=== PATIENT | female | born 1945 | race Caucasian/White ===

== ENCOUNTER 2018-10-02 10:35 | Inpatient (IN) | payer MEDICARE, OTHER ==
[~2018-10-02] VITALS: Ht 162.6 cm; Wt 65.8 kg
[~2018-10-02 10:35] MED LIST: AMLODIPINE BESYL5 MG PO; ASPIR 8181 MG PO; ATORVASTATIN CA10 MG PO; B12 PO; FENOFIBRATE145 MG PO; LOSARTAN-HCTZ1 EAC1 PO; METOPROLOL SUCC25 MG PO; SYNTHROID50 MCG PO; VITAMIN D1000 UNI1 PO; ZETIA10 MG PO
--- OUTSIDE RECORDS SUMMARY | 2018-10-02 10:38 | XMS REPORT | Summary of Care ---
Author Organization Unknown Address Unknown Phone Unavailable Encounter HQ Encntr_clay(FIN) [id number] Date(s): 08/16/14 - 08/16/14 [facility] Outpatient Imaging - [place] [address] [address] [phone] Discharge Disposition: Home Physician Attending: Leann Finnegan MD Vital Signs No data available for this section Problem List Condition Effective Dates Status Health Status Informant Acid Active reflux(Confirmed) Blood Active clot(Confirmed)1 Fatty Active liver(Confirmed) High Active cholesterol(Confirme d) HTN(Confirmed) Active Hypothyroid(Confirme Active d) Sinusitis(Confirmed) Active 1right Allergies, Adverse Reactions, Alerts Substance Reaction Severity Status NKDA Active Medications No data available for this section Results No data available for this section Immunizations No data available for this section Procedures No data available for this section Social History Social History Type Response Assessment and Plan No data available for this section
--- OUTSIDE RECORDS SUMMARY | 2018-10-02 10:38 | XMS REPORT | CCD ---
Author Author Auto Generated Organization [facility] Address Unknown Phone Unavailable Care Team Providers Care Taxonomist Name Role Phone Valery Nieves RP Allergies, Adverse Reactions, Alerts Substance Reaction Status NKDA Active Problem List Condition Effective Dates Status Acid reflux Active Blood clot1 Active Fatty liver Active High cholesterol Active HTN Active Hypothyroid Active Sinusitis Active 1right Medications Medication Instructions Start Date End Date Status losartan 100 mg oral 100 mg, 1 tab, PO, Daily, 30 tab, 12/28/2012 01/03/2013 Discontinued tablet Substitution Allowed, TAB Levoxyl 50 mcg (0.05 50 microgram, 1 tab, PO, Daily, 30 12/28/2012 Ordered mg) oral tablet tab, Substitution Allowed, TAB FENOFIBRATE 145 MG FENOFIBRATE 145 MG TABLET, 1 01/03/2013 01/04/2013 Discontinued TABLET TABLET, Drug form: MISC, Route: PO, Bedtime, 01/03/13 21:00:00, Duration: 30 day, Stop date: 02/01/13 21:00:00 pantoprazole 40 mg 40 mg, 1 tab, PO, Daily, 30 tab, 12/28/2012 Ordered oral enteric coated Substitution Allowed, ECTAB tablet amLODipine 5 mg, PO, Daily, Substitution 12/28/2012 Ordered Allowed, TAB metoprolol 100 mg 100 mg, 1 tab, PO, Daily, 30 tab, 12/28/2012 Ordered oral tablet, Substitution Allowed extended release Plavix 75 mg oral 75 mg, 1 tab, PO, Daily, 30 tab, 12/28/2012 Ordered tablet Substitution Allowed, TAB plavix 75 mg tablet plavix 75 mg tablet, 1 tablet, Drug 01/04/2013 01/04/2013 Discontinued form: MISC, Route: PO, Daily, 01/04/13 9:00:00, Duration: 30 day, Stop date: 02/02/13 9:00:00 magnesium sulfate 2 2 gm, 50 mL, Route: IVPB, Drug 01/03/2013 01/03/2013 Completed gm in Water 50 ml form: INJ, ONCE, Dosing Weight 69.091, kg, Start date: 01/03/13 15:52:00, Duration: 2 hr, Stop date: 01/03/13 15:52:00 NS 500 mL 500 mL, Rate: 30 ml/hr, Infuse 01/03/2013 01/03/2013 Completed over: 16.7 hr, Route: INTRAARTERIAL, Dosing Weight 69.091 kg, Total Volume: 500, Start date: 01/03/13 7:13:00, Duration: 12 hr, Stop date: 01/03/13 19:12:00 lidocaine 0.1 mL, Route: IV, Drug form: INJ, 01/03/2013 01/03/2013 Completed ONCALL, Start date: 01/03/13 5:00:00, Duration: 1 doses or times flumazenil 0.2 mg, 2 mL, Route: IVP, Drug 01/03/2013 01/03/2013 Discontinued form: INJ, PRN, Dosing Weight 69.091, kg, PRN Benzodiazepine Reversal, Initial dose, Start date: 01/03/13 8:51:00, Duration: 8 hr, Stop date: 01/03/13 16:50:00 morphine Sulfate 2 mg, 1 mL, Route: IVP, Drug form: 01/03/2013 01/03/2013 Discontinued INJ, Q5Min, Dosing Weight 69.091, kg, PRN Pain Score 4-6, Start date: 01/03/13 8:51:00, Duration: 5 doses or times, Stop date: Limited # of times ondansetron 4 mg, 2 mL, Route: IVP, Drug form: 01/03/2013 01/03/2013 Discontinued INJ, ONCE, Dosing Weight 69.091, kg, PRN Nausea & Vomiting, Start date: 01/03/13 8:51:00 naloxone 0.04 mg, 0.1 mL, Route: IVP, Drug 01/03/2013 01/03/2013 Discontinued form: INJ, Q2MIN, Dosing Weight 69.091, kg, PRN Narcotic Reversal, Start date: 01/03/13 8:51:00, Duration: 8 doses or times, Stop date: Limited # of times Lactated Ringers 1,000 mL, Rate: 100 ml/hr, Infuse 01/03/2013 01/03/2013 Completed Injection IV 1,000 over: 10 hr, Route: IV, Dosing mL Weight 69.091 kg, Total Volume: 1,000, Start date: 01/03/13 5:00:00, Duration: 1 doses or times, Stop date: 01/03/13 14:59:00 METOPROLOL ER 100 MG METOPROLOL ER 100 MG TABLET, 1 01/04/2013 01/04/2013 Discontinued TABLET TABLET, Drug form: MISC, Route: PO, Daily, 01/04/13 9:00:00, Duration: 30 day, Stop date: 02/02/13 9:00:00 chlorhexidine 15 ml, Route: S&SPIT, Q12H, Drug 01/04/2013 01/04/2013 Discontinued topical 0.12% liquid form: LIQ, Start date: 01/04/13 9:00:00, Duration: 2 week, Stop date: 01/17/13 21:00:00 nitroglycerin 0.4 mg, 1 tab, Route: SL, Drug 01/04/2013 01/04/2013 Discontinued form: TAB, Q5Min, Dosing Weight 73, kg, PRN Chest Pain, Start date: 01/04/13 5:38:00, Duration: 30 day, Stop date: 02/03/13 5:37:00 chlorhexidine 1 pkt, Route: BATHE, Q-M-W-F, Drug 01/04/2013 01/04/2013 Discontinued topical 4% soap form: SOLN, Start date: 01/04/13 9:00:00, Duration: 30 day, Stop date: 02/01/13 9:00:00 docusate 100 mg, 1 cap, Route: PO, Drug 01/04/2013 01/04/2013 Discontinued form: CAP, BID, Dosing Weight 73, kg, PRN Constipation, Start date: 01/04/13 5:38:00, Duration: 30 day, Stop date: 02/03/13 5:37:00 cefazolin + Sodium 1 gm, Route: IVPB, Drug form: 12/28/2012 01/03/2013 Discontinued Chloride 0.9% IV 100 PDR/INJ, ONCALL, Dosing Weight mL 64.545, kg, Start date: 12/28/12 11:00:00, Duration: 30 day, Stop date: 01/27/13 10:59:00 Sodium Chloride 0.9% 250 mL, Rate: call center supervisor for use with 12/28/2012 12/28/2012 Completed (titrate) 250 mL blood product administration, Dosing Weight 64.545, kg, Route: IV, Total Volume: 250, Duration: 12 hr, Stop date: 12/28/12 22:59:00, Replace Every: 12 hr Sodium Chloride 0.9% 1,000 mL, Rate: 125 ml/hr, Infuse 12/28/2012 01/03/2013 Discontinued IV 1,000 mL over: 8 hr, Route: IV, Dosing Weight 64.545 kg, Total Volume: 1,000, Start date: 12/28/12 10:43:00, Duration: 30 day, Stop date: 01/27/13 10:42:00 Xopenex 1.25 mg, Route: NEB, ONCE, Dosing 01/03/2013 01/03/2013 Completed Weight 69.091, kg, PRN Respiratory Protocol, Start date: 01/03/13 11:21:00, Stop date: 02/02/13 11:20:00 ZETIA 10 MG TABLET ZETIA 10 MG TABLET, 1 TABLET, Drug 01/04/2013 01/04/2013 Discontinued form: MISC, Route: PO, Daily, 01/04/13 9:00:00, Duration: 30 day, Stop date: 02/02/13 9:00:00 LOSARTAN/HCT 100-25 LOSARTAN/HCT 100-25 TABLET, 1 01/03/2013 01/04/2013 Discontinued TABLET TABLET, Drug form: MISC, Route: PO, Bedtime, 01/03/13 21:00:00, Duration: 30 day, Stop date: 02/01/13 21:00:00 pantoprazole 40 mg, 1 tab, Route: PO, Drug form: 01/03/2013 01/04/2013 Discontinued ECTAB, Before Dinner, Dosing Weight 69.091, kg, Start date: 01/03/13 16:30:00, Duration: 30 day, Stop date: 02/01/13 16:30:00 hydrochlorothiazide- 1 tab, PO, Daily, at bedtime, 30 01/03/2013 Ordered losartan 25 mg-100 tab, Substitution Allowed, mg oral tablet Maintenance, TAB at bedtime metoprolol extended 100 mg, 2 tab, Route: PO, Drug 01/04/2013 01/03/2013 Discontinued release form: ERTAB, Daily, Start date: 01/04/13 9:00:00, Duration: 30 day, Stop date: 02/02/13 9:00:00 Levoxyl 50 microgram, 1 tab, Route: PO, 01/04/2013 01/03/2013 Discontinued Drug form: TAB, Q630AM, Dosing Weight 69.091, kg, Start date: 01/04/13 6:30:00, Duration: 30 day, Stop date: 02/02/13 6:30:00 losartan 100 mg, 2 tab, Route: PO, Drug 01/04/2013 01/03/2013 Canceled form: TAB, Daily, Dosing Weight 69.091, kg, Start date: 01/04/13 9:00:00, Duration: 30 day, Stop date: 02/02/13 9:00:00 TriCor 144 mg, 3 tab, Route: PO, Drug 01/03/2013 01/03/2013 Discontinued form: TAB, Bedtime, Dosing Weight 69.091, kg, Start date: 01/03/13 21:00:00, Duration: 30 day, Stop date: 02/01/13 21:00:00 Zetia 10 mg, 1 tab, Route: PO, Drug form: 01/03/2013 01/03/2013 Discontinued TAB, Bedtime, Dosing Weight 69.091, kg, Start date: 01/03/13 21:00:00, Duration: 30 day, Stop date: 02/01/13 21:00:00 Plavix 75 mg, 1 tab, Route: PO, Drug form: 01/04/2013 01/03/2013 Discontinued TAB, Daily, Dosing Weight 69.091, kg, Start date: 01/04/13 9:00:00, Duration: 30 day, Stop date: 02/02/13 9:00:00 Omnicef 300 mg oral 300 mg, 1 cap, Route: PO, Drug 01/03/2013 01/03/2013 Discontinued capsule form: CAP, [id number], Dosing Weight 69.091, kg, Start date: 01/03/13 16:00:00, Duration: 30 day, Stop date: 02/02/13 4:00:00 amLODipine 5 mg, 1 tab, Route: PO, Drug form: 01/04/2013 01/03/2013 Discontinued TAB, Daily, Dosing Weight 69.091, kg, Start date: 01/04/13 9:00:00, Duration: 30 day, Stop date: 02/02/13 9:00:00 aspirin 81 mg 81 mg, 1 tab, Route: PO, Drug form: 01/03/2013 01/03/2013 Discontinued tablet, enteric ECTAB, Bedtime, Dosing Weight coated 69.091, kg, Start date: 01/03/13 21:00:00, Duration: 30 day, Stop date: 02/01/13 21:00:00 acetaminophen-hydroc 1 tab, PO, Q4H, PRN, 40 tab, Pain 01/04/2013 Ordered odone 325 mg-5 mg Score 1-3, Substitution Allowed, oral tablet Maintenance, TAB ondansetron 4 mg, 2 mL, Route: IVP, Drug form: 01/03/2013 01/04/2013 Discontinued INJ, Q8H, Dosing Weight 69.091, kg, PRN Nausea & Vomiting, Start date: 01/03/13 9:55:00, Duration: 30 day, Stop date: 02/02/13 9:54:00 promethazine 12.5 mg, 50 mL, Route: IVPB, Drug 01/03/2013 01/04/2013 Discontinued form: SOLN, Q6H, Dosing Weight 69.091, kg, PRN Nausea & Vomiting, Start date: 01/03/13 9:55:00, Duration: 30 day, Stop date: 02/02/13 9:54:00 nitroglycerin 0.4 mg, 1 tab, Route: SL, Drug 01/03/2013 01/04/2013 Discontinued form: TAB, Q5Min, Dosing Weight 69.091, kg, PRN Chest Pain, Start date: 01/03/13 9:55:00, Duration: 30 day, Stop date: 02/02/13 9:54:00 aspirin 81 mg 81 mg, Route: PO, Drug form: ECTAB, 01/04/2013 01/03/2013 Deleted tablet, enteric Daily, Dosing Weight 69.091, kg, coated Start date: 01/04/13 9:00:00, Duration: 30 day, Stop date: 02/02/13 9:00:00 morphine Sulfate 2 mg, 1 mL, Route: IVP, Drug form: 01/03/2013 01/04/2013 Discontinued INJ, Q2H, Dosing Weight 69.091, kg, PRN Pain Score 1-5, Start date: 01/03/13 9:55:00, Duration: 30 day, Stop date: 02/02/13 9:54:00 acetaminophen-hydroc 1 tab, Route: PO, Drug Form: TAB, 01/03/2013 01/04/2013 Discontinued odone 325 mg-5 mg Dosing Weight 69.091, kg, Q4H, PRN oral tablet Pain Score 1-3, Start date: 01/03/13 9:55:00, Duration: 30 day, Stop date: 02/02/13 9:54:00 cefazolin (SCIP) + 1 gm, Route: IVPB, [id number], Dosing 01/03/2013 01/04/2013 Completed Sodium Chloride 0.9% Weight 69.091, kg, Start date: IV 100 mL 01/03/13 15:00:00, Duration: 3 doses or times, Stop date: 01/04/13 7:00:00 Sodium Chloride 0.9% 1,000 mL, Rate: 100 ml/hr, Infuse 01/03/2013 01/03/2013 Completed IV 1,000 mL over: 10 hr, Route: IV, Dosing Weight 69.091 kg, Total Volume: 1,000, Start date: 01/03/13 9:55:00, Duration: 12 hr, Stop date: 01/03/13 21:54:00 amlodipine 5 mg amlodipine 5 mg tablet, 1 tablet, 01/04/2013 01/04/2013 Discontinued tablet Drug form: MISC, Route: PO, Daily, 01/04/13 9:00:00, Duration: 30 day, Stop date: 02/02/13 9:00:00 cefazolin 1 gm, Route: IVPB, ONCE, Dosing 01/03/2013 01/03/2013 Completed Weight 69.091, kg, Start date: 01/03/13 9:39:00, Duration: 1 doses or times, Stop date: 01/03/13 9:39:00 albuterol-ipratropiu 3 ml, Route: NEB, Drug Form: SOLN, 01/03/2013 01/04/2013 Discontinued m 2.5-0.5 mg Dosing Weight 69.091, kg, PRN, PRN inhalation solution Respiratory Protocol, Start date: 01/03/13 14:24:00, Duration: 30 day, Stop date: 02/02/13 14:23:00 LEVOXY 50 MCG TABLET LEVOXY 50 MCG TABLET, 1 TABLET, 01/04/2013 01/04/2013 Discontinued Drug form: MISC, Route: PO, Q630AM, 01/04/13 6:30:00, Duration: 30 day, Stop date: 02/02/13 6:30:00 Omnicef 300 mg oral 300 mg, 1 cap, PO, Q12H, 14 cap, 12/28/2012 01/03/2013 Discontinued capsule Substitution Allowed, CAP aspirin 81 mg 81 mg, 1 tab, PO, Daily, 0 tab, 12/28/2012 Ordered tablet, enteric Substitution Allowed, ECTAB coated Zetia 10 mg oral 10 mg, 1 tab, PO, Daily, 30 tab, 12/28/2012 Ordered tablet Substitution Allowed, TAB hydrochlorothiazide- 2 tab, Route: PO, Drug Form: TAB, 01/03/2013 01/03/2013 Discontinued losartan 25 mg-100 Dosing Weight 69.091, kg, Bedtime, mg oral tablet Start date: 01/03/13 21:00:00, Duration: 30 day, Stop date: 02/01/13 21:00:00 TriCor 145 mg, PO, Daily, Substitution 12/28/2012 Ordered Allowed, TAB ASPIRN EC 81 MG ASPIRN EC 81 MG TABLET, 1 TABLET, 01/03/2013 01/04/2013 Discontinued TABLET Drug form: MISC, Route: PO, Bedtime, 01/03/13 21:00:00, Duration: 30 day, Stop date: 02/01/13 21:00:00 niCARdipine 40 mg in 40 mg, 200 mL, Rate: Titrate, 01/03/2013 01/04/2013 Discontinued NS 200 ml IV 40 mg Dosing Weight 73, kg, Route: IV, Total Volume: 200 mL, Duration: 30 day, Stop date: 02/02/13 18:30:00, Replace Every: 24 hr Vital Signs Most recent to oldest [Reference Range]: 1 2 3 Height 162.56 cm (01/03/2013 16:39:00) 162.56 cm (12/28/2012 10:57:00) Current Weight 72 kg (01/04/2013 07:22:00) Temperature Oral [96.4-99.1 DegF] 97.4 DegF (01/04/2013 08:13:00) 97.6 DegF (01/04/2013 00:37:00) 97.5 DegF (01/03/2013 19:57:00) Systolic Blood Pressure [90-140 mmHg] 112 mmHg (01/04/2013 11:30:00) 119 mmHg (01/04/2013 11:00:00) 119 mmHg (01/04/2013 10:30:00) Diastolic Blood Pressure [60-90 mmHg] 60 mmHg (01/04/2013 11:30:00) 40 mmHg *LOW* (01/04/2013 11:00:00) 40 mmHg *LOW* (01/04/2013 10:30:00) Respiratory Rate [14-20 BRMIN] 20 BRMIN (01/04/2013 11:30:00) 30 BRMIN *HI* (01/04/2013 11:00:00) 22 BRMIN *HI* (01/04/2013 10:30:00) Peripheral Pulse Rate [60-100 bpm] 55 bpm *LOW* (01/03/2013 07:07:00) 63 bpm (01/03/2013 06:12:00) 65 bpm (12/28/2012 11:19:00) Weight 73 kg (01/03/2013 16:39:00) 69.091 kg (12/28/2012 10:57:00) Results BACTERIAL - SEROLOGY Most recent to oldest [Reference Range]: 1 2 3 MRSA by PCR Negative 1 (01/03/2013 15:45:00) 1Interpretive Data: Interpretive Data: The [employer] Light[employer]ycler MRSA assay is a qualitative test for the direct detection of nasal colonization with methicillin-resistant Staphylococcus aureus (MRSA) to aid in the prevention and control of MRSA infections in healthcare settings. A positive result does not indicate an infection or require treatment. A negative result does not exclude colonization or infection. The polymerase chain reaction (PCR) assay detects a proprietary sequence indicat patricia of the integration of the SCCmec cassette into the Staphylococcus aureus chr omosome, indicating the presence of MRSA DNA. The assay utilizes FDA cleared IV D reagents. Performance characteristics have been verified by the [facility] within the [facility]. The [facility] is authorized under the Clinical Laboratory Improvement Amendment of 1 988 (CLIA-88) to perform high complexity testing. BEDSIDE GLUCOSE TESTING Most recent to [Reference Range]: 1 2 3 Gluc POC Lifscn [70-99 mg/dL] 137 mg/dL 2 *HI* (01/04/2013 07:55:00) 212 mg/dL 3 *HI* (01/03/2013 20:33:00) 128 mg/dL 4 *HI* (01/03/2013 15:31:00) Comment1 Notify RN *NA* (01/03/2013 20:33:00) 2Interpretive Data: Upper Reportable Limit: 200 mg/dL. 3Interpretive Data: Upper Reportable Limit: 200 mg/dL. 4Interpretive Data: Upper Reportable Limit: 200 mg/dL. URINALYSIS Most recent to oldest [Reference Range]: 1 2 3 UA Turbidity [Clear] Clear (12/28/2012 11:15:00) UA Color STRAW *NA* (12/28/2012 11:15:00) UA pH [5.0-8.0] 6.0 (12/28/2012 11:15:00) UA Spec Grav [<=1.030] 1.010 (12/28/2012 11:15:00) UA Glucose [Negative] Negative (12/28/2012 11:15:00) UA Blood [Negative] Negative (12/28/2012 11:15:00) UA Ketones [Negative] Negative *NA* (12/28/2012 11:15:00) UA Protein [Negative] Negative (12/28/2012 11:15:00) UA Urobilinogen [0.1-1.0 EU/dL] 0.2 EU/dL (12/28/2012 11:15:00) UA Bili [Negative] Negative *NA* (12/28/2012 11:15:00) UA Leuk Est [Negative] Trace *ABN* (12/28/2012 11:15:00) UA Nitrite [Negative] Negative (12/28/2012 11:15:00) UA WBC [None Seen /HPF] 0-2 /HPF (12/28/2012 11:15:00) UA RBC [0-2] None Seen (12/28/2012 11:15:00) UA Bacteria [None Seen /HPF] Occasional /HPF (12/28/2012 11:15:00) UA Sq Epi [Few /LPF] Occasional /LPF (12/28/2012 11:15:00) BLOOD BANK RESULTS Most recent to oldest [Reference Range]: 1 2 3 ABO/Rh A POS *Unknown* (12/28/2012 11:15:00) Antibody Scrn Negative (12/28/2012 11:15:00) CHEMISTRY Most recent to oldest [Reference Range]: 1 2 3 Sodium Lvl [135-145 mEq/L] 138 mEq/L (12/28/2012 11:15:00) Potassium Lvl [3.5-5.1 mEq/L] 4.8 mEq/L (12/28/2012 11:15:00) Chloride Lvl [95-109 mEq/L] 102 mEq/L (12/28/2012 11:15:00) CO2 [24-32 mEq/L] 28 mEq/L (12/28/2012 11:15:00) AGAP [10.0-20.0 mEq/L] 12.8 mEq/L (12/28/2012 11:15:00) Creatinine Lvl [0.5-1.4 mg/dL] 0.8 mg/dL (12/28/2012 11:15:00) eGFR 77 mL/min/1.73m2 5 *NA* (12/28/2012 11:15:00) BUN [7-22 mg/dL] 29 mg/dL *HI* (12/28/2012 11:15:00) Glucose Lvl [70-99 mg/dL] 107 mg/dL 6 *HI* (12/28/2012 11:15:00) Calcium Lvl [8.5-10.5 mg/dL] 10.0 mg/dL (12/28/2012 11:15:00) Phosphorus [2.5-4.5 mg/dL] 3.5 mg/dL (12/28/2012::00) Magnesium Lvl [1.8-2.4 mg/dL] 1.7 mg/dL *LOW* (12/28/2012:15:00) AST [0-37 unit/L] 40 unit/L *HI* (12/28/2012::00) pH Art [7.35-7.45] 7.40 (12/28/2012 11:10:24) pCO2 Art [35-45 mmHg] 40 mmHg (12/28/2012:10:24) pO2 Art [80-100 mmHg] 82 mmHg (12/28/2012:10:24) HCO3 Art [22-26 mMol/L] 25 mMol/L (12/28/2012:10:24) BE Art [-2-2 mMol/L] 0 mMol/L (12/28/2012:10:24) O2 Sat Art [95.0-100.0 %] 96.0 % (12/28/2012 11:10:24) Site Art Left Rad (12/28/2012 11:10:24) Temp Art 37.0 DegC *NA* (12/28/2012 11:10:24) Allens Art Positive (12/28/2012:10:24) Mode Art Rm Air (12/28/2012:10:24) FiO2 Art 21.0 *NA* (12/28/2012 11:10:24) 5Result Comment: The eGFR is calculated using the CKD-EPI formula. In most young, healthy individuals the eGFR will be >90 mL/min/1.73m2. The eGFR declines with age. An eGFR of 60-89 may be normal in some populations, particularly the elderly, for whom the CKD-EPI formula has not been extensively validated. Use of the eGFR is not recommended in the following populations: Individuals with unstable creatinine concentrations, including patients and those with serious co-morbid conditions. Patients with extremes in muscle mass or diet. The data above are obtained from the National Kidney Disease Education Program ( NKDEP) which additionally recommends that when the eGFR is used in patients with extremes of body mass index for purposes of drug dosing, the eGFR should be mul tiplied by the estimated BMI. 6Interpretive Data: Adult reference range values reflect the clinical guidelines of the [place] [employer]. HEMATOLOGY Most recent to oldest [Reference Range]: 1 2 3 WBC [3.7-10.4 K/CMM] 7.7 K/CMM (12/28/2012:15:) RBC [4.20-5.40 M/CMM] 4.34 M/CMM (12/28/2012::) Hgb [12.0-16.0 g/dL] 13.0 g/dL (12/28/2012::) Hct [36.0-48.0 %] 40.3 % (12/28/2012) MCV [81.0-99.0 fL] 92.8 fL (12/28/2012) MCH [27.0-31.0 pg] 30.0 pg (12/28/2012) MCHC [32.0-36.0 g/dL] 32.3 g/dL (12/28/2012::) RDW [11.5-14.5 %] 14.1 % (12/28/2012) Platelet [133-450 K/CMM] 222 K/CMM (12/28/2012:) MPV [7.4-10.4 fL] 9.3 fL (12/28/2012::) Segs [45.0-75.0 %] 80.9 % *HI* (12/28/2012) Lymphocytes [20.0-40.0 %] 13.5 % *LOW* (12/28/2012) Monocytes [2.0-12.0 %] 5.0 % (12/28/2012) Eosinophils [0.0-4.0 %] 0.3 % (12/28/2012) Basophils [0.0-1.0 %] 0.3 % (12/28/2012) Segs-Bands # [1.5-8.1 K/CMM] 6.2 K/CMM (12/28/2012 11:15:00) Lymphocytes # [1.0-5.5 K/CMM] 1.0 K/CMM (12/28/2012 11:15:00) Monocytes # [0.0-0.8 K/CMM] 0.4 K/CMM (12/28/2012 11:15:00) Eosinophils # [0.0-0.5 K/CMM] 0.0 K/CMM (12/28/2012 11:15:00) Basophils # [0.0-0.2 K/CMM] 0.0 K/CMM (12/28/2012 11:15:00) PT [12.0-14.7 seconds] 13.3 seconds (12/28/2012 11:15:00) INR [0.85-1.17] 0.99 7 (12/28/2012 11:15:00) PTT [22.9-35.8 seconds] 27.4 seconds 8 (12/28/2012 11:15:00) 7Interpretive Data: RECOMMENDED RANGES FOR PROTIME INR: 2.0-3.0 for most medical and surgical thromboembolic states. 2.5-3.5 for artificial heart valves and recurrent embolism. INR SHOULD BE USED ONLY FOR PATIENTS ON STABLE ANTICOAGULANT THERAPY. 8Interpretive Data: Heparin Therapeutic Range: 57 - 92 Seconds Microbiology Reports PROCEDURE:Culture: MRSA STATUS: Auth (Verified) BODY SITE: Nares COLLECTED DATE/TIME: 12/28/2012 11:15:00 SOURCE: Nasal Swab FREE TEXT SOURCE: FINAL REPORTS Final Report No Methicillin Resistant Staphylococcus Aureus Isolated PROCEDURE:Culture: Urine STATUS: Auth (Verified) BODY SITE: COLLECTED DATE/TIME: 12/28/2012 11:15:00 SOURCE: Urine, Clean Catch FREE TEXT SOURCE: FINAL REPORTS Final Report No Growth PRELIMINARY REPORTS Preliminary Report No Growth; Holding Procedures Procedures Date Related Diagnosis Angioplasty of subclavian artery Appendectomy Arthrectomy Bunionectomy Cataract Femoral-popliteal artery bypass graft 1 History of - hysterectomy History of tonsillectomy 83976
--- OUTSIDE RECORDS SUMMARY | 2018-10-02 10:38 | XMS REPORT | Summary of Care ---
Author Organization Unknown Address Unknown Phone Unavailable Encounter HQ Coronantr_clay(FIN) [id number] Date(s): 07/03/14 - 07/03/14 [facility] Outpatient Imaging - [place] [address] [place] [id number]- [place] Discharge Disposition: Home Physician Attending: Leann Finnegan MD Reason for Visit V76.12 - SCREEN MAMMOGRA Problem List Condition Effective Dates Status Health Status Informant Acid Active reflux(Confirmed) Blood Active clot(Confirmed)1 Fatty Active liver(Confirmed) High Active cholesterol(Confirme d) HTN(Confirmed) Active Hypothyroid(Confirme Active d) Sinusitis(Confirmed) Active 1right Allergies, Adverse Reactions, Alerts Substance Reaction Severity Status NKDA Active Medications No data available for this section Medications Administered During Your Visit No data available for this section Immunizations No data available for this section Social History Social History Type Response
--- OUTSIDE RECORDS SUMMARY | 2018-10-02 10:38 | XMS REPORT | Continuity of Care Document ---
Author Author [facility] Interface Address Unknown Phone Unavailable Problems Problem Status Onset Date Classification Date Reported Comments Source 443.10 Active 12/16/2012 [place] Acid reflux Active Problem 02/21/2015 [facility] Blood clot<sup>1</sup> Active Problem 02/21/2015 right [facility] Fatty liver Active Problem 02/21/2015 [facility] High cholesterol Active Problem 02/21/2015 [facility] HTN Active Problem 02/21/2015 [facility] Hypothyroid Active Problem 02/21/2015 [facility] Sinusitis Active Problem 02/21/2015 [facility] Acid reflux Active Problem 01/06/2013 [facility] Blood clot<sup>1</sup> Active Problem 01/06/2013 1right [facility] Fatty liver Active Problem 01/06/2013 [facility] High cholesterol Active Problem 01/06/2013 [facility] HTN Active Problem 01/06/2013 [facility] Hypothyroid Active Problem 01/06/2013 [facility] Sinusitis Active Problem 01/06/2013 [facility] THROMBOANGIIT OBLITERANS Active [facility] Medications Medication Details Route Status Patient Instructions Ordering Provider Order Date Source plavix 75 mg tablet plavix 75 mg tablet, 1 tablet, Drug form: MISC, Route: PO, Daily, 01/04/13 9:00:00, Duration: 30 day, Stop date: 02/02/13 9:00:00 PO No Longer Active [place] 01/04/2013 [facility] METOPROLOL ER 100 MG TABLET METOPROLOL ER 100 MG TABLET, 1 TABLET, Drug form: MISC, Route: PO, Daily, 01/04/13 9:00:00, Duration: 30 day, Stop date: 02/02/13 9:00:00 PO No Longer Active [place] 01/04/2013 [facility] chlorhexidine topical 0.12% liquid 15 ml, Route: S&SPIT, Q12H, Drug form: LIQ, Start date: 01/04/13 9:00:00, Duration: 2 week, Stop date: 01/17/13 21:00:00 S&SPIT No Longer Active [place] 01/04/2013 [facility] chlorhexidine topical 4% soap 1 pkt, Route: BATHE, [id number], Drug form: SOLN, Start date: 01/04/13 9:00:00, Duration: 30 day, Stop date: 02/01/13 9:00:00 BATHE No Longer Active [place] 01/04/2013 [facility] ZETIA 10 MG TABLET ZETIA 10 MG TABLET, 1 TABLET, Drug form: MISC, Route: PO, Daily, 01/04/13 9:00:00, Duration: 30 day, Stop date: 02/02/13 9:00:00 PO No Longer Active [place] 01/04/2013 [facility] metoprolol extended release 100 mg, 2 tab, Route: PO, Drug form: ERTAB, Daily, Start date: 01/04/13 9:00:00, Duration: 30 day, Stop date: 02/02/13 9:00:00 PO No Longer Active [place] 01/04/2013 [facility] losartan 100 mg, 2 tab, Route: PO, Drug form: TAB, Daily, Dosing Weight 69.091, kg, Start date: 01/04/13 9:00:00, Duration: 30 day, Stop date: 02/02/13 9:00:00 PO No Longer Active te 01/04/2013 [facility] Plavix 75 mg, 1 tab, Route: PO, Drug form: TAB, Daily, Dosing Weight 69.091, kg, Start date: 01/04/13 9:00:00, Duration: 30 day, Stop date: 02/02/13 9:00:00 PO No Longer Active [place] 01/04/2013 [facility] amLODipine 5 mg, 1 tab, Route: PO, Drug form: TAB, Daily, Dosing Weight 69.091, kg, Start date: 01/04/13 9:00:00, Duration: 30 day, Stop date: 02/02/13 9:00:00 PO No Longer Active [place] 01/04/2013 [facility] aspirin 81 mg tablet, enteric coated 81 mg, Route: PO, Drug form: ECTAB, Daily, Dosing Weight 69.091, kg, Start date: 01/04/13 9:00:00, Duration: 30 day, Stop date: 02/02/13 9:00:00 PO No Longer Active te 01/04/2013 [facility] amlodipine 5 mg tablet amlodipine 5 mg tablet, 1 tablet, Drug form: MISC, Route: PO, Daily, 01/04/13 9:00:00, Duration: 30 day, Stop date: 02/02/13 9:00:00 PO No Longer Active [place] 01/04/2013 [facility] acetaminophen-hydrocodone 325 mg-5 mg oral tablet 1 tab, PO, Q4H, PRN, 40 tab, Pain Score 1-3, Substitution Allowed, Maintenance, TAB PO Active [facility] 01/04/2013 [facility] Levoxyl 50 microgram, 1 tab, Route: PO, Drug form: TAB, Q630AM, Dosing Weight 69.091, kg, Start date: 01/04/13 6:30:00, Duration: 30 day, Stop date: 02/02/13 6:30:00 PO No Longer Active te 01/04/2013 [facility] LEVOXY 50 MCG TABLET LEVOXY 50 MCG TABLET, 1 TABLET, Drug form: MISC, Route: PO, Q630AM, 01/04/13 6:30:00, Duration: 30 day, Stop date: 02/02/13 6:30:00 PO No Longer Active te 01/04/2013 [facility] nitroglycerin 0.4 mg, 1 tab, Route: SL, Drug form: TAB, Q5Min, Dosing Weight 73, kg, PRN Chest Pain, Start date: 01/04/13 5:38:00, Duration: 30 day, Stop date: 02/03/13 5:37:00 SL No Longer Active te 01/04/2013 [facility] docusate 100 mg, 1 cap, Route: PO, Drug form: CAP, BID, Dosing Weight 73, kg, PRN Constipation, Start date: 01/04/13 5:38:00, Duration: 30 day, Stop date: 02/03/13 5:37:00 PO No Longer Active [place] 01/04/2013 [facility] FENOFIBRATE 145 MG TABLET FENOFIBRATE 145 MG TABLET, 1 TABLET, Drug form: MISC, Route: PO, Bedtime, 01/03/13 21:00:00, Duration: 30 day, Stop date: 02/01/13 21:00:00 PO No Longer Active [place] 01/04/2013 [facility] LOSARTAN/HCT 100-25 TABLET LOSARTAN/HCT 100-25 TABLET, 1 TABLET, Drug form: MISC, Route: PO, Bedtime, 01/03/13 21:00:00, Duration: 30 day, Stop date: 02/01/13 21:00:00 PO No Longer Active [place] 01/04/2013 [facility] TriCor 144 mg, 3 tab, Route: PO, Drug form: TAB, Bedtime, Dosing Weight 69.091, kg, Start date: 01/03/13 21:00:00, Duration: 30 day, Stop date: 02/01/13 21:00:00 PO No Longer Active [place] 01/04/2013 [facility] Zetia 10 mg, 1 tab, Route: PO, Drug form: TAB, Bedtime, Dosing Weight 69.091, kg, Start date: 01/03/13 21:00:00, Duration: 30 day, Stop date: 02/01/13 21:00:00 PO No Longer Active [place] 01/04/2013 [facility] aspirin 81 mg tablet, enteric coated 81 mg, 1 tab, Route: PO, Drug form: ECTAB, Bedtime, Dosing Weight 69.091, kg, Start date: 01/03/13 21:00:00, Duration: 30 day, Stop date: 02/01/13 21:00:00 PO No Longer Active [place] 01/04/2013 [facility] hydrochlorothiazide-losartan 25 mg-100 mg oral tablet 2 tab, Route: PO, Drug Form: TAB, Dosing Weight 69.091, kg, Bedtime, Start date: 01/03/13 21:00:00, Duration: 30 day, Stop date: 02/01/13 21:00:00 PO No Longer Active [place] 01/04/2013 [facility] ASPIRN EC 81 MG TABLET ASPIRN EC 81 MG TABLET, 1 TABLET, Drug form: MISC, Route: PO, Bedtime, 01/03/13 21:00:00, Duration: 30 day, Stop date: 02/01/13 21:00:00 PO No Longer Active [place] 01/04/2013 [facility] niCARdipine 40 mg in NS 200 ml IV 40 mg 40 mg, 200 mL, Rate: Titrate, Dosing Weight 73, kg, Route: IV, Total Volume: 200 mL, Duration: 30 day, Stop date: 02/02/13 18:30:00, Replace Every: 24 hr IV No Longer Active te 01/03/2013 [facility] pantoprazole 40 mg, 1 tab, Route: PO, Drug form: ECTAB, Before Dinner, Dosing Weight 69.091, kg, Start date: 01/03/13 16:30:00, Duration: 30 day, Stop date: 02/01/13 16:30:00 PO No Longer Active [place] 01/03/2013 [facility] hydrochlorothiazide-losartan 25 mg-100 mg oral tablet 1 tab, PO, Daily, at bedtime, 30 tab, Substitution Allowed, Maintenance, TABat bedtime PO Active 01/03/2013 [facility] Omnicef 300 mg oral capsule 300 mg, 1 cap, Route: PO, Drug form: CAP, [id number], Dosing Weight 69.091, kg, Start date: 01/03/13 16:00:00, Duration: 30 day, Stop date: 02/02/13 4:00:00 PO No Longer Active te 01/03/2013 [facility] magnesium sulfate 2 gm in Water 50 ml 2 gm, 50 mL, Route: IVPB, Drug form: INJ, ONCE, Dosing Weight 69.091, kg, Start date: 01/03/13 15:52:00, Duration: 2 hr, Stop date: 01/03/13 15:52:00 IVPB No Longer Active [place] 01/03/2013 [facility] cefazolin (SCIP) + Sodium Chloride 0.9% IV 100 mL 1 gm, Route: IVPB, [id number], Dosing Weight 69.091, kg, Start date: 01/03/13 15:00:00, Duration: 3 doses or times, Stop date: 01/04/13 7:00:00 IVPB No Longer Active [place] 01/03/2013 [facility] albuterol-ipratropium 2.5-0.5 mg inhalation solution 3 ml, Route: NEB, Drug Form: SOLN, Dosing Weight 69.091, kg, PRN, PRN Respiratory Protocol, Start date: 01/03/13 14:24:00, Duration: 30 day, Stop date: 02/02/13 14:23:00 NEB No Longer Active [facility] 01/03/2013 [facility] Xopenex 1.25 mg, Route: NEB, ONCE, Dosing Weight 69.091, kg, PRN Respiratory Protocol, Start date: 01/03/13 11:21:00, Stop date: 02/02/13 11:20:00 NEB No Longer Active [facility] 01/03/2013 [facility] ondansetron 4 mg, 2 mL, Route: IVP, Drug form: INJ, Q8H, Dosing Weight 69.091, kg, PRN Nausea & Vomiting, Start date: 01/03/13 9:55:00, Duration: 30 day, Stop date: 02/02/13 9:54:00 IVP No Longer Active [facility] 01/03/2013 [facility] promethazine 12.5 mg, 50 mL, Route: IVPB, Drug form: SOLN, Q6H, Dosing Weight 69.091, kg, PRN Nausea & Vomiting, Start date: 01/03/13 9:55:00, Duration: 30 day, Stop date: 02/02/13 9:54:00 IVPB No Longer Active [facility] 01/03/2013 [facility] nitroglycerin 0.4 mg, 1 tab, Route: SL, Drug form: TAB, Q5Min, Dosing Weight 69.091, kg, PRN Chest Pain, Start date: 01/03/13 9:55:00, Duration: 30 day, Stop date: 02/02/13 9:54:00 SL No Longer Active [facility] 01/03/2013 [facility] morphine Sulfate 2 mg, 1 mL, Route: IVP, Drug form: INJ, Q2H, Dosing Weight 69.091, kg, PRN Pain Score 1-5, Start date: 01/03/13 9:55:00, Duration: 30 day, Stop date: 02/02/13 9:54:00 IVP No Longer Active [facility] 01/03/2013 [facility] acetaminophen-hydrocodone 325 mg-5 mg oral tablet 1 tab, Route: PO, Drug Form: TAB, Dosing Weight 69.091, kg, Q4H, PRN Pain Score 1-3, Start date: 01/03/13 9:55:00, Duration: 30 day, Stop date: 02/02/13 9:54:00 PO No Longer Active [facility] 01/03/2013 [facility] Sodium Chloride 0.9% IV 1,000 mL 1,000 mL, Rate: 100 ml/hr, Infuse over: 10 hr, Route: IV, Dosing Weight 69.091 kg, Total Volume: 1,000, Start date: 01/03/13 9:55:00, Duration: 12 hr, Stop date: 01/03/13 21:54:00 IV No Longer Active [facility] 01/03/2013 [facility] cefazolin 1 gm, Route: IVPB, ONCE, Dosing Weight 69.091, kg, Start date: 01/03/13 9:39:00, Duration: 1 doses or times, Stop date: 01/03/13 9:39:00 IVPB No Longer Active [facility] 01/03/2013 [facility] flumazenil 0.2 mg, 2 mL, Route: IVP, Drug form: INJ, PRN, Dosing Weight 69.091, kg, PRN Benzodiazepine Reversal, Initial dose, Start date: 01/03/13 8:51:00, Duration: 8 hr, Stop date: 01/03/13 16:50:00 IVP No Longer Active [facility] 01/03/2013 [facility] morphine Sulfate 2 mg, 1 mL, Route: IVP, Drug form: INJ, Q5Min, Dosing Weight 69.091, kg, PRN Pain Score 4-6, Start date: 01/03/13 8:51:00, Duration: 5 doses or times, Stop date: Limited # of times IVP No Longer Active [facility] 01/03/2013 [facility] ondansetron 4 mg, 2 mL, Route: IVP, Drug form: INJ, ONCE, Dosing Weight 69.091, kg, PRN Nausea & Vomiting, Start date: 01/03/13 8:51:00 IVP No Longer Active [facility] 01/03/2013 [facility] naloxone 0.04 mg, 0.1 mL, Route: IVP, Drug form: INJ, Q2MIN, Dosing Weight 69.091, kg, PRN Narcotic Reversal, Start date: 01/03/13 8:51:00, Duration: 8 doses or times, Stop date: Limited # of times IVP No Longer Active [place] 01/03/2013 [facility] NS 500 mL 500 mL, Rate: 30 ml/hr, Infuse over: 16.7 hr, Route: INTRAARTERIAL, Dosing Weight 69.091 kg, Total Volume: 500, Start date: 01/03/13 7:13:00, Duration: 12 hr, Stop date: 01/03/13 19:12:00 INTRAARTERIAL No Longer Active [place] 01/03/2013 [facility] lidocaine 0.1 mL, Route: IV, Drug form: INJ, ONCALL, Start date: 01/03/13 5:00:00, Duration: 1 doses or times IV No Longer Active [employer] [place] 01/03/2013 [facility] Lactated Ringers Injection IV 1,000 mL 1,000 mL, Rate: 100 ml/hr, Infuse over: 10 hr, Route: IV, Dosing Weight 69.091 kg, Total Volume: 1,000, Start date: 01/03/13 5:00:00, Duration: 1 doses or times, Stop date: 01/03/13 14:59:00 IV No Longer Active [employer] 01/03/2013 [facility] Omnicef 300 mg oral capsule 300 mg, 1 cap, PO, Q12H, 14 cap, Substitution Allowed, CAP PO No Longer Active [facility] 12/28/2012 [facility] aspirin 81 mg tablet, enteric coated 81 mg, 1 tab, PO, Daily, 0 tab, Substitution Allowed, ECTAB PO Active [facility] 12/28/2012 [facility] Zetia 10 mg oral tablet 10 mg, 1 tab, PO, Daily, 30 tab, Substitution Allowed, TAB PO Active [facility] 12/28/2012 [facility] TriCor 145 mg, PO, Daily, Substitution Allowed, TAB PO Active [facility] 12/28/2012 [facility] losartan 100 mg oral tablet 100 mg, 1 tab, PO, Daily, 30 tab, Substitution Allowed, TAB PO No Longer Active [facility] 12/28/2012 [facility] Levoxyl 50 mcg (0.05 mg) oral tablet 50 microgram, 1 tab, PO, Daily, 30 tab, Substitution Allowed, TAB PO Active [facility] 12/28/2012 [facility] pantoprazole 40 mg oral enteric coated tablet 40 mg, 1 tab, PO, Daily, 30 tab, Substitution Allowed, ECTAB PO Active [facility] 12/28/2012 [facility] amLODipine 5 mg, PO, Daily, Substitution Allowed, TAB PO Active [facility] 12/28/2012 [facility] metoprolol 100 mg oral tablet, extended release 100 mg, 1 tab, PO, Daily, 30 tab, Substitution Allowed PO Active [facility] 12/28/2012 [facility] Plavix 75 mg oral tablet 75 mg, 1 tab, PO, Daily, 30 tab, Substitution Allowed, TAB PO Active [facility] 12/28/2012 [facility] cefazolin + Sodium Chloride 0.9% IV 100 mL 1 gm, Route: IVPB, Drug form: PDR/INJ, ONCALL, Dosing Weight 64.545, kg, Start date: 12/28/12 11:00:00, Duration: 30 day, Stop date: 01/27/13 10:59:00 IVPB No Longer Active [facility] 12/28/2012 [facility] Sodium Chloride 0.9% (titrate) 250 mL 250 mL, Rate: square dance caller for use with blood product administration, Dosing Weight 64.545, kg, Route: IV, Total Volume: 250, Duration: 12 hr, Stop date: 12/28/12 22:59:00, Replace Every: 12 hr IV No Longer Active [facility] 12/28/2012 [facility] Sodium Chloride 0.9% IV 1,000 mL 1,000 mL, Rate: 125 ml/hr, Infuse over: 8 hr, Route: IV, Dosing Weight 64.545 kg, Total Volume: 1,000, Start date: 12/28/12 10:43:00, Duration: 30 day, Stop date: 01/27/13 10:42:00 IV No Longer Active [facility] 12/28/2012 [facility] Allergies, Adverse Reactions, Alerts Substance Category Reaction Severity Reaction type Status Date Reported Comments Source Immunizations Immunization Date Given Site Status Last Updated Comments Source Results Order Name Results Value Reference Range Date Interpretation Comments Source Spine lumbar wo contrast MRI Spine lumbar wo contrast MRI MRI LUMBAR SPINE WITHOUT CONTRAST COMPARISON: 08/16/2014 radiograph exam. TECHNIQUE: Sagittal T1, sagittal T2 with fat saturation, axial T1 and axial T2 images were obtained. No intravenous gadolinium was given. FINDINGS: The paravertebral soft tissues are normal. The conus medullaris terminates at the L1 level. Mild dextrocurvature of the lumbar spine is present. Congenital shortened lumbar pedicles are seen. Mild T12 superior endplate compression deformity is again seen with a left-sided Schmorl's node. No marrow edema or retropulsion is identified and this is compatible with chronic injury. No acute or subacute lumbar spine vertebral compression fracture is present. T12-L1: Unremarkable. L1-L2: Moderate disc narrowing is present. 3 mm disc bulge is present. There is also a 3.9 mm left lateral recess in filling migrated disc extrusion with mass effect on the left L2 descending nerve root. Mild central canal stenosis is present. Moderate bilateral foraminal stenosis is present due to disc osteophyte complex encroachment. L2-L3: Similar degenerative changes are seen with 4 mm disc osteophyte complex and mild to moderate central canal stenosis and bilateral foraminal stenosis. No disc extrusion is present. The lateral recesses are is stenotic. L3-L4: Grade 1 retrolisthesis of L3 and L4 is present with moderate posterior element hypertrophy. Disc bulge and superimposed 7 mm left paracentral disc extrusion is seen with severe central canal stenosis and effacement of the lateral recesses. The thecal sac measures 3.9 mm in AP dimension at this level. There is severe left foraminal stenosis and moderate right foraminal stenosis. L4-L5: Severe bilateral facet osteoarthritis is present with minimal grade 1 anterolisthesis. Moderate to severe central canal stenosis is seen. Right laminotomy changes are present. The lateral recesses are stenotic with mass effect on the bilateral L5 descending nerve roots. Severe right foraminal stenosis is present with mass effect on right L4 exiting nerve root. Moderate left foraminal stenosis is present. L5-S1: 3.5 mm disc osteophyte complex is present with lateral recess stenosis and mass effect on the bilateral S1 descending nerve roots and moderate central canal stenosis. Severe bilateral foraminal stenosis due to disc osteophyte complexes is present. IMPRESSION: 1. Multilevel disc degenerative disease and spondylosis. Congenital shortened lumbar pedicles are seen. 2. L3-L4 severe central canal stenosis, L4-L5 moderate to severe central canal stenosis. Other levels of mild to moderate central canal stenosis present. Multilevel mass effect on descending nerve roots present due to lateral recess stenosis. 3. Multilevel significant foraminal stenosis as above. 4. Chronic T12 mild vertebral compression fracture. 02/18/2015 - - Read by: Urbano Orellana MD Dictated Date/time: 02/18/15 11:00 Electronically Signed by: Urbano Orellana MD 02/18/15 11:14 FINAL REPORT [facility] [place] Spine lumbar series DX Spine lumbar series DX EXAM: 5 view(s) of the lumbar spine. INDICATION: Thoracic lumbosacral neuritis or radiculitis. COMPARISON: None. FINDINGS: Alignment: Trace retrolisthesis of L3 on L4 and anterolisthesis of L4 on L5. Fracture: Mild anterior compression deformity of T12 vertebral body which is age-indeterminate but maybe chronic. No pars defects. Spondylosis: Multilevel lumbar degenerative changes with degenerative disc disease and facet hypertrophy periods. Other: Vascular calcifications. Vascular stent. Possible tiny nonobstructing left renal calculi. IMPRESSION: 1. Age indeterminate but possibly chronic mild T12 compression deformity. Consider correlation for point tenderness, and if clinically indicated, consider MRI. 2. Multilevel lumbar spondylosis. 08/16/2014 - - Read by: Dewayne Chester MD Dictated Date/time: 08/16/14 15:04 Electronically Signed by: Dewayne Chester MD 08/16/14 15:09 FINAL REPORT CHRIS MARTHATrinh Dangelo Sacroiliac joints series DX Sacroiliac joints series DX EXAMINATION: Sacroiliac joint series. HISTORY: Sacroiliac joint pain. FINDINGS: 3 views of the sacroiliac joints are performed without comparison. The bilateral sacroiliac joints are normal without asymmetric joint space narrowing, subchondral sclerosis, ankylosis, or erosions. Severe degenerative disc disease is noted at L5-S1. Arterial atherosclerotic calcifications through. IMPRESSION: 1. Normal bilateral sacroiliac joints without asymmetric joint space narrowing, subchondral sclerosis, ankylosis, or erosions. 2. Severe L5-S1 degenerative disc disease. 08/16/2014 - - Read by: Humza Yusuf MD Dictated Date/time: 08/16/14 15:27 Electronically Signed by: Humza Yusuf MD 08/16/14 15:30 FINAL REPORT ALEN Dangelo Digital Mammo Screening [place] Digital Mammo Screening [place] - DIGITAL MAMMO SCREENING [place] BILATERAL DIGITAL SCREENING MAMMOGRAM WITH CAD: 07/03/2014 CLINICAL: Annual Screening. Current study was evaluated with a Computer Aided Detection (CAD) system. Comparison is made to exams dated: 09/13/2001 mammogram and 02/29/2008 [facility]. The tissue of both breasts is almost entirely fat. No significant masses, calcifications, or other findings are seen in either breast. There has been no significant interval change. IMPRESSION: NEGATIVE There is no mammographic evidence of malignancy. A screening mammogram in one year is recommended. Dr. Lester De Leon M.D. eoc/penrad:07/09/2014 15:25:21 Green Chain Worker: Billie KHAN(R)(M), [facility] This exam was dictated and interpreted by [id number] for CHRIS Ryder. letter sent: Normal exam Mammogram BI-RADS: 1 Negative 07/03/2014 - - Read by: Lester De Leon MD Dictated Date/time: 07/09/14 15:25 Electronically Signed by: Lester De Leon MD 07/09/14 15:25 FINAL REPORT [facility] BEDSIDE GLUCOSE TESTING Gluc POC Lifscn 137 mg/dL 70 - 99 01/04/2013 HI 2Interpretive Data: Upper Reportable Limit: 200 mg/dL. [facility] BEDSIDE GLUCOSE TESTING Comment1 Notify RN 01/04/2013 ELSA [facility] BEDSIDE GLUCOSE TESTING Gluc POC Lifscn 212 mg/dL 70 - 99 01/04/2013 HI 3Interpretive Data: Upper Reportable Limit: 200 mg/dL. [facility] BACTERIAL - SEROLOGY MRSA by PCR Negative 1 (01/03/2013 15:45:00) 01/03/2013 Normal 1Interpretive Data: Interpretive Data: The [employer] Light[employer]ycler [...] reaction (PCR) assay detects a proprietary sequence indicative of the integration of the SCCmec cassette into the Staphylococcus aureus chromosome, indicating the presence of MRSA DNA. The assay utilizes FDA cleared IVD reagents. Performance characteristics have been verified by the [facility] within the [facility]. The [facility] is authorized under the Clinical Laboratory Improvement Amendment of 1988 (CLIA-88) to perform high complexity testing. [facility] BEDSIDE GLUCOSE TESTING Gluc POC Lifscn 128 mg/dL 70 - 99 01/03/2013 HI 4Interpretive Data: Upper Reportable Limit: 200 mg/dL. [facility] BLOOD BANK RESULTS ABO/Rh A POS 12/28/2012 Unknown [facility] BLOOD BANK RESULTS Antibody Scrn Negative (12/28/2012 11:15:00) 12/28/2012 Normal [facility] CHEMISTRY AGAP 12.8 meq/L 10.0 - 20.0 12/28/2012 Normal [facility] CHEMISTRY eGFR 77 mL/min/1.73m2 12/28/2012 NA 5Result Comment: The eGFR is calculated using [...] from the National Kidney Disease Education Program (NKDEP) which additionally recommends that when the eGFR is used in patients with extremes of body mass index for purposes of drug dosing, the eGFR should be multiplied by the estimated BMI. [facility] CHEMISTRY Glucose Lvl 107 mg/dL 70 - 99 12/28/2012 HI 6Interpretive Data: Adult reference range values reflect the clinical guidelines of the [place] [employer]. [facility] [facility] CHEMISTRY Potassium Lvl 4.8 meq/L 3.5 - 5.1 12/28/2012 Normal [facility] CHEMISTRY Chloride Lvl 102 meq/L 95 - 109 12/28/2012 Normal [facility] CHEMISTRY CO2 28 meq/L 24 - 32 12/28/2012 Normal [facility] CHEMISTRY Calcium Lvl 10.0 mg/dL 8.5 - 10.5 12/28/2012 Normal [facility] CHEMISTRY Creatinine Lvl 0.8 mg/dL 0.5 - 1.4 12/28/2012 Normal [facility] CHEMISTRY Sodium Lvl 138 meq/L 135 - 145 12/28/2012 Normal [facility] CHEMISTRY BUN 29 mg/dL 7 - 22 12/28/2012 [facility] CHEMISTRY Magnesium Lvl 1.7 mg/dL 1.8 - 2.4 12/28/2012 LOW [facility] CHEMISTRY Phosphorus 3.5 mg/dL 2.5 - 4.5 12/28/2012 Normal [facility] CHEMISTRY AST 40 unit/L 0 - 37 12/28/2012 [facility] HEMATOLOGY Segs 80.9 % 45.0 - 75.0 12/28/2012 [facility] HEMATOLOGY Segs-Bands # 6.2 K/CMM 1.5 - 8.1 12/28/2012 Normal [facility] HEMATOLOGY Lymphocytes # 1.0 K/CMM 1.0 - 5.5 12/28/2012 Normal [facility] HEMATOLOGY Monocytes # 0.4 K/CMM 0.0 - 0.8 12/28/2012 Normal [facility] HEMATOLOGY Basophils # 0.0 K/CMM 0.0 - 0.2 12/28/2012 Normal [facility] HEMATOLOGY Eosinophils # 0.0 K/CMM 0.0 - 0.5 12/28/2012 Normal [facility] HEMATOLOGY Eosinophils 0.3 % 0.0 - 4.0 12/28/2012 Normal [facility] HEMATOLOGY Basophils 0.3 % 0.0 - 1.0 12/28/2012 Normal [facility] HEMATOLOGY Lymphocytes 13.5 % 20.0 - 40.0 12/28/2012 LOW [facility] HEMATOLOGY Monocytes 5.0 % 2.0 - 12.0 12/28/2012 Normal [facility] HEMATOLOGY PT 13.3 s 12.0 - 14.7 12/28/2012 Normal [facility] HEMATOLOGY INR 0.99 0.85 - 1.17 12/28/2012 Normal 7Interpretive Data: RECOMMENDED RANGES FOR PROTIME INR: 2.0-3.0 for most medical and surgical thromboembolic states. 2.5-3.5 for artificial heart valves and recurrent embolism. INR SHOULD BE USED ONLY FOR PATIENTS ON STABLE ANTICOAGULANT THERAPY. [facility] HEMATOLOGY PTT 27.4 s 22.9 - 35.8 12/28/2012 Normal 8Interpretive Data: Heparin Therapeutic Range: 57 - 92 Seconds [facility] HEMATOLOGY MCH 30.0 pg 27.0 - 31.0 12/28/2012 Normal [facility] HEMATOLOGY RDW 14.1 % 11.5 - 14.5 12/28/2012 Normal [facility] HEMATOLOGY MPV 9.3 fL 7.4 - 10.4 12/28/2012 Normal [facility] HEMATOLOGY Platelet 222 K/CMM 133 - 450 12/28/2012 Normal [facility] HEMATOLOGY MCHC 32.3 g/dL 32.0 - 36.0 12/28/2012 Normal [facility] HEMATOLOGY Hgb 13.0 g/dL 12.0 - 16.0 12/28/2012 Normal [facility] HEMATOLOGY Hct 40.3 % 36.0 - 48.0 12/28/2012 Normal [facility] HEMATOLOGY RBC 4.34 M/CMM 4.20 - 5.40 12/28/2012 Normal [facility] HEMATOLOGY MCV 92.8 fL 81.0 - 99.0 12/28/2012 Normal [facility] HEMATOLOGY WBC 7.7 K/CMM 3.7 - 10.4 12/28/2012 Normal [facility] URINALYSIS UA WBC 0-2 /HPF (12/28/2012 11:15:00) None Seen 12/28/2012 Normal [facility] URINALYSIS UA Bacteria Occasional /HPF (12/28/2012 11:15:00) None Seen 12/28/2012 Normal [facility] URINALYSIS UA RBC None Seen (12/28/2012 11:15:00) 0 - 2 12/28/2012 Normal [facility] URINALYSIS UA Leuk Est Trace *ABN* (12/28/2012 11:15:00) Negative 12/28/2012 ABN [facility] URINALYSIS UA Nitrite Negative (12/28/2012 11:15:00) Negative 12/28/2012 Normal [facility] URINALYSIS UA Glucose Negative (12/28/2012 11:15:00) Negative 12/28/2012 Normal [facility] URINALYSIS UA Urobilinogen 0.2 EU/dL 0.1 - 1.0 12/28/2012 Normal [facility] URINALYSIS UA Bili Negative *NA* (12/28/2012 11:15:00) Negative 12/28/2012 NA [facility] URINALYSIS UA Ketones Negative *NA* (12/28/2012 11:15:00) Negative 12/28/2012 NA [facility] URINALYSIS UA Blood Negative (12/28/2012 11:15:00) Negative 12/28/2012 Normal [facility] URINALYSIS UA Sq Epi Occasional /LPF (12/28/2012 11:15:00) Few 12/28/2012 Normal [facility] URINALYSIS UA Turbidity Clear (12/28/2012 11:15:00) Clear 12/28/2012 Normal [facility] URINALYSIS UA Spec Grav 1.010 <=1.030 12/28/2012 Normal [facility] URINALYSIS UA Color STRAW 12/28/2012 NA [facility] URINALYSIS UA pH 6.0 5.0 - 8.0 12/28/2012 Normal [facility] URINALYSIS UA Protein Negative (12/28/2012 11:15:00) Negative 12/28/2012 Normal [facility] Microbiology Culture: MRSA 12/28/2012 [facility] Microbiology Culture: Urine 12/28/2012 [facility] CHEMISTRY FiO2 Art 21.0 12/28/2012 NA [facility] CHEMISTRY pH Art 7.40 7.35 - 7.45 12/28/2012 Normal [facility] CHEMISTRY BE Art 0 mMol/L -2-2 - 2 12/28/2012 Normal [facility] CHEMISTRY HCO3 Art 25 mMol/L 22 - 26 12/28/2012 Normal [facility] CHEMISTRY pO2 Art 82 mm[Hg] 80 - 100 12/28/2012 Normal [facility] CHEMISTRY pCO2 Art 40 mm[Hg] 35 - 45 12/28/2012 Normal [facility] CHEMISTRY Mode Art Rm Air (12/28/2012 11:10:24) 12/28/2012 Normal [facility] CHEMISTRY Allens Art Positive (12/28/2012 11:10:24) 12/28/2012 Normal [facility] CHEMISTRY Temp Art 37.0 Claudia 12/28/2012 NA [facility] CHEMISTRY Site Art Left Rad (12/28/2012 11:10:24) 12/28/2012 Normal [facility] CHEMISTRY O2 Sat Art 96.0 % 95.0 - 100.0 12/28/2012 Normal [facility] Chest 1view Chest 1view NAME: SARAH BETH GRAHAM : 1945 SEX: F Ordering Physician: Valery Nieves Chest 1view : Dec 28, 2012 12:04:00 PM. CLINICAL INDICATION: Respiratory distress. Comparison Examination: None. FINDINGS: The portable AP chest radiograph shows normal lung volumes without interstitial or airspace opacities, pleural effusions or pneumothorax. 6 mm right mid lung zone calcified granuloma is noted. The heart size and pulmonary vasculature are normal. The trachea is midline. There are no clinically significant osseous abnormalities noted. OPINION: 1. No portable AP chest radiographic evidence of acute cardiopulmonary disease. SL: 23 12/28/2012 - - Read by: Magdaleno Marvin Dictated Date/time: 12/28/12 12:06 Electronically Signed by: Magdaleno Marvin MD 12/28/12 12:06 FINAL REPORT [facility] Vital Signs Vital Sign Value Date Comments Source Diastolic (mm Hg) 60 01/04/2013 [facility] Systolic (mm Hg) 112 01/04/2013 [facility] Respitory Rate 20 01/04/2013 [facility] Diastolic (mm Hg) 40 01/04/2013 [facility] Systolic (mm Hg) 119 01/04/2013 [facility] Respitory Rate 30 01/04/2013 [facility] Diastolic (mm Hg) 40 01/04/2013 [facility] Respitory Rate 22 01/04/2013 [facility] Systolic (mm Hg) 119 01/04/2013 [facility] Temperature Oral (F) 97.4 F 01/04/2013 [facility] Temperature Oral (F) 97.6 F 01/04/2013 [facility] Temperature Oral (F) 97.5 F 01/04/2013 [facility] Weight 73 01/03/2013 [facility] Height 162.56 cm 01/03/2013 [facility] Heart Rate 55 01/03/2013 [facility] Heart Rate 63 01/03/2013 [facility] Heart Rate 65 12/28/2012 [facility] Weight 69.091 12/28/2012 [facility] Height 162.56 cm 12/28/2012 [facility] Encounters Location Location Details Encounter Type Encounter Number Reason For Visit Attending Provider ADM Date DC Date Status Source Not Sent Inpatient [id number] 443.10 VALERY NIEVES 01/03/2013 01/04/2013 Active [facility] [place] [facility] [id number] Leann Sivan 07/03/2014 07/04/2014 [facility] [place] [facility] [id number] Leann Sivan 08/16/2014 08/17/2014 [facility] [place] [facility] [place] [facility] [id number] Leann Finnegan 02/18/2015 02/19/2015 [facility] [place] Procedures Procedure Code Date Perfomer Comments Source Angioplasty of subclavian artery [id number] [facility] Appendectomy [id number] [facility] Arthrectomy [id number] [facility] Bunionectomy [id number] [facility] Cataract [id number] [facility] Femoral-popliteal artery bypass graft<sup>1</sup> [id number] 2012 [facility] [place] History of - hysterectomy [id number] [facility] History of tonsillectomy [id number] [facility] Angioplasty of subclavian artery [id number] [place] Append[facility] [id number] [place] Arthrectomy [id number] [place] Bunionectomy [id number] [place] Cataract [facility] Femoral-popliteal artery bypass graft <sup>1</sup> [id number] 44920 [place] History of - hysterectomy [id number] [place] History of tonsillectomy [id number] [facility]
--- OUTSIDE RECORDS SUMMARY | 2018-10-02 10:38 | XMS REPORT | Summary of Care ---
Author Author [facility] [place] Organization [facility] [place] Address Unknown Phone Unavailable Encounter HQ Brody_clay(FIN) [id number] Date(s): 02/18/15 - 02/18/15 [facility] [place] [address] [id number] [phone] Discharge Disposition: Home Attending Physician: Leann Finnegan MD Vital Signs No data [...] No data available for this section Procedures Procedure Date Related Diagnosis Body Site Angioplasty of subclavian artery Appendectomy Arthrectomy Bunionectomy Cataract Femoral-popliteal artery bypass graft1 History of - hysterectomy History of tonsillectomy 95887 Social History Social History Type Response Assessment and Plan No data available for this section
[2018-10-02] MEDS ORDERED: MORPHINE SULFATE INJ 4 MG/ML INJ 1ML IV NR ×3 (11:01→15:45)
[2018-10-02] MEDS ORDERED: SODIUM CHLORIDE 0.9% 1000ML 1,000 ML IV STA (11:01)
[2018-10-02] MEDS ORDERED: ONDANSETRON HCL INJ 2MG/ML 2ML 2 MG/ML VIAL IV NR (11:01)
--- NOTE | 2018-10-02 11:55 | Diagnostic Imaging Report ---
A single frontal view of the chest. HISTORY: Abdominal pain COMPARISON: None available. DISCUSSION: Portable technique, limits sensitivity of the exam. Soft tissue attenuation partially limits sensitivity of the exam. Tubes/Lines: None Lungs and pleura: Low lung volumes result in bibasilar vascular crowding, accentuation of the pulmonary interstitial markings, central pulmonary vasculature, and the cardiac silhouette. Allowing for these limitations, the findings are as follows: No evidence of a consolidative pneumonia or pulmonary alveolar edema. No definite pleural effusion or pneumothorax is identified. Heart and mediastinum: The cardiomediastinal silhouette appears unremarkable. Bones and soft tissues: Appear unremarkable, given this limited exam. IMPRESSION: No acute radiographic abnormality. Signed by: Dr. Sergio Zamudio D.O., M.M.M. on 10/02/2018 11:51 AM
[2018-10-02 12:24] LABS: BASOPHILS % 0.4 % (0.0-1.0); EOSINOPHILS # (AUTO) 0.2 (0.0-0.4); EOSINOPHILS % 1.6 % (0.0-6.0); HEMATOCRIT 34.9 % (34.2-44.1); HEMOGLOBIN 10.9 g/dL (12.0-16.0); LYMPHOCYTES # (AUTO) 0.9 (1.0-3.2); LYMPHOCYTES % 9.3 % (18.0-39.1); MEAN CORPUSCULAR HEMOGLOBIN 26.8 pg (28-32); MEAN CORPUSCULAR HGB CONC 31.2 g/dL (31-35); MEAN CORPUSCULAR VOLUME 85.7 fL (81-99); MONOCYTES # (AUTO) 0.8 (0.2-0.8); MONOCYTES % 8.1 % (4.4-11.3); NEUTROPHILS # (AUTO) 7.6 (2.1-6.9); NEUTROPHILS % 80.4 % (38.7-80.0); PLATELET COUNT 237 x10e3/uL (140-360); RED BLOOD COUNT 4.07 x10e6/uL (3.6-5.1); RED CELL DISTRIBUTION WIDTH 15.6 % (11.7-14.4)
[2018-10-02 12:26] LABS: ALANINE AMINOTRANSFERASE 13 IU/L (0-55); ALKALINE PHOSPHATASE 64 IU/L (40-150); ANION GAP 13.1 mmol/L (8-16); BLOOD UREA NITROGEN 23 mg/dL (7-26); CALCIUM 9.8 mg/dL (8.4-10.2); CARBON DIOXIDE 25 mmol/L (22-29); CHLORIDE 102 mmol/L (98-107); CREATINE KINASE 71 IU/L (29-168); GLUCOSE 127 mg/dL (74-118); LIPASE 33 U/L (8-78); MAGNESIUM 1.7 MG/DL (1.3-2.1); POTASSIUM 4.1 mmol/L (3.5-5.1); SODIUM 136 mmol/L (136-145)
[2018-10-02 12:27] LABS: INR 0.93; PARTIAL THROMBOPLASTIN TIME 28.1 seconds (23.8-35.5)
[2018-10-02 12:45] LABS: ALBUMIN/GLOBULIN RATIO 1.4 (0.8-2.0); BUN/CREATININE RATIO 31 (6-25); CREATININE, SERUM 0.71 mg/dL (0.57-1.11); EST GLOMERULAR FILTRATION RATE > 60 ML/MIN (60-)
[2018-10-02 12:59] LABS: B-TYPE NATRIURETIC PEPTIDE2 103.7 pg/mL (0-100)
[2018-10-02] MEDS ORDERED: DIATRIZOATE MEGL/DIATRIZOA SOD 30 ML BTL PO ONE (13:37)
[2018-10-02] MEDS ORDERED: CATAPRES-TTS 11 EACH TD (13:44)
[2018-10-02] MEDS ORDERED: COREG CR10 MG PO (13:44)
[2018-10-02] MEDS ORDERED: PANTOPRAZOLE SO40 MG PO (13:44)
[2018-10-02] MEDS ORDERED: SODIUM CHLORIDE 0.9% 50ML 50 ML ONE (15:55)
[2018-10-02] MEDS ORDERED: IOPAMIDOL 370 MG/ML 200 ML INFUS..BTL INJ ONE (15:55)
--- NOTE | 2018-10-02 16:10 | Diagnostic Imaging Report ---
EXAM: CT of the abdomen and pelvis WITH contrast HISTORY: lower abdominal pain, left-sided, history of diverticulitis, history of appendectomy and hysterectomy COMPARISON: Images from CT of the abdomen and pelvis February 13, 2017. TECHNIQUE: The abdomen and pelvis were scanned utilizing a multidetector helical scanner. Coronal and sagittal reformats are provided. PROTOCOL: Routine IV CONTRAST: 100 cc of Isovue-370. ORAL CONTRAST: Dilute Gastrografin RADIATION DOSE: Total DLP: 341.25 mGy*cm Estimated effective dose: (DLP x 0.015 x size factor) Dose modulation, iterative reconstruction, and/or weight based adjustment of the mA/kV was utilized to reduce the radiation dose to as low as reasonably achievable. COMPLICATIONS: None FINDINGS: LOWER THORAX: Unremarkable. HEPATOBILIARY: No mass. No biliary dilation. No calcified gallstone. Diffusely decreased attenuation of the liver. SPLEEN: No splenomegaly. PANCREAS: No focal masses or ductal dilatation. ADRENALS: No discrete adrenal nodule. KIDNEYS/URETERS: Right: * Slightly increased size of the nonobstructing interpolar stone, now 4.4 mm. Left: * One of the interpolar stones is not visible within the kidney, there is a 6 mm calcification near the left ureterovesicular junction with associated mild distention of the ureter, but no hydronephrosis. * Additional 5 mm calcification near the inferior pole and adjacent punctate calcification. * Moderate perinephric fat stranding. * A 7 mm interpolar hypodensity, statistically most likely a small cyst. PELVIC ORGANS/BLADDER: Unchanged 2 mm calcification adjacent to the base of the urinary bladder, which may be a small incidental calcification within a ureterocele. GI TRACT: No dilation or wall thickening identified. Minimal scattered colonic diverticuli. PERITONEUM / RETROPERITONEUM: No free air or fluid. LYMPH NODES: No pathologically enlarged lymph node. VESSELS: Diffuse scattered atherosclerotic vascular calcifications. Bilateral aortofemoral bypass. BONES: Multilevel degenerative changes, most notably severe hypertrophic facet arthrosis. Stable mild anterior wedge compression deformity of T12. SOFT TISSUES: Unremarkable. IMPRESSION: 1. A 6 mm stone near the left ureterovesicular junction resulting in mild distention of the left ureter and perinephric fat stranding, but no hydronephrosis. 2. A 4 mm right renal stone and 2 additional stones in the left kidney measuring up to 5 mm. 3. Hepatic steatosis. 4. Minimal colonic diverticulosis, without acute diverticulitis. Signed by: Dr. Sergio Zamudio D.O., M.M.M. on 10/02/2018 4:07 PM
[2018-10-02] MEDS ORDERED: ZOFRAN4 MG SL (16:27)
[2018-10-02] MEDS ORDERED: TYLENOL WITH C1 EACH PO (16:27)
[2018-10-02 17:13] LABS: CLARITY,URINE CLEAR (CLEAR); COLOR,URINE YELLOW (YELLOW); LEUKOCYTE ESTERASE ,URINE NEGATIVE (NEGATIVE); NITRITE,URINE NEGATIVE (NEGATIVE); PROTEIN,URINE DIPSTICK NEGATIVE (NEGATIVE)
[2018-10-02 17:14] LABS: BILIRUBIN,URINE NEGATIVE (NEGATIVE); KETONES,URINE NEGATIVE (NEGATIVE); URINE UROBILINOGEN 0.2 mg/dL (0.2 - 1); WBC,URINE (MAN) 0-5 /HPF (0-5)
[2018-10-02 17:15] LABS: BACTERIA,URINE RARE /HPF; EPITHELIAL CELLS,URINE RARE /LPF
[2018-10-02] MEDS ORDERED: MORPHINE SULFATE INJ 4 MG/ML INJ 1ML IV PRN (19:30)
[2018-10-02] MEDS ORDERED: ONDANSETRON HCL INJ 2MG/ML 2ML 2 MG/ML VIAL IV PRN (19:45)
--- OUTSIDE RECORDS SUMMARY | 2018-10-02 19:52 | XMS REPORT ---
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 Allergies, Adverse Reactions, Alerts This patient has no known allergies or adverse reactions. Medications This patient has no known medications. Results Test Description Test Time Test Comments Text Results Atomic Results Result Comments CT ABDOMEN/PELVIS W 2018-10-02 15:51:00 [place] [address] Patient Name: SARAH BETH GRAHAM MR #: [id number] : 1945 Age/Sex: 73/F Req #: [id number] Adm Physician: Ordered by: KRISTA JORGE MIRROR POLISHER Report #: [id number] Location: ER Room/Bed: Procedure: [id number] CT/CT ABDOMEN/PELVIS W Exam Date: 10/02/18 Exam Time: 1517 REPORT STATUS: Signed EXAM: CT of the abdomen and pelvis WITH contrast HISTORY: lower abdominal pain, left-sided, history of diverticulitis, history of appendectomy and hysterectomy COMPARISON: Images from CT of the abdomen and pelvis February 13, 2017. TECHNIQUE: The abdomen and pelvis were scanned utilizing a multidetector helical scanner. Coronal and sagittal reformats are provided. PROTOCOL: Routine IV CONTRAST: 100 cc of Isovue-370. ORAL CONTRAST: Dilute Gastrografin RADIATION DOSE: Total DLP: 341.25 mGy*cm Estimated effective dose: (DLP x 0.015 x size factor) Dose modulation, iterative reconstruction, and/or weight based adjustment of the mA/kV was utilized to reduce the radiation dose to as low as reasonably achievable. COMPLICATIONS: None FINDINGS: LOWER THORAX: Unremarkable. HEPATOBILIARY: No mass. No biliary dilation. No calcified gallstone. Diffusely decreased attenuation of the liver. SPLEEN: No splenomegaly. PANCREAS: No focal masses or ductal dilatation. ADRENALS: No discrete adrenal nodule. KIDNEYS/URETERS: Right: * Slightly increased size of the nonobstructing interpolar stone, now 4.4 mm. Left: * One of the interpolar stones is not visible within the kidney, there is a 6 mm calcification near the left ureterovesicular junction with associated mild distention of the ureter, but no hydronephrosis. * Additional 5 mm calcification near the inferior pole and adjacent punctate calcification. * Moderate perinephric fat stranding. * A 7 mm interpolar hypodensity, statistically most likely a small cyst. PELVIC ORGANS/BLADDER: Unchanged 2 mm calcification adjacent to the base of the urinary bladder, which may be a small incidental calcification within a ureterocele. GI TRACT: No dilation or wall thickening identified. Minimal scattered colonic diverticuli. PERITONEUM / RETROPERITONEUM: No free air or fluid. LYMPH NODES: No pathologically enlarged lymph node. VESSELS: Diffuse scattered atherosclerotic vascular calcifications. Bilateral aortofemoral bypass. BONES: Multilevel degenerative changes, most notably severe hypertrophic facet arthrosis. Stable mild anterior wedge compression deformity of T12. SOFT TISSUES: Unremarkable. IMPRESSION: 1. A 6 mm stone near the left ureterovesicular junction resulting in mild distention of the left ureter and perinephric fat stranding, but no hydronephrosis. 2. A 4 mm right renal stone and 2 additional stones in the left kidney measuring up to 5 mm. 3. Hepatic steatosis. 4. Minimal colonic diverticulosis, without acute diverticulitis. Signed by: Trinh Joyner.O., M.M.M. on 10/02/2018 4:07 PM Dictated By: MULU BATRES DO 1804 Transcribed By: EDUAR on 10/02/18 2287 COPY TO: JORGE,KRISTA L MIRROR POLISHER CHEST SINGLE (PORTABLE) 2018-10-02 11:51:00 [place] [address] Patient Name: SARAH BETH GRAHAM MR #: [id number] : 1945 Age/Sex: 73/F Req #: [id number] Adm Physician: Ordered by: KRISTA JORGE NP Report #: [id number] Location: ER Room/Bed: Procedure: [id number] DX/CHEST SINGLE (PORTABLE) Exam Date: 10/02/18 Exam Time: 1120 REPORT STATUS: Signed A single frontal view of the chest. HISTORY: Abdominal pain COMPARISON: None available. DISCUSSION: Portable technique, limits sensitivity of the exam. Soft tissue attenuation partially limits sensitivity of the exam. Tubes/Lines: None Lungs and pleura: Low lung volumes result in bibasilar vascular crowding, accentuation of the pulmonary interstitial markings, central pulmonary vasculature, and the cardiac silhouette. Allowing for these limitations, the findings are as follows: No evidence of a consolidative pneumonia or pulmonary alveolar edema. No definite pleural effusion or pneumothorax is identified. Heart and mediastinum: The cardiomediastinal silhouette appears unremarkable. Bones and soft tissues: Appear unremarkable, given this limited exam. IMPRESSION: No acute radiographic abnormality. Signed by: Herb JoynerO., M.M.M. on 10/02/2018 11:51 AM Dictated By: MULU BATRES DO 1151 Tr anscribed By: EDUAR on 10/02/18 1151 COPY TO: KRISTA JORGE MIRROR POLISHER CT ABDOMEN/PELVIS WO [address], [place], [place] [address] Patient Name: SARAH BETH GRAHAM MR #: [id number] : 1945 Age/[facility]: 72[id number] #: [id number] Adm Physician: Ordered by: BERRY PEREZ MD Report #: [id number] Location: ER Room/Bed: Procedure: [id number] CT/CT ABDOMEN/PELVIS WO Exam Date: 04/15/17 Exam Time: 1043 REPORT STATUS: Signed PROCEDURE: CT ABDOMEN AND PELVIS WITHOUT CONTRAST COMPARISON: None. INDICATIONS: STONE PROTOCOL TECHNIQUE: Axial CT images through the abdomen and pelvis were obtained without contrast, using kidney stone protocol. Suboptimal visualization of solid organs and vessels without contrast. Coronal and sagittal reformations were created. Total exam DLP: 345.84 mGy- cm FINDINGS: Right kidney: No hydronephrosis or contour deforming mass. There is a 7 mm nonobstructing intrarenal calculus at the midportion of the collecting system. Left kidney: There is mild fullness of left renal collecting system. There are multiple nonobstructing intrarenal calculi on the left measuring 2-3 mm in the upper pole collecting system and two 7 mm calculi in the lower pole collecting system. Bladder/ureters: The urinary bladder appears unremarkable. There is a 3 mm calcification at the bladder base near the midline which could represent a recently passed calculus. No ureteral calculus is seen. Liver: No mass or intrahepatic bile duct dilatation. Spleen: No splenomegaly. Biliary: No cholelithiasis or gallbladder wall thickening. Pancreas: No mass, duct dilatation or peripancreatic inflammatory stranding. Adrenal Glands: No nodules. Vasculature: The abdominal aorta is atherosclerotic with scattered calcified plaque. There is an aorto bifemoral graft. [place] aortic bifurcation is densely calcified. Unenhanced IVC unremarkable. GI: No bowel dilatation or wall thickening. There is sigmoid diverticulosis with no CT evidence for acute diverticulitis. Peritoneum/Retroperitoneum: No pneumoperitoneum or ascites. No dominant mesenteric or para-aortic adenopathy. There are surgical clips in the right lower quadrant. Reproductive organs: No discrete abnormal mass or fluid collection in the pelvis. The uterus is not visualized. MSK: No acute or suspicious bony lesions. There is extensive degenerative change in the lumbar spine with disc space narrowing at each level. There is age indeterminate 30% compression of T12. The bones appear demineralized. Superficial surrounding soft tissue unremarkable. Lung bases: Lung bases clear. Heart size normal. CONCLUSION: 1. There are bilateral nonobstructing intrarenal calculi. There is a 7 mm calculus in the right kidney and there are multiple calculi in the left kidney measuring up to 7 mm. 2. There is mild fullness of the left renal collecting system. There is no ureteral calculus. There is a 3 mm calcification at the bladder base near the midline. It is difficult to determine if this is within the bladder lumen or may represent an adjacent phlebolith, but in the proper clinical setting, a recently passed calculus is a possibility. 3. Sigmoid diverticulosis with no CT evidence for acute diverticulitis. Dictated by: Nicho Cade M.D. on 04/15/2017 at 11:59 Electronically approved by: Nicho Cade M.D. on 04/15/2017 at 11:59 Dictated By: NICHO CADE MD [id number] Transcribed By: ROB on 04/15/17 1155 COPY TO: BERRY PEREZ MD
[2018-10-02 20:00] VITALS: BP 134/65
[2018-10-02] MEDS: CEFTRIAXONE SOD 1 GM/NS 50 ML 50 ML IV SCH (20:19)
--- NOTE | 2018-10-02 20:48 | NUR ---
received patient aaox3, amb steady gait. skin intact. breathing even and unlabored. denies pain at this time. iv to right ac 20g. updated patient to plan of care, informed of NPO status after midnight. instructed to call for assistance as needed, patient verbalized understanding. bed locked and in lowest position, call light within easy reach, belongings within reach. will continue to monitor patient closely. per ER stat consult to Dr. Saba already called.
[2018-10-02 22:12] VITALS: BP 134/65
[2018-10-02 22:21] VITALS: BP 134/65
[2018-10-02] MEDS ORDERED: AVALIDE 300-121 EACH PO (22:53)
[2018-10-03] VITALS (8 sets, daily range): BP systolic 107–136; BP diastolic 46–59
--- NOTE | 2018-10-03 06:49 | Diagnostic Imaging Report ---
Exam: Abdominal film Clinical History: Abdominal pain Comparison: CT October 02, 2018 DISCUSSION: 7 mm calculus at the left lower pelvis in the location of the prior stone. Additional renal calculi. Scattered pelvic phleboliths. Contrast within the colon IMPRESSION: Stable left pelvic calculus Signed by: Dr. Enio Street M.D. on 10/03/2018 6:46 AM
[2018-10-03] MEDS ORDERED: METOPROLOL SUCCINATE 25 MG TAB XL PO SCH (09:00)
[2018-10-03] MEDS: AMLODIPINE BESYLATE 5 MG TAB PO SCH (09:00)
[2018-10-03] MEDS: D5.45%NS/KCL 20MEQ 1,000 ML IV SCH ×2 (09:15→20:39)
[2018-10-03] MEDS: CEFTRIAXONE SOD 1 GM/NS 50 ML 50 ML IV SCH ×2 (09:15→19:30)
[2018-10-03] MEDS ORDERED: ACETAMINOPHEN/CODEINE 300MG - 30MG TAB PO PRN ×2 (09:30→15:00)
[2018-10-03] MEDS ORDERED: NON-FORMULARY MEDICATION (Clonidine (Catapres-Tts 1) 1 EACH) TD SCH (09:30)
--- NOTE | 2018-10-03 12:05 | Consultation ---
DATE OF CONSULTATION: 10/03/2018 Urology Consultation. REASON FOR CONSULTATION: Renal colic and urolithiasis. HISTORY OF PRESENT ILLNESS: Ping Lockhart is a 73-year-old woman who had a previous history of kidney stones in the remote past. She underwent what sounds like lithotripsy and her urologist at that time did not insist on urological followup due to the fact that her symptomatology resolved. The patient had severe left-sided flank pain radiating to the left lower quadrant, reported to the emergency room, and she was admitted for an obstructing 6 mm stone. The patient was told she had additional stones beyond that. She denies any hematuria and she denies any dysuria. She reports having both stress and urge type urinary incontinence. She denies any urinary tract infections and denies any recent encounter with any urologist. She does not recall the name of her prior urologist. PAST MEDICAL AND SURGICAL HISTORY: 1. Status post tonsillectomy. 2. Status post appendectomy. 3. Status post total abdominal hysterectomy. 4. 2, para 2, by vaginal delivery. 5. Status post aortofemoral bypass. 6. Status post left carotid endarterectomy. 7. 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 8. Hypertension. 9. Hypercholesterolemia. SOCIAL HISTORY: The patient denies ethanol or drug use. She reports smoking occasionally, which is down from being a regular smoker. 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 FAMILY HISTORY: Noncontributory to the active urological problems. CURRENT MEDICATIONS: Please refer to the MAR. ALLERGIES: NONE KNOWN. REVIEW OF SYSTEMS: Discussed as above in the history of present illness. PAST MEDICAL HISTORY: Otherwise negative for all systems. PHYSICAL EXAMINATION: GENERAL: Very pleasant 73-year-old woman lying in bed, in no apparent distress. She is currently afebrile. VITAL SIGNS: Currently stable. ABDOMEN: Soft, nondistended, nontender without costovertebral angle tenderness. Kidneys not palpable without hepatosplenomegaly. No obvious evidence of hernia. For the remaining physical examination systems, please refer to the admission history and physical as well as the ERT sheet. LABORATORY STUDIES: Cultures are pending. White blood cell count is 9480, hemoglobin is low at 10.9, platelets are normal at 237,000. The patient's creatinine is normal at 0.71. Her calcium is normal at 9.8. Urinalysis significant for 11-20 RBCs. No sign of urinary tract infection. CT scan of the abdomen and pelvis revealed a 5 mm calcification in the inferior pole and adjacent punctate calcification in the left kidney. There is a 6 mm stone in the left ureterovesical junction with associated hydroureteronephrosis. There is also what most likely is a 7 mm left-sided renal cyst. There is also a 4.4 mm right-sided stone, which apparently has grown from prior evaluation. KUB is consistent with stone still present in the left pelvis and it is measured at 7 mm. ASSESSMENT: 1. Left renal colic. 2. Left ureteral stone. 3. Bilateral renal stones. 4. Mixed type urinary incontinence. 5. Anemia. 6. Microscopic hematuria. 7. Left renal cyst. PLAN: We will proceed with stone passage trial. If the patient fails to pass her stone, then we will plan to go to the operating room for ureteroscopy, laser stent placement, etc. Ongoing urological followup is a must in this recurrent stone former. Thank you much for involving us in care of your patient. We will be happy to follow her along with you as well as an outpatient. MD FER Bedoya/PREMA /[id number] cc: Leann Finnegan
[2018-10-03] MEDS ORDERED: CARVEDILOL 10 MG CAPCR PO SCH (17:00)
[2018-10-03] MEDS: CARVEDILOL 12.5 MG TAB PO SCH (17:00)
[2018-10-03] MEDS: ATORVASTATIN 10 MG TAB PO SCH (20:40)
[2018-10-04] VITALS (7 sets, daily range): BP systolic 105–135; BP diastolic 46–61
[2018-10-04] MEDS: LEVOTHYROXINE SODIUM 50 MCG TAB PO SCH (05:23)
[2018-10-04] MEDS: D5.45%NS/KCL 20MEQ 1,000 ML IV SCH ×3 (05:23→21:45)
--- NOTE | 2018-10-04 06:17 | Diagnostic Imaging Report ---
EXAM: Abdomen 1 Views INDICATION: ^FOLLOW STONE COMPARISON: KUB 10/03/2018. CT abdomen and pelvis 10/02/2018. FINDINGS: Moderate amount of stool in the colon. Positive oral contrast is in the colon. No dilated loops of small bowel. Bilateral nonobstructing renal stones 7 mm stone in the left lower pelvis, now slightly more medial, likely represents passage of into the bladder. No abnormal soft tissue masses. Severe degenerative changes in the lumbar spine and pelvis. IMPRESSION: 1. Passage of the 7 mm left ureter stone into the bladder. 2. Bilateral nonobstructing renal stones. Signed by: Dr. Jeff Hreedia M.D. on 10/04/2018 6:13 AM
[2018-10-04] MEDS ORDERED: ONDANSETRON HCL 4 MG ORAL DISINTEGRATING TAB PO PRN (07:00)
[2018-10-04] MEDS ORDERED: CYANOCOBALAMIN 1000 MG PO SCH (09:00)
[2018-10-04] MEDS ORDERED: HYDROCHLOROTHIAZIDE PO SCH (09:00)
[2018-10-04] MEDS ORDERED: IRBESARTAN PO SCH (09:00)
[2018-10-04] MEDS ORDERED: [UNRECOGNIZED DRUG - OTHER] PO SCH (09:00)
[2018-10-04] MEDS: HYDROCHLOROTHIAZIDE 25 MG TAB PO SCH (09:05)
[2018-10-04] MEDS: IRBESARTAN 150 MG TAB PO SCH (09:05)
[2018-10-04] MEDS: ASPIRIN 81 MG CHEW TAB PO SCH (09:05)
[2018-10-04] MEDS: AMLODIPINE BESYLATE 5 MG TAB PO SCH (09:06)
[2018-10-04] MEDS: FENOFIBRATE 145 MG TAB PO SCH (09:06)
[2018-10-04] MEDS: CARVEDILOL 12.5 MG TAB PO SCH ×2 (09:06→18:50)
[2018-10-04] MEDS: PANTOPRAZOLE SOD 40 MG TABEC PO SCH (09:06)
[2018-10-04] MEDS: CYANOCOBALAMIN 1,000 MCG TAB PO SCH (09:06)
[2018-10-04] MEDS: CHOLECALCIFEROL 1,000 UNIT TAB PO SCH (09:06)
[2018-10-04] MEDS: EZETIMIBE 10 MG TAB PO SCH (09:06)
[2018-10-04] MEDS: AMPICILLIN SOD 1 GM/NS 50ML 1 G in AMPICILLIN SOD 1 GM/NS 50ML 50 ML IV SCH ×2 (14:02→21:44)
[2018-10-04] MEDS: ATORVASTATIN 10 MG TAB PO SCH (21:45)
[2018-10-05] VITALS: BP 122/58
[2018-10-05 04:00] VITALS: BP 118/53
[2018-10-05] MEDS: LEVOTHYROXINE SODIUM 50 MCG TAB PO SCH (04:57)
[2018-10-05] MEDS: AMPICILLIN SOD 1 GM/NS 50ML 1 G in AMPICILLIN SOD 1 GM/NS 50ML 50 ML IV SCH ×2 (04:57→15:04)
--- NOTE | 2018-10-05 07:22 | NUR ---
Received patient in report this morning. Patient is resting in bed. No S&S of distress noted.
[2018-10-05 07:51] VITALS: BP 144/62
--- NOTE | 2018-10-05 09:07 | NUR ---
Patient went to CT at this time.
[2018-10-05] MEDS: D5.45%NS/KCL 20MEQ 1,000 ML IV SCH (09:16)
[2018-10-05] MEDS: HYDROCHLOROTHIAZIDE 25 MG TAB PO SCH (09:44)
[2018-10-05] MEDS: ASPIRIN 81 MG CHEW TAB PO SCH (09:44)
[2018-10-05] MEDS: IRBESARTAN 150 MG TAB PO SCH (09:44)
[2018-10-05] MEDS: CHOLECALCIFEROL 1,000 UNIT TAB PO SCH (09:45)
[2018-10-05] MEDS: PANTOPRAZOLE SOD 40 MG TABEC PO SCH (09:45)
[2018-10-05] MEDS: EZETIMIBE 10 MG TAB PO SCH (09:45)
[2018-10-05] MEDS: CYANOCOBALAMIN 1,000 MCG TAB PO SCH (09:45)
[2018-10-05] MEDS: CARVEDILOL 12.5 MG TAB PO SCH (09:45)
[2018-10-05] MEDS: FENOFIBRATE 145 MG TAB PO SCH (09:45)
[2018-10-05] MEDS: AMLODIPINE BESYLATE 5 MG TAB PO SCH (09:45)
--- NOTE | 2018-10-05 10:35 | Diagnostic Imaging Report ---
EXAMINATION: CT of the abdomen and pelvis without contrast. TECHNIQUE: Spiral CT images of the abdomen and pelvis were performed from the lung bases to the lesser trochanters. No intravenous contrast was given per renal stone protocol. Coronal and sagittal reformatted images were obtained. COMPARISON: CT abdomen and pelvis with contrast 10/02/2018 CLINICAL HISTORY:Follow-up calculi and hydronephrosis DISCUSSION: ABSENCE OF INTRAVENOUS CONTRAST DECREASES SENSITIVITY FOR DETECTION OF FOCAL LESIONS AND VASCULAR PATHOLOGY. ABDOMEN/PELVIS: LOWER THORAX: Unremarkable. HEPATOBILIARY:No focal hepatic lesion or intrahepatic biliary ductal dilatation. Hepatic parenchyma is again hypoattenuating compatible with steatosis. Vicariously excreted contrast material partially opacifies the gallbladder. No wall thickening. SPLEEN: No splenomegaly. PANCREAS: No focal masses or ductal dilatation. ADRENALS: No adrenal nodules. KIDNEYS/URETERS: Left hydroureteronephrosis has resolved. 6-7 mm calculus has migrated from the ureterovesical junction into the urinary bladder as seen on series 3 image 150. Nonobstructing 5 and 2 mm calculi in the left lower pole, as well as punctate right lower pole and 4-5 mm right interpolar nonobstructing calculi are unchanged. No right hydronephrosis. Left interpolar hypodensity described on the comparison study is poorly visualized on this unenhanced examination. PELVIC ORGANS/BLADDER: Calculus within the dependent urinary bladder as above. 2-3 mm calculus in the region of the bladder base may also lie within the urinary bladder. The uterus is not identified and has presumably been resected. PERITONEUM/RETROPERITONEUM: No ascites. No pneumoperitoneum. LYMPH NODES: No pelvic sidewall, retroperitoneal, or mesenteric lymphadenopathy. Unchanged mildly prominent juan antonio hepatis and portacaval lymph nodes. VESSELS: Limited evaluation without intravenous contrast. Status post aortobifemoral bypass. Extensive atherosclerotic calcification of the [place] abdominopelvic arteries. GI TRACT: Multiple diverticula along the course of the sigmoid colon without wall thickening or adjacent inflammatory change. The appendix is not identified and has presumably been removed. The stomach is collapsed with prominent rugal folds. No small bowel dilatation to suggest obstruction. BONES AND SOFT TISSUES: No osseous destructive lesions. Degenerative disc changes and facet arthropathy of the lumbar spine. Stable mild anterior wedge deformity of T12. No focal soft tissue abnormalities. IMPRESSION: Interval passage of the previously described 6-7 mm left ureterovesical junction calculus into the urinary bladder, with resolution of ureteral dilatation and improved perinephric inflammation. Additional nonobstructing calculi, stable as described above. Signed by: Dr. Luther Aragon M.D. on 10/05/2018 10:32 AM
[2018-10-05 11:54] VITALS: BP 144/62
[2018-10-05 11:55] VITALS: BP 125/58
--- NOTE | 2018-10-05 12:04 | NUR ---
Patient went to OR at this time
[2018-10-05] MEDS ORDERED: BELLADONNA/OPIUM 60 MG SUPP PR ONE (12:24)
[2018-10-05] MEDS ORDERED: IOPAMIDOL 610MG/1ML 300 MG/ML VIAL IV ONE (12:24)
--- NOTE | 2018-10-05 14:00 | NUR ---
Patient resting in bed at this time. Reports some discomfort and burning on urination, but relief at having the stone out. Lung sounds clear. Bowel sounds active. No edema noted. Skin intact. Bed locked in lowest position. Call light in reach. Lunch tolerated well.
[2018-10-05 15:50] VITALS: BP 116/49
[2018-10-05] MEDS ORDERED: TYLENOL WITH C1 EACH PO (16:48)
[2018-10-05] MEDS ORDERED: DITROPAN XL5 MG PO (16:48)
[2018-10-05] MEDS ORDERED: SEVOFLURANE INHAL SOLN 250 ML PEN BTL ONE (17:59)
[2018-10-05] MEDS ORDERED: LIDOCAINE HCL 2% LOCAL INJ 5 ML SDV VIAL INJ ONE (17:59)
[2018-10-05] MEDS ORDERED: PROPOFOL IV EMULSION 10 MG/ML 20 ML VIAL ONE (17:59)
[2018-10-05] MEDS ORDERED: PHENAZOPYRIDINE HCL 100 MG TAB PO SCH (18:00)
--- NOTE | 2018-10-05 18:30 | NUR ---
R AC 20g IV removed at this time. Catheter tip intact. Pressure dressing applied.
--- NOTE | 2018-10-05 18:50 | NUR ---
Patient discharged at this time. Assisted by staff via wheelchair to car. Continue home meds. Explained new medications, no questions reported. Follow up with PCP and Dr Saba in 3 weeks. Activity as tolerated. Education on hematuria and kidney stones given.
--- NOTE | 2018-10-06 04:38 | Discharge Summary ---
DISCHARGE DIAGNOSES: 1. Left urolithiasis. 2. Hypertension, controlled. 3. History of coronary artery disease and atherosclerotic heart disease. She is status post recent percutaneous coronary intervention. 4. Hypercholesterolemia. HOSPITAL COURSE: Ms. Lockhart is a pleasant 73 years old lady, patient of Dr. Leann Finnegan, who has past medical history significant for prior episode of urolithiasis, history of coronary artery disease, atherosclerotic heart disease, status post recent PCI procedure. She presented to the hospital after she experienced the sudden onset of left flank pain, which was unrelenting. She became nauseated and decided to come the emergency department for evaluation. She was found on CT scan to have a distal left UV junction stone, that was 6 mm in size and two smaller stones in the same kidney. She was admitted and she was treated with IV fluids. A consultation with a urology was requested. She was seen by Dr. Saba who oversaw the urological management of her urolithiasis. Serial KUB have shown migration of the stone into the bladder and she was taken to the OR for cystoscopy and retrieval of the stone. She had improvement of her symptoms. She is being discharged home in stable conditions. Prescriptions were given for pain medication and antibiotic. She is to follow up with her primary care physician with Dr. Saba. MD ALONDRA Wesley/PREMA /[id number] MILLY
[2018-10-06] MEDS ORDERED: CLONIDINE HCL 0.1 MG/24 HR 1 EA PATCH TOP SCH (10:00)
--- NOTE | 2018-11-03 03:56 | Operative Report ---
DATE OF PROCEDURE: 10/05/2018 SURGEON: Hnog Saba MD PREOPERATIVE DIAGNOSES: 1. Left ureterolithiasis. 2. Left hydronephrosis due to stone. POSTOPERATIVE DIAGNOSES: 1. Left ureterolithiasis. 2. Left hydronephrosis due to stone. 3. Grade 2 cystocele. 4. Grade 2 rectocele. 5. Atrophic (senile) vaginitis. OPERATION PERFORMED: 1. Cystourethroscopy with bilateral ureteral catheterization and retrograde ureteropyelography. 2. Cystourethroscopy with manipulation and extraction of left ureteral stone (separately performed for the diagnosis of the stone). 3. Radiological services with supervision and interpretation of stone manipulation. 4. Cystourethroscopy and insertion of left indwelling ureteral stent (separately performed to relieve the hydronephrosis). 5. Interpretation of retrograde ureteropyelography. 6. Pelvic examination under anesthesia. ANESTHESIA: General. COMPLICATIONS: None. CLINICAL SUMMARY: Ping Lockhart is a 73-year-old woman, who failed to pass her stone. She has persistent symptomatology. She elected to proceed with surgical intervention. She is aware of the risks of bleeding, infection, injury to adjacent structures, need for additional procedures and elected to proceed. OPERATIVE PROCEDURE IN DETAIL: Informed consent was verified. Ping Lockhart was properly identified, taken to the operating room, placed on the cystoscopy table in supine position. Anesthesia was uneventfully begun. The patient was then carefully gently repositioned in dorsal lithotomy position with all pressure points well padded. Her genitalia was prepared and draped in usual sterile fashion. The cystoscope sheath was inserted in the patient's urethra and bladder was drained. Panendoscopy revealed no suspicious mucosal lesions, no tumors, no diverticula. There was an inflamed left ureteral orifice and in this left ureteral orifice was a stone that was stuck. We cannulated the right ureter and retrograde ureteropyelography was performed. We then utilized a grasping forceps to grasp the tip of the stone and it was manipulated loose and we were able to extract it. Fluoroscopically, there did not seem to be a more proximal stone. We cannulated the left ureter and retrograde ureteropyelography was performed. Guidewire was then placed. With cystoscopic and fluoroscopic guidance, a left-sided indwelling ureteral stent was then placed. It was coiled in the patient's kidney as well as the patient's bladder. The retaining suture was cut short. Interpretation of retrograde ureteropyelography: Contrast was instilled in a retrograde fashion bilaterally. The right side was unremarkable. There were no tumors, no stones, no diverticula. Unobstructed drainage was observed fluoroscopically. The left side exhibited hydroureteronephrosis. We visualized the stone in the region of the left kidney. The patient's bladder was drained. Cystoscope was withdrawn. Pelvic examination under anesthesia revealed a grade 2 cystocele, grade 2 rectocele. There was atrophic (senile) vaginitis. The patient was then uneventfully reversed from anesthesia and taken to recovery room in stable condition. There were no complications of the procedure. She tolerated the procedure well. Plans will be to return the patient to the operating room for left ESWL. Eventually, we will remove her stent as well. Hong Saba MD [place]/PREMA /[id number] cc: Leann Finnegan
== END 2018-10-05 18:50 | disposition home or self-care (01) | DRG 661 ==
LOC: ER 10:35 → ERHOLD 19:49 → MED/SURG 20:58
PROVIDERS: ADMIT Internal Medicine; ATTEND Internal Medicine
PROC: 0T778DZ Dilation of Left Ureter with Intraluminal Device, Via Natural or Artificial Opening Endoscopic (ICD-10-PCS; 2018-10-05)
PROC: BT141ZZ Fluoroscopy of Kidneys, Ureters and Bladder using Low Osmolar Contrast (ICD-10-PCS; 2018-10-05)
PROC: 0TC78ZZ Extirpation of Matter from Left Ureter, Via Natural or Artificial Opening Endoscopic (ICD-10-PCS; principal; 2018-10-05 13:30)
DX: N13.2 Hydronephrosis with renal and ureteral calculous obstruction (principal); N39.46 Mixed incontinence; I11.0 Hypertensive heart disease with heart failure; I50.9 Heart failure, unspecified; E78.00 Pure hypercholesterolemia, unspecified; I25.10 Atherosclerotic heart disease of native coronary artery without angina pectoris; Z95.5 Presence of coronary angioplasty implant and graft; Z95.1 Presence of aortocoronary bypass graft; E03.9 Hypothyroidism, unspecified; F17.200 Nicotine dependence, unspecified, uncomplicated; N28.1 Cyst of kidney, acquired; D64.9 Anemia, unspecified; Z79.82 Long term (current) use of aspirin; N81.10 Cystocele, unspecified; N81.6 Rectocele; N95.2 Postmenopausal atrophic vaginitis
CPT/HCPCS: 36415; 71045; 74018; 74176; 74177; 74420; 80053; 81001; 82550; 82553; 83605; 83690; 83735; 83880; 84484; 85025; 85610; 85730; 87040; 87086; 88300; 93005; 96361; 99284; C1758; C2617; J0290; J0696; J2001; J2270; J2405; J7030; Q9967

== ENCOUNTER → 2018-10-28 | Outpatient (CLI) | payer MEDICARE, OTHER ==
[~2018-10-28] MED LIST changes: +AVALIDE 300-121 EACH PO; +CATAPRES-TTS 11 EACH TD; +COREG CR10 MG PO; +DITROPAN XL5 MG PO; +PANTOPRAZOLE SO40 MG PO; +TYLENOL WITH C1 EACH PO; +ZOFRAN4 MG SL
--- NOTE | 2018-10-28 10:38 | Diagnostic Imaging Report ---
Exam: KUB - 2 views Clinical History: Renal calculus. Comparison: Retrograde pyelogram 10/05/2018, CT abdomen/pelvis 10/05/2018, KUB 10/04/2018. Findings: There is a left-sided internal ureteral stent with proximal pigtail overlying the expected location of the renal pelvis and the distal pigtail overlying the bladder. There is a 5 mm calcification overlying the right mid kidney and a 5 mm calcification overlying the left lower kidney. There are punctate 2 mm calcifications overlying the left upper kidney. No evidence of calcification overlying the expected course of the ureters. Nonobstructive bowel gas pattern. Dextroconvex curvature of the lumbar spine with degenerative changes. No acute osseous abnormality. There are surgical clips projecting over the lower abdomen and right pelvis. Impression: Left-sided internal ureteral stent as above. Bilateral renal stones measuring up to 5 mm. Signed by: Dr. Dhara Schultz MD on 10/28/2018 10:35 AM
== END ==
LOC: RAD 09:59
PROVIDERS: ATTEND Urology
DX: N20.0 Calculus of kidney (principal)
CPT/HCPCS: 74018

== ENCOUNTER → 2018-11-18 | Day surgery (SDC) | payer MEDICARE, OTHER ==
[2018-11-16 12:29] LABS: BASOPHILS % 0.2 % (0.0-1.0); EOSINOPHILS # (AUTO) 0.1 (0.0-0.4); EOSINOPHILS % 2.4 % (0.0-6.0); LYMPHOCYTES # (AUTO) 0.7 (1.0-3.2); LYMPHOCYTES % 12.3 % (18.0-39.1); MEAN CORPUSCULAR HEMOGLOBIN 26.2 pg (28-32); MEAN CORPUSCULAR HGB CONC 31.3 g/dL (31-35); MONOCYTES # (AUTO) 0.5 (0.2-0.8); MONOCYTES % 8.7 % (4.4-11.3); NEUTROPHILS # (AUTO) 4.5 (2.1-6.9); NEUTROPHILS % 76.2 % (38.7-80.0); PLATELET COUNT 245 x10e3/uL (140-360); RED BLOOD COUNT 3.81 x10e6/uL (3.6-5.1); RED CELL DISTRIBUTION WIDTH 15.7 % (11.7-14.4)
--- NOTE | 2018-11-16 12:38 | Diagnostic Imaging Report ---
Exam: Abdominal film Clinical History: Renal stones Comparison: 10/28/2018 DISCUSSION: See impression IMPRESSION: Unchanged position of left internal ureteral stent. Unchanged appearance of punctate left upper pole and 6 mm left lower pole renal calculi. Unchanged appearance of 5 mm right upper pole renal calculus. Nonobstructive bowel gas pattern. Signed by: Dr. Luther Aragon M.D. on 11/16/2018 12:34 PM
[2018-11-16 12:43] LABS: BLOOD UREA NITROGEN 20 mg/dL (7-26); BUN/CREATININE RATIO 24 (6-25); CARBON DIOXIDE 26 mmol/L (22-29); CHLORIDE 104 mmol/L (98-107); CREATININE, SERUM 0.82 mg/dL (0.57-1.11); EST GLOMERULAR FILTRATION RATE > 60 ML/MIN (60-); GLUCOSE 104 mg/dL (74-118); SODIUM 138 mmol/L (136-145)
[~2018-11-18] MED LIST changes: +CEFTRIAXONE SOD 1 GM/NS 50 ML 50 ML IV ONE; +DEXAMETHASONE SOD PHOS INJ 4 MG/ML VIAL ONE; +EPHEDRINE SULFATE INJ 50 MG/10 ML SYR ONE; +FENTANYL CITRATE/PF 100MCG/2 ML INJ ONE; +LIDOCAINE HCL 2% LOCAL INJ 5 ML SDV VIAL INJ ONE; +ONDANSETRON HCL INJ 2MG/ML 2ML 2 MG/ML VIAL ONE; +PROPOFOL IV EMULSION 10 MG/ML 20 ML VIAL ONE; +SEVOFLURANE INHAL SOLN 250 ML PEN BTL ONE
--- OUTSIDE RECORDS SUMMARY | 2018-11-18 07:05 | XMS REPORT | Continuity of Care Document ---
Author Author [facility] Interface Address Unknown Phone Unavailable Problems Problem Status Onset Date Classification Date Reported Comments Source 443.10 Active 12/16/2012 [place] Acid reflux Active Problem 02/21/2015 [facility] [place] Blood clot<sup>1</sup> Active Problem 02/21/2015 right [facility] [place] Fatty liver Active Problem 02/21/2015 [facility] [place] High cholesterol Active Problem 02/21/2015 [facility] [place] HTN Active Problem 02/21/2015 [facility] [place] Hypothyroid Active Problem 02/21/2015 [facility] [place] Sinusitis Active Problem 02/21/2015 [facility] [place] Acid reflux Active Problem 01/06/2013 [facility] Blood clot<sup>1</sup> Active Problem 01/06/2013 [facility] [place] Fatty liver Active Problem 01/06/2013 [place] High cholesterol Active Problem 01/06/2013 [facility] HTN Active Problem 01/06/2013 [place] Hypothyroid Active Problem 01/06/2013 [facility] Sinusitis Active Problem 01/06/2013 [facility] Kidney stone on left side Active Problem 10/05/2018 [facility] THROMBOANGIIT OBLITERANS Active [facility] Medications Medication Details Route Status Patient Instructions Ordering Provider Order Date Source Acetaminophen With Codeine (Tylenol With Codeine #3 Tablet) 1 Each Tablet Every 4 Hours as needed for Pain Active Jorge 10/02/2018 [facility] Ondansetron Hcl (Zofran*) 4 Mg Tablet Every 6 Hours as needed for Nausea Active Jorge 10/02/2018 [facility] Losartan/Hydrochlorothiazide (Losartan-Hctz 100-25 Mg Tab) 1 Each Tablet, 1 Cap Oral Daily Active 10/02/2018 [facility] Metoprolol Succinate 25 Mg Tab.er.24h, 100 Mg Oral Daily Active 10/02/2018 [facility] plavix 75 mg tablet plavix 75 mg tablet, 1 tablet, Drug form: MISC, Route: PO, Daily, 01/04/13 9:00:00, Duration: 30 day, Stop date: 02/02/13 9:00:00 PO No Longer Active [facility] 01/04/2013 [facility] METOPROLOL ER 100 MG TABLET METOPROLOL ER 100 MG TABLET, 1 TABLET, Drug form: MISC, Route: PO, Daily, 01/04/13 9:00:00, Duration: 30 day, Stop date: 02/02/13 9:00:00 PO No Longer Active [facility] 01/04/2013 [facility] chlorhexidine topical 0.12% liquid 15 ml, Route: S&SPIT, Q12H, Drug form: LIQ, Start date: 01/04/13 9:00:00, Duration: 2 week, Stop date: 01/17/13 21:00:00 S&SPIT No Longer Active [facility] 01/04/2013 [facility] chlorhexidine topical 4% soap 1 pkt, Route: BATHE, [id number], Drug form: SOLN, Start date: 01/04/13 9:00:00, Duration: 30 day, Stop date: 02/01/13 9:00:00 BATHE No Longer Active [facility] 01/04/2013 [facility] ZETIA 10 MG TABLET ZETIA 10 MG TABLET, 1 TABLET, Drug form: MISC, Route: PO, Daily, 01/04/13 9:00:00, Duration: 30 day, Stop date: 02/02/13 9:00:00 PO No Longer Active [facility] 01/04/2013 [facility] metoprolol extended release 100 mg, 2 tab, Route: PO, Drug form: ERTAB, Daily, Start date: 01/04/13 9:00:00, Duration: 30 day, Stop date: 02/02/13 9:00:00 PO No Longer Active [facility] 01/04/2013 [facility] losartan 100 mg, 2 tab, Route: PO, Drug form: TAB, Daily, Dosing Weight 69.091, kg, Start date: 01/04/13 9:00:00, Duration: 30 day, Stop date: 02/02/13 9:00:00 PO No Longer Active [facility] 01/04/2013 [facility] Plavix 75 mg, 1 tab, Route: PO, Drug form: TAB, Daily, Dosing Weight 69.091, kg, Start date: 01/04/13 9:00:00, Duration: 30 day, Stop date: 02/02/13 9:00:00 PO No Longer Active On License Of [facility] 01/04/2013 [facility] amLODipine 5 mg, 1 tab, Route: PO, Drug form: TAB, Daily, Dosing Weight 69.091, kg, Start date: 01/04/13 9:00:00, Duration: 30 day, Stop date: 02/02/13 9:00:00 PO No Longer Active On License Of [facility] 01/04/2013 [facility] aspirin 81 mg tablet, enteric coated 81 mg, Route: PO, Drug form: ECTAB, Daily, Dosing Weight 69.091, kg, Start date: 01/04/13 9:00:00, Duration: 30 day, Stop date: 02/02/13 9:00:00 PO No Longer Active On License Of [facility] 01/04/2013 [facility] amlodipine 5 mg tablet amlodipine 5 mg tablet, 1 tablet, Drug form: MISC, Route: PO, Daily, 01/04/13 9:00:00, Duration: 30 day, Stop date: 02/02/13 9:00:00 PO No Longer Active On License Of [facility] 01/04/2013 [facility] acetaminophen-hydrocodone 325 mg-5 mg oral tablet 1 tab, PO, Q4H, PRN, 40 tab, Pain Score 1-3, Substitution Allowed, Maintenance, TAB PO Active On License Of [facility] 01/04/2013 [facility] Levoxyl 50 microgram, 1 tab, Route: PO, Drug form: TAB, [id number], Dosing Weight 69.091, kg, Start date: 01/04/13 6:30:00, Duration: 30 day, Stop date: 02/02/13 6:30:00 PO No Longer Active On License Of [facility] 01/04/2013 [facility] LEVOXY 50 MCG TABLET LEVOXY 50 MCG TABLET, 1 TABLET, Drug form: MISC, Route: PO, Q630AM, 01/04/13 6:30:00, Duration: 30 day, Stop date: 02/02/13 6:30:00 PO No Longer Active On License Of [facility] 01/04/2013 [facility] nitroglycerin 0.4 mg, 1 tab, Route: SL, Drug form: TAB, Q5Min, Dosing Weight 73, kg, PRN Chest Pain, Start date: 01/04/13 5:38:00, Duration: 30 day, Stop date: 02/03/13 5:37:00 SL No Longer Active [place] 01/04/2013 [facility] docusate 100 mg, 1 cap, Route: PO, Drug form: CAP, BID, Dosing Weight 73, kg, PRN Constipation, Start date: 01/04/13 5:38:00, Duration: 30 day, Stop date: 02/03/13 5:37:00 PO No Longer Active [place] 01/04/2013 [facility] FENOFIBRATE 145 MG TABLET FENOFIBRATE 145 MG TABLET, 1 TABLET, Drug form: MISC, Route: PO, Bedtime, 01/03/13 21:00:00, Duration: 30 day, Stop date: 02/01/13 21:00:00 PO No Longer Active te 01/04/2013 [facility] LOSARTAN/HCT 100-25 TABLET LOSARTAN/HCT 100-25 TABLET, 1 TABLET, Drug form: MISC, Route: PO, Bedtime, 01/03/13 21:00:00, Duration: 30 day, Stop date: 02/01/13 21:00:00 PO No Longer Active On License Of [facility] 01/04/2013 [facility] TriCor 144 mg, 3 tab, Route: PO, Drug form: TAB, Bedtime, Dosing Weight 69.091, kg, Start date: 01/03/13 21:00:00, Duration: 30 day, Stop date: 02/01/13 21:00:00 PO No Longer Active te 01/04/2013 [facility] Zetia 10 mg, 1 tab, Route: PO, Drug form: TAB, Bedtime, Dosing Weight 69.091, kg, Start date: 01/03/13 21:00:00, Duration: 30 day, Stop date: 02/01/13 21:00:00 PO No Longer Active te 01/04/2013 [facility] aspirin 81 mg tablet, enteric coated 81 mg, 1 tab, Route: PO, Drug form: ECTAB, Bedtime, Dosing Weight 69.091, kg, Start date: 01/03/13 21:00:00, Duration: 30 day, Stop date: 02/01/13 21:00:00 PO No Longer Active [place] 01/04/2013 [facility] hydrochlorothiazide-losartan 25 mg-100 mg oral tablet 2 tab, Route: PO, Drug Form: TAB, Dosing Weight 69.091, kg, Bedtime, Start date: 01/03/13 21:00:00, Duration: 30 day, Stop date: 02/01/13 21:00:00 PO No Longer Active [place] 01/04/2013 [facility] ASPIRN EC 81 MG TABLET ASPIRN EC 81 MG TABLET, 1 TABLET, Drug form: MISC, Route: PO, Bedtime, 01/03/13 21:00:00, Duration: 30 day, Stop date: 02/01/13 21:00:00 PO No Longer Active [place] 01/04/2013 [facility] niCARdipine 40 mg in NS 200 ml IV 40 mg 40 mg, 200 mL, Rate: Titrate, Dosing Weight 73, kg, Route: IV, Total Volume: 200 mL, Duration: 30 day, Stop date: 02/02/13 18:30:00, Replace Every: 24 hr IV No Longer Active [place] 01/03/2013 [facility] pantoprazole 40 mg, 1 tab, Route: PO, Drug form: ECTAB, Before Dinner, Dosing Weight 69.091, kg, Start date: 01/03/13 16:30:00, Duration: 30 day, Stop date: 02/01/13 16:30:00 PO No Longer Active te 01/03/2013 [facility] hydrochlorothiazide-losartan 25 mg-100 mg oral tablet 1 tab, PO, Daily, at bedtime, 30 tab, Substitution Allowed, Maintenance, TABat bedtime PO Active 01/03/2013 [facility] Omnicef 300 mg oral capsule 300 mg, 1 cap, Route: PO, Drug form: CAP, [id number], Dosing Weight 69.091, kg, Start date: 01/03/13 16:00:00, Duration: 30 day, Stop date: 02/02/13 4:00:00 PO No Longer Active [place] 01/03/2013 [facility] magnesium sulfate 2 gm in Water 50 ml 2 gm, 50 mL, Route: IVPB, Drug form: INJ, ONCE, Dosing Weight 69.091, kg, Start date: 01/03/13 15:52:00, Duration: 2 hr, Stop date: 01/03/13 15:52:00 IVPB No Longer Active On License Of [facility] 01/03/2013 [facility] cefazolin (SCIP) + Sodium Chloride 0.9% IV 100 mL 1 gm, Route: IVPB, [id number], Dosing Weight 69.091, kg, Start date: 01/03/13 15:00:00, Duration: 3 doses or times, Stop date: 01/04/13 7:00:00 IVPB No Longer Active On License Of [facility] 01/03/2013 [facility] albuterol-ipratropium 2.5-0.5 mg inhalation solution 3 ml, Route: NEB, Drug Form: SOLN, Dosing Weight 69.091, kg, PRN, PRN Respiratory Protocol, Start date: 01/03/13 14:24:00, Duration: 30 day, Stop date: 02/02/13 14:23:00 NEB No Longer Active [facility] 01/03/2013 [facility] Xopenex 1.25 mg, Route: NEB, ONCE, Dosing Weight 69.091, kg, PRN Respiratory Protocol, Start date: 01/03/13 11:21:00, Stop date: 02/02/13 11:20:00 NEB No Longer Active [facility] 01/03/2013 [facility] ondansetron 4 mg, 2 mL, Route: IVP, Drug form: INJ, Q8H, Dosing Weight 69.091, kg, PRN Nausea & Vomiting, Start date: 01/03/13 9:55:00, Duration: 30 day, Stop date: 02/02/13 9:54:00 IVP No Longer Active On License Of [facility] 01/03/2013 [facility] promethazine 12.5 mg, 50 mL, Route: IVPB, Drug form: SOLN, Q6H, Dosing Weight 69.091, kg, PRN Nausea & Vomiting, Start date: 01/03/13 9:55:00, Duration: 30 day, Stop date: 02/02/13 9:54:00 IVPB No Longer Active On License Of [facility] 01/03/2013 [facility] nitroglycerin 0.4 mg, 1 tab, Route: SL, Drug form: TAB, Q5Min, Dosing Weight 69.091, kg, PRN Chest Pain, Start date: 01/03/13 9:55:00, Duration: 30 day, Stop date: 02/02/13 9:54:00 SL No Longer Active On License Of [facility] 01/03/2013 [facility] morphine Sulfate 2 mg, 1 mL, Route: IVP, Drug form: INJ, Q2H, Dosing Weight 69.091, kg, PRN Pain Score 1-5, Start date: 01/03/13 9:55:00, Duration: 30 day, Stop date: 02/02/13 9:54:00 IVP No Longer Active On License Of [facility] 01/03/2013 [facility] acetaminophen-hydrocodone 325 mg-5 mg oral tablet 1 tab, Route: PO, Drug Form: TAB, Dosing Weight 69.091, kg, Q4H, PRN Pain Score 1-3, Start date: 01/03/13 9:55:00, Duration: 30 day, Stop date: 02/02/13 9:54:00 PO No Longer Active On License Of [facility] 01/03/2013 [facility] Sodium Chloride 0.9% IV 1,000 mL 1,000 mL, Rate: 100 ml/hr, Infuse over: 10 hr, Route: IV, Dosing Weight 69.091 kg, Total Volume: 1,000, Start date: 01/03/13 9:55:00, Duration: 12 hr, Stop date: 01/03/13 21:54:00 IV No Longer Active On License Of [facility] 01/03/2013 [facility] cefazolin 1 gm, Route: IVPB, ONCE, Dosing Weight 69.091, kg, Start date: 01/03/13 9:39:00, Duration: 1 doses or times, Stop date: 01/03/13 9:39:00 IVPB No Longer Active On License Of [facility] 01/03/2013 [facility] flumazenil 0.2 mg, 2 mL, Route: IVP, Drug form: INJ, PRN, Dosing Weight 69.091, kg, PRN Benzodiazepine Reversal, Initial dose, Start date: 01/03/13 8:51:00, Duration: 8 hr, Stop date: 01/03/13 16:50:00 IVP No Longer Active [facility] 01/03/2013 [facility] morphine Sulfate 2 mg, 1 mL, Route: IVP, Drug form: INJ, Q5Min, Dosing Weight 69.091, kg, PRN Pain Score 4-6, Start date: 01/03/13 8:51:00, Duration: 5 doses or times, Stop date: Limited # of times IVP No Longer Active [facility] 01/03/2013 [facility] ondansetron 4 mg, 2 mL, Route: IVP, Drug form: INJ, ONCE, Dosing Weight 69.091, kg, PRN Nausea & Vomiting, Start date: 01/03/13 8:51:00 IVP No Longer Active [facility] 01/03/2013 [facility] naloxone 0.04 mg, 0.1 mL, Route: IVP, Drug form: INJ, Q2MIN, Dosing Weight 69.091, kg, PRN Narcotic Reversal, Start date: 01/03/13 8:51:00, Duration: 8 doses or times, Stop date: Limited # of times IVP No Longer Active [facility] 01/03/2013 [facility] NS 500 mL 500 mL, Rate: 30 ml/hr, Infuse over: 16.7 hr, Route: INTRAARTERIAL, Dosing Weight 69.091 kg, Total Volume: 500, Start date: 01/03/13 7:13:00, Duration: 12 hr, Stop date: 01/03/13 19:12:00 INTRAARTERIAL No Longer Active [facility] 01/03/2013 [facility] lidocaine 0.1 mL, Route: IV, Drug form: INJ, ONCALL, Start date: 01/03/13 5:00:00, Duration: 1 doses or times IV No Longer Active [place] 01/03/2013 [facility] Lactated Ringers Injection IV 1,000 mL 1,000 mL, Rate: 100 ml/hr, Infuse over: 10 hr, Route: IV, Dosing Weight 69.091 kg, Total Volume: 1,000, Start date: 01/03/13 5:00:00, Duration: 1 doses or times, Stop date: 01/03/13 14:59:00 IV No Longer Active [place] 01/03/2013 [facility] Omnicef 300 mg oral capsule 300 mg, 1 cap, PO, Q12H, 14 cap, Substitution Allowed, CAP PO No Longer Active On License Of [facility] 12/28/2012 [facility] aspirin 81 mg tablet, enteric coated 81 mg, 1 tab, PO, Daily, 0 tab, Substitution Allowed, ECTAB PO Active 12/28/2012 [facility] Zetia 10 mg oral tablet 10 mg, 1 tab, PO, Daily, 30 tab, Substitution Allowed, TAB PO Active 12/28/2012 [facility] TriCor 145 mg, PO, Daily, Substitution Allowed, TAB PO Active On License Of [facility] 12/28/2012 [facility] losartan 100 mg oral tablet 100 mg, 1 tab, PO, Daily, 30 tab, Substitution Allowed, TAB PO No Longer Active 12/28/2012 [facility] Levoxyl 50 mcg (0.05 mg) oral tablet 50 microgram, 1 tab, PO, Daily, 30 tab, Substitution Allowed, TAB PO Active On License Of [facility] 12/28/2012 [facility] pantoprazole 40 mg oral enteric coated tablet 40 mg, 1 tab, PO, Daily, 30 tab, Substitution Allowed, ECTAB PO Active On License Of [facility] 12/28/2012 [facility] amLODipine 5 mg, PO, Daily, Substitution Allowed, TAB PO Active 12/28/2012 [facility] metoprolol 100 mg oral tablet, extended release 100 mg, 1 tab, PO, Daily, 30 tab, Substitution Allowed PO Active 12/28/2012 [facility] Plavix 75 mg oral tablet 75 mg, 1 tab, PO, Daily, 30 tab, Substitution Allowed, TAB PO Active 12/28/2012 [facility] cefazolin + Sodium Chloride 0.9% IV 100 mL 1 gm, Route: IVPB, Drug form: PDR/INJ, ONCALL, Dosing Weight 64.545, kg, Start date: 12/28/12 11:00:00, Duration: 30 day, Stop date: 01/27/13 10:59:00 IVPB No Longer Active On License Of [facility] 12/28/2012 [facility] Sodium Chloride 0.9% (titrate) 250 mL 250 mL, Rate: adjustment clerk for use with blood product administration, Dosing Weight 64.545, kg, Route: IV, Total Volume: 250, Duration: 12 hr, Stop date: 12/28/12 22:59:00, Replace Every: 12 hr IV No Longer Active On License Of [facility] 12/28/2012 [facility] Sodium Chloride 0.9% IV 1,000 mL 1,000 mL, Rate: 125 ml/hr, Infuse over: 8 hr, Route: IV, Dosing Weight 64.545 kg, Total Volume: 1,000, Start date: 12/28/12 10:43:00, Duration: 30 day, Stop date: 01/27/13 10:42:00 IV No Longer Active On License Of [facility] 12/28/2012 [facility] Acetaminophen With Codeine (Tylenol With Codeine #3 Tablet) 1 Each Tablet Every 4 Hours for Pain Active [facility] Amlodipine Besylate 5 Mg Tablet Twice A Day Active [facility] Aspirin (Aspir 81) 81 Mg Tablet.dr Michaud Active [facility] Atorvastatin Calcium 10 Mg Tablet Today At 9:00PM Active [facility] B12 Daily Active [facility] Carvedilol (Coreg Cr*) 10 Mg Capcr Twice A Day [facility] Cholecalciferol (Vitamin D3) (Vitamin D) 1,000 Unit Tablet Daily Active [facility] Clonidine (Catapres-Tts 1) 1 Each Patch.tdwk [facility] Ezetimibe (Zetia) 10 Mg Tablet Mon, Wed, Wed Active [facility] Fenofibrate Nanocrystallized (Fenofibrate) 145 Mg Tablet Daily [facility] Irbesartan/Hydrochlorothiazide (Avalide 300-12.5 Mg Tablet) 1 Each Tablet Daily [facility] Levothyroxine Sodium (Synthroid) 50 Mcg Tab Today At 6:30AM Active [facility] Oxybutynin Chloride (Ditropan Xl) 5 Mg Tab.er.24 Three Times A Day for Overactive Bladder Active [facility] Pantoprazole Sodium (Protonix) 40 Mg Tablet.dr Michaud [facility] Allergies, Adverse Reactions, Alerts Substance Category Reaction Severity Reaction type Status Date Reported Comments Source Immunizations Immunization Date Given Site Status Last Updated Comments Source Results Order Name Results Value Reference Range Date Interpretation Comments Source Urine color determination YELLOW YELLOW 10/02/2018 [facility] Urine clarity CLEAR CLEAR 10/02/2018 [facility] Specific gravity of Urine by Test strip 1.010 1.010 - 1.025 10/02/2018 [facility] Urine pH measurement by automated test strip 8 5 - 7 10/02/2018 [facility] Urine leukocyte esterase detection by dipstick NEGATIVE NEGATIVE 10/02/2018 [facility] Urine nitrite detection NEGATIVE NEGATIVE 10/02/2018 [facility] Urine protein measurement by test strip (mass/volume) NEGATIVE NEGATIVE 10/02/2018 [facility] Urine glucose detection NEGATIVE NEGATIVE 10/02/2018 [facility] Urine ketones detection by automated test strip NEGATIVE NEGATIVE 10/02/2018 [facility] Urine urobilinogen measurement by test strip (mass/volume) 0.2 0.2 - 1 10/02/2018 [facility] Urine total bilirubin measurement (mass/volume) NEGATIVE NEGATIVE 10/02/2018 [facility] Urine erythrocytes detection 2+ NEGATIVE 10/02/2018 [facility] Automated urine sediment leukocyte count by microscopy (number/high power field) 0-5 0 - 5 10/02/2018 [facility] Erythrocytes detection in urine sediment by light microscopy 11-20 0 - 5 10/02/2018 [facility] Bacteria detection in urine sediment by light microscopy RARE NONE 10/02/2018 [facility] Epithelial cells detection in urine sediment by light microscopy RARE NONE 10/02/2018 [facility] Blood culture NO GROWTH AFTER 72 HOURS 10/02/2018 [facility] Blood leukocytes automated count (number/volume) 9.48 4.8 - 10.8 10/02/2018 [facility] Blood erythrocytes automated count (number/volume) 4.07 3.6 - 5.1 10/02/2018 [facility] Blood hemoglobin measurement (moles/volume) 10.9 12.0 - 16.0 10/02/2018 [facility] Automated blood hematocrit (volume fraction) 34.9 34.2 - 44.1 10/02/2018 [facility] Automated erythrocyte mean corpuscular volume 85.7 81 - 99 10/02/2018 [facility] Automated erythrocyte mean corpuscular hemoglobin (mass per erythrocyte) 26.8 28 - 32 10/02/2018 [facility] Automated erythrocyte mean corpuscular hemoglobin concentration measurement (mass/volume) 31.2 31 - 35 10/02/2018 [facility] RDW BldCo-Rto 15.6 11.7 - 14.4 10/02/2018 [facility] Automated blood platelet count (count/volume) 237 140 - 360 10/02/2018 [facility] Automated blood segmented neutrophil count as percentage of total leukocytes 80.4 38.7 - 80.0 10/02/2018 [facility] Automated blood lymphocyte count as percentage ot total leukocytes 9.3 18.0 - 39.1 10/02/2018 [facility] Automated blood monocyte count as percentage of total leukocytes 8.1 4.4 - 11.3 10/02/2018 [facility] Automated blood eosinophil count as percentage of total leukocytes 1.6 0.0 - 6.0 10/02/2018 [facility] Automated blood basophil count as percentage of total leukocytes 0.4 0.0 - 1.0 10/02/2018 [facility] IM GRANULOCYTES % 0.2 0.0 - 1.0 10/02/2018 [facility] Automated blood neutrophil count 7.6 2.1 - 6.9 10/02/2018 [facility] Blood lymphocytes count (number/volume) 0.9 1.0 - 3.2 10/02/2018 [facility] Blood monocytes automated count (number/volume) 0.8 0.2 - 0.8 10/02/2018 [facility] Automated blood eosinophil count 0.2 0.0 - 0.4 10/02/2018 [facility] Automated blood basophil count (count/volume) 0.0 0.0 - 0.1 10/02/2018 [facility] Absolute Immature Granulocyte (auto 0.02 0 - 0.1 10/02/2018 [facility] Prothrombin time (PT) in platelet poor plasma by coagulation assay 13.0 11.9 - 14.5 10/02/2018 [facility] INR in Platelet poor plasma by Coagulation assay 0.93 10/02/2018 [facility] Activated partial thromboplastin time (aPTT) in platelet poor plasma bycoagulation assay 28.1 23.8 - 35.5 10/02/2018 [facility] Serum or plasma sodium measurement (moles/volume) 136 136 - 145 10/02/2018 [facility] Serum or plasma potassium measurement (moles/volume) 4.1 3.5 - 5.1 10/02/2018 [facility] Serum or plasma chloride measurement (moles/volume) 102 98 - 107 10/02/2018 [facility] Serum or plasma carbon dioxide, total measurement (moles/volume) 25 22 - 29 10/02/2018 [facility] Serum or plasma anion gap 13.1 8 - 16 10/02/2018 [facility] Serum or plasma urea nitrogen measurement (mass/volume) 23 7 - 26 10/02/2018 [facility] Serum or plasma creatinine measurement (mass/volume) 0.71 0.57 - 1.11 10/02/2018 [facility] Serum or plasma urea nitrogen/creatinine mass ratio 31 6 - 25 10/02/2018 [facility] Estimated glomerular filtration rate (GFR) determination > 60 60 10/02/2018 [facility] Glucose measurement 127 74 - 118 10/02/2018 [facility] Serum or plasma calcium measurement (mass/volume) 9.8 8.4 - 10.2 10/02/2018 [facility] Lactic Acid Level 14.9 4.5 - 19.8 10/02/2018 [facility] Serum or plasma magnesium measurement (mass/volume) 1.7 1.3 - 2.1 10/02/2018 [facility] Serum or plasma total bilirubin measurement (mass/volume) 0.5 0.2 - 1.2 10/02/2018 [facility] Aspartate Amino Transf (AST/SGOT) 25 5 - 34 10/02/2018 [facility] Serum or plasma alanine aminotransferase measurement (enzymatic activity/volume) 13 0 - 55 10/02/2018 [facility] Serum or plasma protein measurement (mass/volume) 7.3 6.5 - 8.1 10/02/2018 [facility] Serum or plasma albumin measurement (mass/volume) 4.0 3.5 - 5.0 10/02/2018 [facility] Plasma globulin measurement (mass/volume) 3.1 2.3 - 3.5 10/02/2018 [facility] Serum or plasma albumin/globulin mass ratio 1.4 0.8 - 2.0 10/02/2018 [facility] Serum or plasma alkaline phosphatase measurement (enzymatic activity/volume) 64 40 - 150 10/02/2018 [facility] BNP Bld-mCnc 103.7 0 - 100 10/02/2018 [facility] Serum or plasma creatine kinase measurement (enzymatic activity/volume) 71 29 - 168 10/02/2018 [facility] Serum or plasma creatine kinase MB measurement (mass/volume) 2.00 0 - 5.0 10/02/2018 [facility] Troponin I measurement by highly sensitive enzyme immunoassay 0.006 0 - 0.300 10/02/2018 [facility] Serum or plasma lipase measurement (enzymatic activity/volume) 33 8 - 78 10/02/2018 [facility] Spine lumbar wo contrast MRI Spine lumbar [...] Orellana MD 02/18/15 11:14 FINAL REPORT CHRIS ALEN Castanon Spine lumbar series DX Spine lumbar series [...] Dewayne Chester MD 08/16/14 15:09 FINAL REPORT ALEN Castanon Sacroiliac joints series DX Sacroiliac joints series [...] Yusuf MD 08/16/14 15:30 FINAL REPORT ALEN Castanon Digital Mammo Screening Edward MA Digital Mammo [...] Dr. Lester De Leon M.D. eoc/penrad:07/09/2014 15:25:21 Electronic Gluing Machine Operator: Billie KHAN(R)(M), [facility] This exam was dictated and interpreted by [id number] for CHRIS Ryder. letter sent: Normal exam Mammogram BI-RADS: 1 Negative 07/03/2014 - - Read by: Lester De Leon MD Dictated Date/time: 07/09/14 15:25 Electronically Signed by: Lester De Leon MD 07/09/14 15:25 FINAL REPORT [facility] BEDSIDE GLUCOSE TESTING Gluc POC Lifscn 137 mg/dL 70 - 99 01/04/2013 HI 2Interpretive Data: Upper Reportable Limit: 200 mg/dL. [facility] BEDSIDE GLUCOSE TESTING Comment1 Notify RN 01/04/2013 NA [facility] BEDSIDE GLUCOSE TESTING Gluc POC Lifscn 212 mg/dL 70 - 99 01/04/2013 HI 3Interpretive Data: Upper Reportable Limit: 200 mg/dL. [facility] BACTERIAL - SEROLOGY MRSA by PCR [...] by the [facility] within the [facility]. The [facility] is authorized under the Clinical Laboratory Improvement Amendment of 1988 (CLIA-88) to perform high complexity testing. [facility] BEDSIDE GLUCOSE TESTING Gluc POC Lifscn 128 mg/dL 70 - 99 01/03/2013 HI 4Interpretive Data: Upper Reportable Limit: 200 mg/dL. [facility] BLOOD BANK RESULTS ABO/Rh A POS 12/28/2012 Unknown [facility] BLOOD BANK RESULTS Antibody Scrn Negative (12/28/2012 11:15:00) 12/28/2012 Normal [facility] CHEMISTRY AGAP 12.8 meq/L 10.0 - 20.0 12/28/2012 Normal [facility] CHEMISTRY eGFR 77 mL/min/1.73m2 12/28/2012 NA [...] should be multiplied by the estimated BMI. [facility] CHEMISTRY Glucose Lvl 107 mg/dL 70 - 99 12/28/2012 HI 6Interpretive Data: Adult reference range values reflect the clinical guidelines of the [place] [employer]. [facility] CHEMISTRY Potassium Lvl 4.8 meq/L 3.5 - 5.1 12/28/2012 Normal [facility] CHEMISTRY Chloride Lvl 102 meq/L 95 - 109 12/28/2012 Normal [facility] CHEMISTRY CO2 28 meq/L 24 - 32 12/28/2012 Normal [facility] CHEMISTRY Calcium Lvl 10.0 mg/dL 8.5 - 10.5 12/28/2012 Normal [facility] CHEMISTRY Creatinine Lvl 0.8 mg/dL 0.5 - 1.4 12/28/2012 Normal [facility] CHEMISTRY Sodium Lvl 138 meq/L 135 - 145 12/28/2012 Normal [facility] CHEMISTRY BUN 29 mg/dL 7 - 22 12/28/2012 [facility] CHEMISTRY Magnesium Lvl 1.7 mg/dL 1.8 - 2.4 12/28/2012 LOW [facility] CHEMISTRY Phosphorus 3.5 mg/dL 2.5 - 4.5 12/28/2012 Normal [facility] CHEMISTRY AST 40 unit/L 0 - 37 12/28/2012 [facility] HEMATOLOGY Segs 80.9 % 45.0 - 75.0 12/28/2012 [facility] HEMATOLOGY Segs-Bands # 6.2 K/CMM 1.5 - 8.1 12/28/2012 Normal [facility] HEMATOLOGY Lymphocytes # 1.0 K/CMM 1.0 - 5.5 12/28/2012 Normal [facility] HEMATOLOGY Monocytes # 0.4 K/CMM 0.0 - 0.8 12/28/2012 Normal [facility] HEMATOLOGY Basophils # 0.0 K/CMM 0.0 - 0.2 12/28/2012 Normal [facility] HEMATOLOGY Eosinophils # 0.0 K/CMM 0.0 - 0.5 12/28/2012 Normal [facility] HEMATOLOGY Eosinophils 0.3 % 0.0 - 4.0 12/28/2012 Normal [facility] HEMATOLOGY Basophils 0.3 % 0.0 - 1.0 12/28/2012 Normal [facility] HEMATOLOGY Lymphocytes 13.5 % 20.0 - 40.0 12/28/2012 LOW [facility] HEMATOLOGY Monocytes 5.0 % 2.0 - 12.0 12/28/2012 Normal [facility] HEMATOLOGY PT 13.3 s 12.0 - 14.7 12/28/2012 Normal [facility] HEMATOLOGY INR 0.99 0.85 - 1.17 12/28/2012 Normal 7Interpretive Data: RECOMMENDED RANGES FOR PROTIME INR: 2.0-3.0 for most medical and surgical thromboembolic states. 2.5-3.5 for artificial heart valves and recurrent embolism. INR SHOULD BE USED ONLY FOR PATIENTS ON STABLE ANTICOAGULANT THERAPY. [facility] HEMATOLOGY PTT 27.4 s 22.9 - 35.8 12/28/2012 Normal 8Interpretive Data: Heparin Therapeutic Range: 57 - 92 Seconds [facility] HEMATOLOGY MCH 30.0 pg 27.0 - 31.0 12/28/2012 Normal [facility] HEMATOLOGY RDW 14.1 % 11.5 - 14.5 12/28/2012 Normal [facility] HEMATOLOGY MPV 9.3 fL 7.4 - 10.4 12/28/2012 Normal [facility] HEMATOLOGY Platelet 222 K/CMM 133 - 450 12/28/2012 Normal [facility] HEMATOLOGY MCHC 32.3 g/dL 32.0 - 36.0 12/28/2012 Normal [facility] HEMATOLOGY Hgb 13.0 g/dL 12.0 - 16.0 12/28/2012 Normal [facility] HEMATOLOGY Hct 40.3 % 36.0 - 48.0 12/28/2012 Normal [facility] HEMATOLOGY RBC 4.34 M/CMM 4.20 - 5.40 12/28/2012 Normal [facility] HEMATOLOGY MCV 92.8 fL 81.0 - 99.0 12/28/2012 Normal [facility] HEMATOLOGY WBC 7.7 K/CMM 3.7 - 10.4 12/28/2012 Normal [facility] URINALYSIS UA WBC 0-2 /HPF (12/28/2012 11:15:00) None Seen 12/28/2012 Normal [facility] URINALYSIS UA Bacteria Occasional /HPF (12/28/2012 11:15:00) None Seen 12/28/2012 Normal [facility] URINALYSIS UA RBC None Seen (12/28/2012 11:15:00) 0 - 2 12/28/2012 Normal [facility] URINALYSIS UA Leuk Est Trace *ABN* (12/28/2012 11:15:00) Negative 12/28/2012 ABN [facility] URINALYSIS UA Nitrite Negative (12/28/2012 11:15:00) Negative 12/28/2012 Normal [facility] URINALYSIS UA Glucose Negative (12/28/2012 11:15:00) Negative 12/28/2012 Normal [facility] URINALYSIS UA Urobilinogen 0.2 EU/dL 0.1 - 1.0 12/28/2012 Normal [facility] URINALYSIS UA Bili Negative *NA* (12/28/2012 11:15:00) Negative 12/28/2012 NA [facility] URINALYSIS UA Ketones Negative *NA* (12/28/2012 11:15:00) Negative 12/28/2012 NA [facility] URINALYSIS UA Blood Negative (12/28/2012 11:15:00) Negative 12/28/2012 Normal [facility] URINALYSIS UA Sq Epi Occasional /LPF (12/28/2012 11:15:00) Few 12/28/2012 Normal [facility] URINALYSIS UA Turbidity Clear (12/28/2012 11:15:00) Clear 12/28/2012 Normal [facility] URINALYSIS UA Spec Grav 1.010 <=1.030 12/28/2012 Normal [facility] URINALYSIS UA Color STRAW 12/28/2012 NA [facility] URINALYSIS UA pH 6.0 5.0 - 8.0 12/28/2012 Normal [facility] URINALYSIS UA Protein Negative (12/28/2012 11:15:00) Negative 12/28/2012 Normal [facility] Microbiology Culture: MRSA 12/28/2012 [facility] Microbiology Culture: Urine 12/28/2012 [facility] CHEMISTRY FiO2 Art 21.0 12/28/2012 NA [facility] CHEMISTRY pH Art 7.40 7.35 - 7.45 12/28/2012 Normal [facility] CHEMISTRY BE Art 0 mMol/L -2-2 - 2 12/28/2012 Normal [facility] CHEMISTRY HCO3 Art 25 mMol/L 22 - 26 12/28/2012 Normal [facility] CHEMISTRY pO2 Art 82 mm[Hg] 80 - 100 12/28/2012 Normal [facility] CHEMISTRY pCO2 Art 40 mm[Hg] 35 - 45 12/28/2012 Normal [facility] CHEMISTRY Mode Art Rm Air (12/28/2012 11:10:24) 12/28/2012 Normal [facility] CHEMISTRY Allens Art Positive (12/28/2012 11:10:24) 12/28/2012 Normal [facility] CHEMISTRY Temp Art 37.0 Claudia 12/28/2012 NA [facility] CHEMISTRY Site Art Left Rad (12/28/2012 11:10:24) 12/28/2012 Normal [facility] CHEMISTRY O2 Sat Art 96.0 % 95.0 - 100.0 12/28/2012 Normal [facility] Chest 1view Chest 1view NAME: SARAH [...] Magdaleno Marvin MD 12/28/12 12:06 FINAL REPORT [facility] Bacterial urine culture Urine Culture [facility] Vital Signs Vital Sign Value Date Comments Source Diastolic (mm Hg) 60 01/04/2013 [facility] Systolic (mm Hg) 112 01/04/2013 [facility] Respitory Rate 20 01/04/2013 [facility] Diastolic (mm Hg) 40 01/04/2013 [facility] Systolic (mm Hg) 119 01/04/2013 [facility] Respitory Rate 30 01/04/2013 [facility] Diastolic (mm Hg) 40 01/04/2013 [facility] Respitory Rate 22 01/04/2013 [facility] Systolic (mm Hg) 119 01/04/2013 [facility] Temperature Oral (F) 97.4 F 01/04/2013 [facility] Temperature Oral (F) 97.6 F 01/04/2013 [facility] Temperature Oral (F) 97.5 F 01/04/2013 [facility] Weight 73 01/03/2013 [facility] Height 162.56 cm 01/03/2013 [facility] Heart Rate 55 01/03/2013 [facility] Heart Rate 63 01/03/2013 [facility] Heart Rate 65 12/28/2012 [facility] Weight 69.091 12/28/2012 [facility] Height 162.56 cm 12/28/2012 [facility] Encounters Location Location Details Encounter Type Encounter Number Reason For Visit Attending Provider ADM Date DC Date Status Source Not Sent Inpatient [id number] VALERY NIEVES 01/03/2013 01/04/2013 Active [facility] [place] [id number] Leann Sivan 07/03/2014 07/04/2014 [facility] [place] [facility] [id number] Leann Finnegan 08/16/2014 08/17/2014 [facility] [place] [facility] [id number] Leann Sivan 02/18/2015 02/19/2015 [facility] [place] Discharged Inpatient [id number] BRITNEY WALTERS MD 10/02/2018 10/05/2018 [facility] Procedures Procedure Code Date Perfomer Comments Source Cystoscopy with retrograde pyelography [id number] 10/05/2018 [facility] CT of abdomen and pelvis without contrast [id number] 10/05/2018 [facility] Computed tomography of abdomen and pelvis with contrast [id number] [facility]/02[facility] subclavian artery [id number] [facility] [place] Appendectomy [id number] [facility] [place] Arthrectomy [id number] [facility] [place] Bunionectomy [id number] [facility] [place] Cataract [id number] [facility] [place] Femoral-popliteal artery bypass graft<sup>1</sup> [id number] 2012 [facility] [place] History of - hysterectomy [id number] [facility] [place] History of tonsillectomy [id number] [facility] [place] Angioplasty of subclavian artery [id number] [facility] [id number] [facility] Arthrectomy [id number] [facility] Bunion[facility] [id number] [facility] Femoral-popliteal artery bypass graft <sup>1</sup> [id number] [facility] History of - hysterectomy [id number] [facility] History of tonsillectomy [id number] [facility]
[2018-11-18 10:05] VITALS: BP 112/49
--- NOTE | 2019-01-04 04:30 | Operative Report ---
DATE OF PROCEDURE: 11/18/2018 SURGEON: Hong Saba MD PREOPERATIVE DIAGNOSIS: Left nephrolithiasis. POSTOPERATIVE DIAGNOSIS: Left nephrolithiasis. OPERATION PERFORMED: 1. Staged left-sided extracorporeal shockwave lithotripsy. 2. Supervision of fluoroscopy, no radiologist present. ANESTHESIA: General. COMPLICATIONS: None. CLINICAL SUMMARY: Ping Lockhart is a 73-year-old woman with an indwelling ureteral stent in place. This was placed due to nephrolithiasis. The patient is brought for staged procedure. She is aware of the risks of bleeding, infection, injury to adjacent structures, need for additional procedures and elected to proceed. She understands she will need an additional procedure to remove her stent and hopefully render her stone free at that time. OPERATIVE PROCEDURE IN DETAIL: Informed consent was verified. Ping Lockhart was properly identified, taken to the operating room, and placed on the lithotripsy table in supine position. Anesthesia was uneventfully begun. The patient's left-sided nephrolithiasis was 8 mm in size and located in the lower pole was localized with biplanar fluoroscopy. A total of 3000 shocks were delivered with excellent fragmentation. The patient was then uneventfully reversed from anesthesia and taken to recovery room in stable condition. There were no complications to the procedure. She tolerated the procedure well. Explicit postoperative instructions were given. Plans will be to return the patient to the operating room in several weeks to remove her stent, performed left ureteroscopy, and hopefully render the patient's stent free and stone free. Hong Saba MD [place]/MODL /[id number] cc: Leann Finnegan
== END | disposition home or self-care (01) ==
LOC: OR 06:54
PROVIDERS: ATTEND Urology
DX: N20.0 Calculus of kidney (principal); Z96.0 Presence of urogenital implants; I25.10 Atherosclerotic heart disease of native coronary artery without angina pectoris; J44.9 Chronic obstructive pulmonary disease, unspecified; I25.2 Old myocardial infarction; I11.0 Hypertensive heart disease with heart failure; I50.9 Heart failure, unspecified; E78.5 Hyperlipidemia, unspecified; M06.9 Rheumatoid arthritis, unspecified; Z72.0 Tobacco use; Z01.812 Encounter for preprocedural laboratory examination; Z79.82 Long term (current) use of aspirin; Z86.718 Personal history of other venous thrombosis and embolism; Z95.5 Presence of coronary angioplasty implant and graft
CPT/HCPCS: 36415; 50590; 74018; 80048; 85025; J0696; J1100; J2001; J2405; J2704; J3010

== ENCOUNTER → 2018-12-23 | Day surgery (SDC) | payer MEDICARE, OTHER ==
[~2018-12-23] MED LIST changes: +ATROPINE SULFATE 1 MG/ML VIAL ONE; +B&O 60MG R/S 60 MG SUPP PR ONE; +IOPAMIDOL 610MG/1ML 300 MG/ML VIAL IV ONE; +MIDAZOLAM HCL 2 MG/2 ML VIAL ONE
--- OUTSIDE RECORDS SUMMARY | 2018-12-23 12:04 | XMS REPORT | Continuity of Care Document ---
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 Name Role Phone [employer] Unavailable Unavailable Problems Problem Status Onset Date Classification Date Reported Comments Source 443.10 Active 12/16/2012 [place] Acid reflux Active Problem 02/21/2015 [facility] [place] Blood clot1 Active Problem 02/21/2015 right [facility] [place] Fatty liver Active Problem 02/21/2015 [facility] [place] High cholesterol Active Problem 02/21/2015 [facility] [place] HTN Active Problem 02/21/2015 [facility] [place] Hypothyroid Active Problem 02/21/2015 [facility] [place] Sinusitis Active Problem 02/21/2015 [facility] [place] Acid reflux Active Problem 01/06/2013 [facility] Blood clot1 Active Problem 01/06/2013 1right [place] Fatty liver Active Problem 01/06/2013 [facility] High cholesterol Active Problem 01/06/2013 [facility] HTN Active Problem 01/06/2013 [facility] Hypothyroid Active Problem 01/06/2013 [facility] Sinusitis Active Problem 01/06/2013 [facility] Kidney stone on left side Active Problem 10/05/2018 [facility] THROMBOANGIIT OBLITERANS Active [facility] Medications Medication Details Route Status Patient Instructions Ordering Provider Order Date Source Acetaminophen With Codeine (Tylenol With Codeine #3 Tablet) 1 Each Tablet Every 4 Hours as needed for Pain Active [facility] 10/02/2018 [facility] Ondansetron Hcl (Zofran*) 4 Mg Tablet Every 6 Hours as needed for Nausea Active [facility] 10/02/2018 [facility] Losartan/Hydrochlorothiazide (Losartan-Hctz 100-25 Mg Tab) 1 Each Tablet, 1 Cap Oral Daily Active 10/02/2018 [facility] Metoprolol Succinate 25 Mg Tab.er.24h, 100 Mg Oral Daily Active 10/02/2018 [facility] plavix 75 mg tablet plavix 75 mg tablet, 1 tablet, Drug form: MISC, Route: PO, Daily, 01/04/13 9:00:00, Duration: 30 day, Stop date: 02/02/13 9:00:00 PO No Longer Active [facility] 01/04/2013 [facility] METOPROLOL ER 100 MG TABLET METOPROLOL ER 100 MG TABLET, 1 TABLET, Drug form: MISC, Route: PO, Daily, 01/04/13 9:00:00, Duration: 30 day, Stop date: 02/02/13 9:00:00 PO No Longer Active [facility] 01/04/2013 [facility] chlorhexidine topical 0.12% liquid 15 ml, Route: S&SPIT, Q12H, Drug form: LIQ, Start date: 01/04/13 9:00:00, Duration: 2 week, Stop date: 01/17/13 21:00:00 S&SPIT No Longer Active [facility] 01/04/2013 [facility] chlorhexidine topical 4% soap 1 pkt, Route: BATHE, Q-M-[id number], Drug form: SOLN, Start date: 01/04/13 9:00:00, Duration: 30 day, Stop date: 02/01/13 9:00:00 BATHE No Longer Active [facility] 01/04/2013 [facility] ZETIA 10 MG TABLET ZETIA 10 MG TABLET, 1 TABLET, Drug form: MISC, Route: PO, Daily, 01/04/13 9:00:00, Duration: 30 day, Stop date: 02/02/13 9:00:00 PO No Longer Active [facility] 01/04/2013 [facility] metoprolol extended release 100 mg, 2 tab, Route: PO, Drug form: ERTAB, Daily, Start date: 01/04/13 9:00:00, Duration: 30 day, Stop date: 02/02/13 9:00:00 PO No Longer Active [facility] 01/04/2013 [facility] losartan 100 mg, 2 tab, Route: PO, Drug form: TAB, Daily, Dosing Weight 69.091, kg, Start date: 01/04/13 9:00:00, Duration: 30 day, Stop date: 02/02/13 9:00:00 PO No Longer Active [facility] 01/04/2013 [facility] Plavix 75 mg, 1 tab, Route: PO, Drug form: TAB, Daily, Dosing Weight 69.091, kg, Start date: 01/04/13 9:00:00, Duration: 30 day, Stop date: 02/02/13 9:00:00 PO No Longer Active [facility] 01/04/2013 [facility] amLODipine 5 mg, 1 tab, Route: PO, Drug form: TAB, Daily, Dosing Weight 69.091, kg, Start date: 01/04/13 9:00:00, Duration: 30 day, Stop date: 02/02/13 9:00:00 PO No Longer Active [facility] 01/04/2013 [facility] aspirin 81 mg tablet, enteric coated 81 mg, Route: PO, Drug form: ECTAB, Daily, Dosing Weight 69.091, kg, Start date: 01/04/13 9:00:00, Duration: 30 day, Stop date: 02/02/13 9:00:00 PO No Longer Active [facility] 01/04/2013 [facility] amlodipine 5 mg tablet amlodipine 5 mg tablet, 1 tablet, Drug form: MISC, Route: PO, Daily, 01/04/13 9:00:00, Duration: 30 day, Stop date: 02/02/13 9:00:00 PO No Longer Active [facility] 01/04/2013 [facility] acetaminophen-hydrocodone 325 mg-5 mg oral tablet 1 tab, PO, Q4H, PRN, 40 tab, Pain Score 1-3, Substitution Allowed, Maintenance, TAB PO Active te 01/04/2013 [facility] Levoxyl 50 microgram, 1 tab, Route: PO, Drug form: TAB, Q630AM, Dosing Weight 69.091, kg, Start date: 01/04/13 6:30:00, Duration: 30 day, Stop date: 02/02/13 6:30:00 PO No Longer Active [facility] 01/04/2013 [facility] LEVOXY 50 MCG TABLET LEVOXY 50 MCG TABLET, 1 TABLET, Drug form: MISC, Route: PO, Q630AM, 01/04/13 6:30:00, Duration: 30 day, Stop date: 02/02/13 6:30:00 PO No Longer Active [facility] 01/04/2013 [facility] nitroglycerin 0.4 mg, 1 tab, Route: SL, Drug form: TAB, Q5Min, Dosing Weight 73, kg, PRN Chest Pain, Start date: 01/04/13 5:38:00, Duration: 30 day, Stop date: 02/03/13 5:37:00 SL No Longer Active [facility] 01/04/2013 [facility] docusate 100 mg, 1 cap, Route: PO, Drug form: CAP, BID, Dosing Weight 73, kg, PRN Constipation, Start date: 01/04/13 5:38:00, Duration: 30 day, Stop date: 02/03/13 5:37:00 PO No Longer Active [facility] 01/04/2013 [facility] FENOFIBRATE 145 MG TABLET FENOFIBRATE 145 MG TABLET, 1 TABLET, Drug form: MISC, Route: PO, Bedtime, 01/03/13 21:00:00, Duration: 30 day, Stop date: 02/01/13 21:00:00 PO No Longer Active [facility] 01/04/2013 [facility] LOSARTAN/HCT 100-25 TABLET LOSARTAN/HCT 100-25 TABLET, 1 TABLET, Drug form: MISC, Route: PO, Bedtime, 01/03/13 21:00:00, Duration: 30 day, Stop date: 02/01/13 21:00:00 PO No Longer Active [facility] 01/04/2013 [facility] TriCor 144 mg, 3 tab, Route: PO, Drug form: TAB, Bedtime, Dosing Weight 69.091, kg, Start date: 01/03/13 21:00:00, Duration: 30 day, Stop date: 02/01/13 21:00:00 PO No Longer Active [facility] 01/04/2013 [facility] Zetia 10 mg, 1 tab, Route: PO, Drug form: TAB, Bedtime, Dosing Weight 69.091, kg, Start date: 01/03/13 21:00:00, Duration: 30 day, Stop date: 02/01/13 21:00:00 PO No Longer Active [facility] 01/04/2013 [facility] aspirin 81 mg tablet, enteric coated 81 mg, 1 tab, Route: PO, Drug form: ECTAB, Bedtime, Dosing Weight 69.091, kg, Start date: 01/03/13 21:00:00, Duration: 30 day, Stop date: 02/01/13 21:00:00 PO No Longer Active [facility] 01/04/2013 [facility] hydrochlorothiazide-losartan 25 mg-100 mg oral tablet 2 tab, Route: PO, Drug Form: TAB, Dosing Weight 69.091, kg, Bedtime, Start date: 01/03/13 21:00:00, Duration: 30 day, Stop date: 02/01/13 21:00:00 PO No Longer Active [facility] 01/04/2013 [facility] ASPIRN EC 81 MG TABLET ASPIRN EC 81 MG TABLET, 1 TABLET, Drug form: MISC, Route: PO, Bedtime, 01/03/13 21:00:00, Duration: 30 day, Stop date: 02/01/13 21:00:00 PO No Longer Active [facility] 01/04/2013 [facility] niCARdipine 40 mg in NS 200 ml IV 40 mg 40 mg, 200 mL, Rate: Titrate, Dosing Weight 73, kg, Route: IV, Total Volume: 200 mL, Duration: 30 day, Stop date: 02/02/13 18:30:00, Replace Every: 24 hr IV No Longer Active [facility] 01/03/2013 [facility] pantoprazole 40 mg, 1 tab, Route: PO, Drug form: ECTAB, Before Dinner, Dosing Weight 69.091, kg, Start date: 01/03/13 16:30:00, Duration: 30 day, Stop date: 02/01/13 16:30:00 PO No Longer Active [facility] 01/03/2013 [facility] hydrochlorothiazide-losartan 25 mg-100 mg oral tablet 1 tab, PO, Daily, at bedtime, 30 tab, Substitution Allowed, Maintenance, TABat bedtime PO Active 01/03/2013 [facility] Omnicef 300 mg oral capsule 300 mg, 1 cap, Route: PO, Drug form: CAP, [id number], Dosing Weight 69.091, kg, Start date: 01/03/13 16:00:00, Duration: 30 day, Stop date: 02/02/13 4:00:00 PO No Longer Active [facility] 01/03/2013 [facility] magnesium sulfate 2 gm in Water 50 ml 2 gm, 50 mL, Route: IVPB, Drug form: INJ, ONCE, Dosing Weight 69.091, kg, Start date: 01/03/13 15:52:00, Duration: 2 hr, Stop date: 01/03/13 15:52:00 IVPB No Longer Active [facility] 01/03/2013 [facility] cefazolin (SCIP) + Sodium Chloride 0.9% IV 100 mL 1 gm, Route: IVPB, [id number], Dosing Weight 69.091, kg, Start date: 01/03/13 15:00:00, Duration: 3 doses or times, Stop date: 01/04/13 7:00:00 IVPB No Longer Active [facility] 01/03/2013 [facility] albuterol-ipratropium 2.5-0.5 mg inhalation solution 3 ml, Route: NEB, Drug Form: SOLN, Dosing Weight 69.091, kg, PRN, PRN Respiratory Protocol, Start date: 01/03/13 14:24:00, Duration: 30 day, Stop date: 02/02/13 14:23:00 NEB No Longer Active [facility] 01/03/2013 [facility] Xopenex 1.25 mg, Route: NEB, ONCE, Dosing Weight 69.091, kg, PRN Respiratory Protocol, Start date: 01/03/13 11:21:00, Stop date: 02/02/13 11:20:00 NEB No Longer Active [facility] 01/03/2013 [facility] ondansetron 4 mg, 2 mL, Route: IVP, Drug form: INJ, Q8H, Dosing Weight 69.091, kg, PRN Nausea & Vomiting, Start date: 01/03/13 9:55:00, Duration: 30 day, Stop date: 02/02/13 9:54:00 IVP No Longer Active [facility] 01/03/2013 [facility] promethazine 12.5 mg, 50 mL, Route: IVPB, Drug form: SOLN, Q6H, Dosing Weight 69.091, kg, PRN Nausea & Vomiting, Start date: 01/03/13 9:55:00, Duration: 30 day, Stop date: 02/02/13 9:54:00 IVPB No Longer Active [facility] 01/03/2013 [facility] nitroglycerin 0.4 mg, 1 tab, Route: SL, Drug form: TAB, Q5Min, Dosing Weight 69.091, kg, PRN Chest Pain, Start date: 01/03/13 9:55:00, Duration: 30 day, Stop date: 02/02/13 9:54:00 SL No Longer Active [facility] 01/03/2013 [facility] morphine Sulfate 2 mg, 1 mL, Route: IVP, Drug form: INJ, Q2H, Dosing Weight 69.091, kg, PRN Pain Score 1-5, Start date: 01/03/13 9:55:00, Duration: 30 day, Stop date: 02/02/13 9:54:00 IVP No Longer Active [facility] 01/03/2013 [facility] acetaminophen-hydrocodone 325 mg-5 mg oral tablet 1 tab, Route: PO, Drug Form: TAB, Dosing Weight 69.091, kg, Q4H, PRN Pain Score 1-3, Start date: 01/03/13 9:55:00, Duration: 30 day, Stop date: 02/02/13 9:54:00 PO No Longer Active [facility] 01/03/2013 [facility] Sodium Chloride 0.9% IV 1,000 mL 1,000 mL, Rate: 100 ml/hr, Infuse over: 10 hr, Route: IV, Dosing Weight 69.091 kg, Total Volume: 1,000, Start date: 01/03/13 9:55:00, Duration: 12 hr, Stop date: 01/03/13 21:54:00 IV No Longer Active [facility] 01/03/2013 [facility] cefazolin 1 gm, Route: IVPB, ONCE, Dosing Weight 69.091, kg, Start date: 01/03/13 9:39:00, Duration: 1 doses or times, Stop date: 01/03/13 9:39:00 IVPB No Longer Active [facility] 01/03/2013 [facility] flumazenil 0.2 mg, 2 mL, Route: IVP, Drug form: INJ, PRN, Dosing Weight 69.091, kg, PRN Benzodiazepine Reversal, Initial dose, Start date: 01/03/13 8:51:00, Duration: 8 hr, Stop date: 01/03/13 16:50:00 IVP No Longer Active [facility] 01/03/2013 [facility] morphine Sulfate 2 mg, 1 mL, Route: IVP, Drug form: INJ, Q5Min, Dosing Weight 69.091, kg, PRN Pain Score 4-6, Start date: 01/03/13 8:51:00, Duration: 5 doses or times, Stop date: Limited # of times IVP No Longer Active [facility] 01/03/2013 [facility] ondansetron 4 mg, 2 mL, Route: IVP, Drug form: INJ, ONCE, Dosing Weight 69.091, kg, PRN Nausea & Vomiting, Start date: 01/03/13 8:51:00 IVP No Longer Active [facility] 01/03/2013 [facility] naloxone 0.04 mg, 0.1 mL, Route: IVP, Drug form: INJ, Q2MIN, Dosing Weight 69.091, kg, PRN Narcotic Reversal, Start date: 01/03/13 8:51:00, Duration: 8 doses or times, Stop date: Limited # of times IVP No Longer Active [facility] 01/03/2013 [facility] NS 500 mL 500 mL, Rate: 30 ml/hr, Infuse over: 16.7 hr, Route: INTRAARTERIAL, Dosing Weight 69.091 kg, Total Volume: 500, Start date: 01/03/13 7:13:00, Duration: 12 hr, Stop date: 01/03/13 19:12:00 INTRAARTERIAL No Longer Active [facility] 01/03/2013 [facility] lidocaine 0.1 mL, Route: IV, Drug form: INJ, ONCALL, Start date: 01/03/13 5:00:00, Duration: 1 doses or times IV No Longer Active [facility] 01/03/2013 [facility] Lactated Ringers Injection IV 1,000 mL 1,000 mL, Rate: 100 ml/hr, Infuse over: 10 hr, Route: IV, Dosing Weight 69.091 kg, Total Volume: 1,000, Start date: 01/03/13 5:00:00, Duration: 1 doses or times, Stop date: 01/03/13 14:59:00 IV No Longer Active [facility] 01/03/2013 [facility] Omnicef 300 mg oral capsule 300 mg, 1 cap, PO, Q12H, 14 cap, Substitution Allowed, CAP PO No Longer Active [facility] 12/28/2012 [facility] aspirin 81 mg tablet, enteric coated 81 mg, 1 tab, PO, Daily, 0 tab, Substitution Allowed, ECTAB PO Active 12/28/2012 [facility] Zetia 10 mg oral tablet 10 mg, 1 tab, PO, Daily, 30 tab, Substitution Allowed, TAB PO Active 12/28/2012 [facility] TriCor 145 mg, PO, Daily, Substitution Allowed, TAB PO Active 12/28/2012 [facility] losartan 100 mg oral tablet 100 mg, 1 tab, PO, Daily, 30 tab, Substitution Allowed, TAB PO No Longer Active 12/28/2012 [facility] Levoxyl 50 mcg (0.05 mg) oral tablet 50 microgram, 1 tab, PO, Daily, 30 tab, Substitution Allowed, TAB PO Active 12/28/2012 [facility] pantoprazole 40 mg oral enteric coated tablet 40 mg, 1 tab, PO, Daily, 30 tab, Substitution Allowed, ECTAB PO Active 12/28/2012 [facility] amLODipine 5 mg, PO, Daily, Substitution Allowed, TAB PO Active 12/28/2012 [facility] metoprolol 100 mg oral tablet, extended release 100 mg, 1 tab, PO, Daily, 30 tab, Substitution Allowed PO Active 12/28/2012 [facility] Plavix 75 mg oral tablet 75 mg, 1 tab, PO, Daily, 30 tab, Substitution Allowed, TAB PO Active 12/28/2012 [facility] cefazolin + Sodium Chloride 0.9% IV 100 mL 1 gm, Route: IVPB, Drug form: PDR/INJ, ONCALL, Dosing Weight 64.545, kg, Start date: 12/28/12 11:00:00, Duration: 30 day, Stop date: 01/27/13 10:59:00 IVPB No Longer Active [facility] 12/28/2012 [facility] Sodium Chloride 0.9% (titrate) 250 mL 250 mL, Rate: company marker for use with blood product administration, Dosing Weight 64.545, kg, Route: IV, Total Volume: 250, Duration: 12 hr, Stop date: 12/28/12 22:59:00, Replace Every: 12 hr IV No Longer Active [facility] 12/28/2012 [facility] Sodium Chloride 0.9% IV 1,000 mL 1,000 mL, Rate: 125 ml/hr, Infuse over: 8 hr, Route: IV, Dosing Weight 64.545 kg, Total Volume: 1,000, Start date: 12/28/12 10:43:00, Duration: 30 day, Stop date: 01/27/13 10:42:00 IV No Longer Active [facility] 12/28/2012 [facility] Acetaminophen With Codeine (Tylenol With Codeine #3 Tablet) 1 Each Tablet Every [address] [facility] Amlodipine Besylate 5 Mg Tablet Twice A Day Active [facility] Aspirin (Aspir 81) 81 Mg Tablet.dr [place] Active [facility] Atorvastatin Calcium 10 Mg Tablet Today At 9:00PM [facility] B12 Daily Active [facility] Carvedilol (Coreg Cr*) 10 Mg Capcr Twice A Day [facility] Cholecalciferol (Vitamin D3) (Vitamin D) 1,000 Unit Tablet Daily [facility] Clonidine (Catapres-Tts 1) 1 Each Patch.tdwk [facility] Ezetimibe (Zetia) 10 Mg Tablet Mon, Wed, Fri [facility] Fenofibrate Nanocrystallized (Fenofibrate) 145 Mg Tablet Daily [facility] Irbesartan/Hydrochlorothiazide (Avalide 300-12.5 Mg Tablet) 1 Each Tablet Daily [facility] Levothyroxine Sodium (Synthroid) 50 Mcg Tab Today At 6:30AM [facility] Oxybutynin Chloride (Ditropan Xl) 5 Mg Tab.er.24 Three Times A Day for Overactive Bladder Active [facility] Pantoprazole Sodium (Protonix) 40 Mg Tablet.dr [place] [facility] Allergies, Adverse Reactions, Alerts No Known Medication Allergies Immunizations No Data Provided for This Section Results Order Name Results Value Reference Range Date Interpretation Comments Source Urine color determination YELLOW YELLOW 10/02/2018 [facility] Urine clarity CLEAR CLEAR 10/02/2018 [facility] Specific gravity of Urine by Test strip 1.010 1.010 - 1.025 10/02/2018 [facility] Urine pH measurement by automated test strip 8 5 - 7 10/02/2018 [facility] Urine leukocyte esterase detection by dipstick NEGATIVE NEGATIVE 10/02/2018 [facility] Urine nitrite detection NEGATIVE NEGATIVE 10/02/2018 [facility] Urine protein measurement by test strip (mass/volume) NEGATIVE NEGATIVE 10/02/2018 [facility] Urine glucose detection NEGATIVE NEGATIVE 10/02/2018 [facility] Urine ketones detection by automated test strip NEGATIVE NEGATIVE 10/02/2018 [facility] Urine urobilinogen measurement by test strip (mass/volume) 0.2 0.2 - 1 10/02/2018 [facility] Urine total bilirubin measurement (mass/volume) NEGATIVE NEGATIVE 10/02/2018 [facility] Urine erythrocytes detection 2+ NEGATIVE 10/02/2018 [facility] Automated urine sediment leukocyte count by microscopy (number/high power field) 0-5 0 - 5 10/02/2018 [facility] Erythrocytes detection in urine sediment by light microscopy 11-20 0 - 5 10/02/2018 [facility] Bacteria detection in urine sediment by light microscopy RARE NONE 10/02/2018 [facility] Epithelial cells detection in urine sediment by light microscopy RARE NONE 10/02/2018 [facility] Blood culture NO GROWTH AFTER 72 HOURS 10/02/2018 [facility] Blood leukocytes automated count (number/volume) 9.48 4.8 - 10.8 10/02/2018 [facility] Blood erythrocytes automated count (number/volume) 4.07 3.6 - 5.1 10/02/2018 [facility] Blood hemoglobin measurement (moles/volume) 10.9 12.0 - 16.0 10/02/2018 [facility] Automated blood hematocrit (volume fraction) 34.9 34.2 - 44.1 10/02/2018 [facility] Automated erythrocyte mean corpuscular volume 85.7 81 - 99 10/02/2018 [facility] Automated erythrocyte mean corpuscular hemoglobin (mass per erythrocyte) 26.8 28 - 32 10/02/2018 [facility] Automated erythrocyte mean corpuscular hemoglobin concentration measurement (mass/volume) 31.2 31 - 35 10/02/2018 [facility] RDW BldCo-Rto 15.6 11.7 - 14.4 10/02/2018 [facility] Automated blood platelet count (count/volume) 237 140 - 360 10/02/2018 [facility] Automated blood segmented neutrophil count as percentage of total leukocytes 80.4 38.7 - 80.0 10/02/2018 [facility] Automated blood lymphocyte count as percentage ot total leukocytes 9.3 18.0 - 39.1 10/02/2018 [facility] Automated blood monocyte count as percentage of total leukocytes 8.1 4.4 - 11.3 10/02/2018 [facility] Automated blood eosinophil count as percentage of total leukocytes 1.6 0.0 - 6.0 10/02/2018 [facility] Automated blood basophil count as percentage of total leukocytes 0.4 0.0 - 1.0 10/02/2018 [facility] IM GRANULOCYTES % 0.2 0.0 - 1.0 10/02/2018 [facility] Automated blood neutrophil count 7.6 2.1 - 6.9 10/02/2018 [facility] Blood lymphocytes count (number/volume) 0.9 1.0 - 3.2 10/02/2018 [facility] Blood monocytes automated count (number/volume) 0.8 0.2 - 0.8 10/02/2018 [facility] Automated blood eosinophil count 0.2 0.0 - 0.4 10/02/2018 [facility] Automated blood basophil count (count/volume) 0.0 0.0 - 0.1 10/02/2018 [facility] Absolute Immature Granulocyte (auto 0.02 0 - 0.1 10/02/2018 [facility] Prothrombin time (PT) in platelet poor plasma by coagulation assay 13.0 11.9 - 14.5 10/02/2018 [facility] INR in Platelet poor plasma by Coagulation assay 0.93 10/02/2018 [facility] Activated partial thromboplastin time (aPTT) in platelet poor plasma bycoagulation assay 28.1 23.8 - 35.5 10/02/2018 [facility] Serum or plasma sodium measurement (moles/volume) 136 136 - 145 10/02/2018 [facility] Serum or plasma potassium measurement (moles/volume) 4.1 3.5 - 5.1 10/02/2018 [facility] Serum or plasma chloride measurement (moles/volume) 102 98 - 107 10/02/2018 [facility] Serum or plasma carbon dioxide, total measurement (moles/volume) 25 22 - 29 10/02/2018 [facility] Serum or plasma anion gap 13.1 8 - 16 10/02/2018 [facility] Serum or plasma urea nitrogen measurement (mass/volume) 23 7 - 26 10/02/2018 [facility] Serum or plasma creatinine measurement (mass/volume) 0.71 0.57 - 1.11 10/02/2018 [facility] Serum or plasma urea nitrogen/creatinine mass ratio 31 6 - 25 10/02/2018 [facility] Estimated glomerular filtration rate (GFR) determination > 60 60 10/02/2018 [facility] Glucose measurement 127 74 - 118 10/02/2018 [facility] Serum or plasma calcium measurement (mass/volume) 9.8 8.4 - 10.2 10/02/2018 [facility] Lactic Acid Level 14.9 4.5 - 19.8 10/02/2018 [facility] Serum or plasma magnesium measurement (mass/volume) 1.7 1.3 - 2.1 10/02/2018 [facility] Serum or plasma total bilirubin measurement (mass/volume) 0.5 0.2 - 1.2 10/02/2018 [facility] Aspartate Amino Transf (AST/SGOT) 25 5 - 34 10/02/2018 [facility] Serum or plasma alanine aminotransferase measurement (enzymatic activity/volume) 13 0 - 55 10/02/2018 [facility] Serum or plasma protein measurement (mass/volume) 7.3 6.5 - 8.1 10/02/2018 [facility] Serum or plasma albumin measurement (mass/volume) 4.0 3.5 - 5.0 10/02/2018 [facility] Plasma globulin measurement (mass/volume) 3.1 2.3 - 3.5 10/02/2018 [facility] Serum or plasma albumin/globulin mass ratio 1.4 0.8 - 2.0 10/02/2018 [facility] Serum or plasma alkaline phosphatase measurement (enzymatic activity/volume) 64 40 - 150 10/02/2018 [facility] BNP Bld-mCnc 103.7 0 - 100 10/02/2018 [facility] Serum or plasma creatine kinase measurement (enzymatic activity/volume) 71 29 - 168 10/02/2018 [facility] Serum or plasma creatine kinase MB measurement (mass/volume) 2.00 0 - 5.0 10/02/2018 [facility] Troponin I measurement by highly sensitive enzyme immunoassay 0.006 0 - 0.300 10/02/2018 [facility] Serum or plasma lipase measurement (enzymatic activity/volume) 33 8 - 78 10/02/2018 [facility] BEDSIDE GLUCOSE TESTING Gluc POC Lifscn 137 70 - 99 01/04/2013 [place] <sup>2</sup>Interpretive Data: Upper Reportable Limit: 200 mg/dL. [facility] BEDSIDE GLUCOSE TESTING Comment1 Notify RN 01/04/2013 EL[facility] BEDSIDE GLUCOSE TESTING Gluc POC Lifscn 212 70 - 99 01/04/2013 [place] <sup>3</sup>Interpretive Data: Upper Reportable Limit: 200 mg/dL. [facility] BACTERIAL - SEROLOGY MRSA by PCR Negative 1 (01/03/2013 15:45:00) 01/03/2013 Normal <sup>1</sup>Interpretive Data: Interpretive Data: The [employer] MRSA [...] by the Molecular Diagnostic [facility] within the [facility]. The Molecular Diagnostic Laboratory is authorized under the Clinical Laboratory Improvement Amendment of 1988 (CLIA-88) to perform high complexity testing. [facility] BEDSIDE GLUCOSE TESTING Gluc POC Lifscn 128 70 - 99 01/03/2013 [place] <sup>4</sup>Interpretive Data: Upper Reportable Limit: 200 mg/dL. [facility] BLOOD BANK RESULTS ABO/Rh A POS 12/28/2012 Unknown [facility] BLOOD BANK RESULTS Antibody Scrn Negative (12/28/2012 11:15:00) 12/28/2012 Normal [facility] CHEMISTRY AGAP 12.8 10.0 - 20.0 12/28/2012 Normal [facility] CHEMISTRY eGFR 77 12/28/2012 NA <sup>5</sup>Result Comment: The eGFR is calculated using the CKD-EPI formula. In most young, healthy individuals the eGFR will be >90 mL/min/1.73m2. The eGFR declines with age. An eGFR of 60-89 may be normal in some populations, particularly the elderly, for whom the CKD-EPI formula has not been extensively validated. Use of the eGFR is not recommended in the following populations:& lt;br/>
Individuals with unstable creatinine concentrations, including patients [...] should be multiplied by the estimated BMI. [facility] CHEMISTRY Glucose Lvl 107 70 - 99 12/28/2012 [place] <sup>6</sup>Interpretive Data: Adult reference range values reflect the clinical guidelines
of the [place] [employer] [employer]. [facility] CHEMISTRY Potassium Lvl 4.8 3.5 - 5.1 12/28/2012 Normal [facility] CHEMISTRY Chloride Lvl 102 95 - 109 12/28/2012 Normal [facility] CHEMISTRY CO2 28 24 - 32 12/28/2012 Normal [facility] CHEMISTRY Calcium Lvl 10.0 8.5 - 10.5 12/28/2012 Normal [facility] CHEMISTRY Creatinine Lvl 0.8 0.5 - 1.4 12/28/2012 Normal [facility] CHEMISTRY Sodium Lvl 138 135 - 145 12/28/2012 Normal [facility] CHEMISTRY BUN 29 7 - 22 12/28/2012 [facility] CHEMISTRY Magnesium Lvl 1.7 1.8 - 2.4 12/28/2012 LOW [facility] CHEMISTRY Phosphorus 3.5 2.5 - 4.5 12/28/2012 Normal [facility] CHEMISTRY AST 40 0 - 37 12/28/2012 [facility] HEMATOLOGY Segs 80.9 45.0 - 75.0 12/28/2012 [facility] HEMATOLOGY Segs-Bands # 6.2 1.5 - 8.1 12/28/2012 Normal [facility] HEMATOLOGY Lymphocytes # 1.0 1.0 - 5.5 12/28/2012 Normal [facility] HEMATOLOGY Monocytes # 0.4 0.0 - 0.8 12/28/2012 Normal [facility] HEMATOLOGY Basophils # 0.0 0.0 - 0.2 12/28/2012 Normal [facility] HEMATOLOGY Eosinophils # 0.0 0.0 - 0.5 12/28/2012 Normal [facility] HEMATOLOGY Eosinophils 0.3 0.0 - 4.0 12/28/2012 Normal [facility] HEMATOLOGY Basophils 0.3 0.0 - 1.0 12/28/2012 Normal [facility] HEMATOLOGY Lymphocytes 13.5 20.0 - 40.0 12/28/2012 LOW [facility] HEMATOLOGY Monocytes 5.0 2.0 - 12.0 12/28/2012 Normal [facility] HEMATOLOGY PT 13.3 12.0 - 14.7 12/28/2012 Normal [facility] HEMATOLOGY INR 0.99 0.85 - 1.17 12/28/2012 Normal <sup>7</sup>Interpretive Data: RECOMMENDED RANGES FOR PROTIME INR:
2.0-3.0 for most medical and surgical thromboembolic states.
2.5-3.5 for artificial heart valves and recurrent embolism.

INR SHOULD BE USED ONLY FOR PATIENTS ON STABLE ANTICOAGULANT THERAPY. [facility] HEMATOLOGY PTT 27.4 22.9 - 35.8 12/28/2012 Normal <sup>8</sup>Interpretive Data: Heparin Therapeutic Range: 57 - 92 [facility] MCH 30.0 27.0 - 31.0 12/28/2012 Normal [facility] HEMATOLOGY RDW 14.1 11.5 - 14.5 12/28/2012 Normal [facility] MPV 9.3 7.4 - 10.4 12/28/2012 Normal [facility] Platelet 222 133 - 450 12/28/2012 Normal [facility] MCHC 32.3 32.0 - 36.0 12/28/2012 Normal [facility] HEMATOLOGY Hgb 13.0 12.0 - 16.0 12/28/2012 Normal [facility] HEMATOLOGY Hct 40.3 36.0 - 48.0 12/28/2012 Normal [facility] RBC 4.34 4.20 - 5.40 12/28/2012 Normal [facility] MCV 92.8 81.0 - 99.0 12/28/2012 Normal [facility] WBC 7.7 3.7 - 10.4 12/28/2012 Normal [facility] URINALYSIS UA WBC 0-2 /HPF (12/28/2012 11:15:00) None Seen 12/28/2012 Normal [facility] URINALYSIS UA Bacteria Occasional /HPF (12/28/2012 11:15:00) None Seen 12/28/2012 Normal [facility] URINALYSIS UA RBC None Seen (12/28/2012 11:15:00) 0 - 2 12/28/2012 Normal [facility] URINALYSIS UA Leuk Est Trace *ABN* (12/28/2012 11:15:00) Negative 12/28/2012 ABN [facility] URINALYSIS UA Nitrite Negative (12/28/2012 11:15:00) Negative 12/28/2012 Normal [facility] URINALYSIS UA Glucose Negative (12/28/2012 11:15:00) Negative 12/28/2012 Normal [facility] URINALYSIS UA Urobilinogen 0.2 0.1 - 1.0 12/28/2012 Normal [facility] URINALYSIS UA Bili Negative *NA* (12/28/2012 11:15:00) Negative 12/28/2012 NA [facility] URINALYSIS UA Ketones Negative *NA* (12/28/2012 11:15:00) Negative 12/28/2012 NA [facility] URINALYSIS UA Blood Negative (12/28/2012 11:15:00) Negative 12/28/2012 Normal [facility] URINALYSIS UA Sq Epi Occasional /LPF (12/28/2012 11:15:00) Few 12/28/2012 Normal [facility] URINALYSIS UA Turbidity Clear (12/28/2012 11:15:00) Clear 12/28/2012 Normal [facility] URINALYSIS UA Spec Grav 1.010 <=1.030 12/28/2012 Normal [facility] URINALYSIS UA Color STRAW 12/28/2012 NA [facility] URINALYSIS UA pH 6.0 5.0 - 8.0 12/28/2012 Normal [facility] URINALYSIS UA Protein Negative (12/28/2012 11:15:00) Negative 12/28/2012 Normal [facility] Microbiology Culture: MRSA 12/28/2012 [facility] Microbiology Culture: Urine 12/28/2012 [facility] CHEMISTRY FiO2 Art 21.0 12/28/2012 NA [facility] CHEMISTRY pH Art 7.40 7.35 - 7.45 12/28/2012 Normal [facility] CHEMISTRY BE Art 0 -2-2 - 2 12/28/2012 Normal [facility] CHEMISTRY HCO3 Art 25 22 - 26 12/28/2012 Normal [facility] CHEMISTRY pO2 Art 82 80 - 100 12/28/2012 Normal [facility] CHEMISTRY pCO2 Art 40 35 - 45 12/28/2012 Normal [facility] CHEMISTRY Mode Art Rm Air (12/28/2012 11:10:24) 12/28/2012 Normal [facility] CHEMISTRY Allens Art Positive (12/28/2012 11:10:24) 12/28/2012 Normal [facility] CHEMISTRY Temp Art 37.0 12/28/2012 NA [facility] CHEMISTRY Site Art Left Rad (12/28/2012 11:10:24) 12/28/2012 Normal [facility] CHEMISTRY O2 Sat Art 96.0 95.0 - 100.0 12/28/2012 Normal [facility] Bacterial urine culture Urine Culture [facility] Pathology Reports No Data Provided for This Section Diagnostic Reports Report Value Date Source Spine lumbar wo contrast MRI MRI LUMBAR [...] Chronic T12 mild vertebral compression fracture. 02/18/2015 [facility] [place] Spine lumbar series DX EXAM: 5 view(s) [...] consider MRI. 2. Multilevel lumbar spondylosis. 08/16/2014 [facility] [place] Sacroiliac joints series DX EXAMINATION: Sacroiliac joint [...] 2. Severe L5-S1 degenerative disc disease. 08/16/2014 [facility] [place] Digital Mammo Screening Joaquin MA - DIGITAL MAMMO SCREENING JOAQUIN MA BILATERAL DIGITAL SCREENING MAMMOGRAM WITH CAD: [...] Dr. Lester De Leon M.D. eoc/penrad:07/09/2014 15:25:21 [employer] Machine Clerk: Billie Riddle RT(R)(M), [facility] This exam was dictated and interpreted by [id number] for Yayo Ryder. letter sent: Normal exam Mammogram BI-RADS: 1 Negative [facility] [place] [facility] NAME: SARAH BETH GRAHAM : [...] of acute cardiopulmonary disease. SL: 23 12/28/2012 [facility] Consultation Notes No Data Provided for This Section Discharge Summaries No Data Provided for This Section History and Physicals No Data Provided for This Section Vital Signs Vital Sign Value Date Comments Source Diastolic (mm Hg) 60 01/04/2013 [facility] Systolic (mm Hg) 112 01/04/2013 [facility] Respitory Rate 20 01/04/2013 [facility] Diastolic (mm Hg) 40 01/04/2013 [facility] Systolic (mm Hg) 119 01/04/2013 [facility] Respitory Rate 30 01/04/2013 [facility] Diastolic (mm Hg) 40 01/04/2013 [facility] Respitory Rate 22 01/04/2013 [facility] Systolic (mm Hg) 119 01/04/2013 [facility] Temperature Oral (F) 97.4 F 01/04/2013 [facility] Temperature Oral (F) 97.6 F 01/04/2013 [facility] Temperature Oral (F) 97.5 F 01/04/2013 [facility] Weight 73 01/03/2013 [facility] Height 162.56 cm 01/03/2013 [facility] Heart Rate 55 01/03/2013 [facility] Heart Rate 63 01/03/2013 [facility] Heart Rate 65 12/28/2012 [facility] Weight 69.091 12/28/2012 [facility] Height 162.56 cm 12/28/2012 [facility] Encounters Location Location Details Encounter Type Encounter Number Reason For Visit Attending Provider ADM Date DC Date Status Source Not Sent Inpatient [id number] 443.10 VALERY NIEVES 01/03/2013 01/04/2013 [facility] [place] [facility] [id number] Leann Goodine 07/03/2014 07/04/2014 [facility] [place] [facility] [place] [facility] [id number] Leann Goodine 08/16/2014 08/17/2014 [facility] [place] [facility] [place] [facility] [id number] Leann Goodine 02/18/2015 02/19/2015 [facility] [place] Discharged Inpatient [id number] BRITNEY WALTERS MD 10/02/2018 10/05/2018 [facility] Procedures Procedure Code Date Perfomer Comments Source Cystoscopy with retrograde pyelography [id number] 10/05/2018 [facility] CT of abdomen and pelvis without contrast [id number] 10/05/2018 [facility] Computed tomography of abdomen and pelvis with contrast [id number] 10/02/[address] [facility] Angioplasty of subclavian artery [id number] [facility] [place] Appendectomy [id number] [facility] [place] Arthrectomy [id number] [facility] [place] Bunionectomy [id number] [facility] [place] Cataract [id number] [facility] [place] Femoral-popliteal artery bypass graft<sup>1</sup> [id number] 2012 [facility] [place] History of - hysterectomy [id number] [facility] [place] History of tonsillectomy [id number] [facility] [place] Angioplasty of subclavian artery [id number] [facility] [id number] [facility] Arthrectomy [id number] [facility] Bunionectomy [id number] [facility] Cataract [facility] Femoral-popliteal artery bypass graft <sup>1</sup> [id number] [facility] History of - hysterectomy [id number] [facility] History of tonsillectomy [id number] [facility] Assessment and Plan No Data Provided for This Section Plan of Care Plan of Care Date Source Discharge Date 10/05/18 6:50pm Disposition HOME, SELF-CARE Instructions/Education Provided Hematuria - Female Kidney Stones Post Operative Pain Prescriptions See Medication Section Additional Instructions/Education FOLLOW-UP WITH PCP DR REVELES FOLLOW-UP WITH UROLOGY DR BARRAGAN IN 3 WEEKS. Penicillin UK 500mg PO three times a day. Buy AZO OTC and take 3 times a day. No heavy lifting. Continue home meds. 10/05/2018 [facility] Social History Social History Date Source Smoking Status Start Date Stop Date Current some day smoker 10/05/2018 [facility] Social History TypeResponse 02/19/2015 AL[facility] Castanon Family History No Data Provided for This Section Advance Directives Order Name Results Value Date Source Advance Directives Advance Directives Directive Response Recorded Date/Time Does the patient have an advance directive? Yes 10/02/18 10:15pm If yes, is advance directive on file with [facility]? No 10/02/18 10:15pm If not on file with [facility] will patient provide a copy? Yes 10/02/18 10:15pm Do you have a Directive to Physician? Yes 10/02/18 12:03pm Do you have a Medical Power of Dye Lab Technician? Yes 10/02/18 12:03pm Do you have an out of hospital Do Not Resuscitate Order? Yes 10/02/18 12:03pm Do you have any special needs we should be aware of? No 10/02/18 12:03pm Do you have a support person here with you today? Yes 10/02/18 12:03pm Did patient receive Notice of Privacy Practices? Yes 10/02/18 12:03pm Did patient receive patient rights and responsibilities? Yes 10/02/18 12:03pm 10/05/2018 [facility] Functional Status No Data Provided for This Section
--- NOTE | 2018-12-23 13:38 | Diagnostic Imaging Report ---
Exam: Abdominal film Clinical History: Renal stones Comparison: 11/16/2018 DISCUSSION: As before, a 5 mm calculus projects over the right renal shadow. 6 mm left lower pole calculus described on the comparison study is less conspicuous, possibly related to overlying bowel contents. Left internal ureteral stent is unchanged in position. Bowel gas pattern is nonobstructive. Regional skeletal structures are intact with degenerative disc changes of the lumbar spine and slight dextroscoliotic curvature.. Right pelvic surgical clips are again noted. Right common iliac arterial stent unchanged. IMPRESSION: Unchanged appearance of 5 mm right renal calculus. Left lower pole renal calculus described on the comparison study is less conspicuous, which may relate to overlying bowel contents. Signed by: Dr. Luther Aragon M.D. on 12/23/2018 1:35 PM
[2018-12-23 15:47] VITALS: BP 136/54
--- NOTE | 2019-02-10 03:25 | Operative Report ---
DATE OF PROCEDURE: 12/23/2018 SURGEON: Hong Saba MD PREOPERATIVE DIAGNOSES: 1. Left nephrolithiasis. 2. Left indwelling ureteral stent. POSTOPERATIVE DIAGNOSES: 1. Left nephrolithiasis. 2. Left indwelling ureteral stent. 3. Grade 2 cystocele. 4. Grade 3 rectocele. 5. Atrophic (senile) vaginitis. OPERATION PERFORMED: Note, these were all staged procedures as part of multi-stage, multi-step process of managing the patient's urolithiasis. 1. Cystourethroscopy with complicated removal of left indwelling ureteral stent (separate procedure performed for the diagnosis of stent, done with separate scope). 2. Left ureteroscopy with stone manipulation and extraction (separate procedure performed for the left nephrolithiasis). 3. Urological Services for supervision and interpretation of ureteroscopy, no radiologist present. 4. Interpretation of retrograde ureteropyelography. 5. Pelvic examination under anesthesia. ANESTHESIA: General. COMPLICATIONS: None. CLINICAL SUMMARY: Ping Lockhart is a 73-year-old woman with left nephrolithiasis. She is status post prior surgery. She was brought to the operating room in hopes of rendering her stone free and stent free. She is aware of the risks of bleeding, infection, injury to adjacent structures, need for additional procedures, as well as need for ongoing urological followup, and she elected to proceed. OPERATIVE PROCEDURE IN DETAIL: Informed consent was verified. Ping Lockhart was properly identified, taken to the operating room, placed on the cystoscopy table in supine position. Anesthesia was uneventfully begun. The patient was then carefully and gently repositioned in the dorsal lithotomy position. All pressure points were padded. Her genitalia were prepared and draped in usual sterile fashion. The cystoscope sheath with obturator in place was atraumatically inserted in the patient's urethra and bladder was drained. Panendoscopy revealed a stent emerging from the left ureteral orifice. The stent was minimally encrusted. A guidewire was then placed alongside the stent and guided to the level of the patient's kidney. The stent was then grasped, completely removed, and discarded. A semi-rigid ureteroscope was then placed alongside the guidewire and guided into the distal left ureter. Contrast was injected within the ureter. We did not note any stones nor filling defects with the rigid scope. We then withdrew that scope and passed a flexible ureteroscope up to the level of the patient's kidney under fluoroscopic guidance. 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 There was stone noted within the kidney. No additional significant stone burden was identified. We grasped the stone that we visualized and extracted it atraumatically utilizing Nitinol tipless basket. We carefully re-examined the ureter. As we exited, it exhibited no strictures, no stones, no diverticula, no suspicious lesions. Interpretation of retrograde ureteropyelography contrast was instilled in a retrograde fashion by the ureteroscope. There was minimal fullness of the left side collecting system. No obvious filling defects could be appreciated. There was no hydronephrosis. Unobstructed drainage was observed fluoroscopically. The ureter was unremarkable. The patient's bladder was drained. Cystoscope was withdrawn. Pelvic examination revealed a grade 2 cystocele and grade 3 rectocele. There was atrophic (senile) vaginitis. The patient was then uneventfully reversed from anesthesia and taken to recovery in stable condition. Explicit postop instructions were given. We will follow the patient in the office. Hong Saba MD [place]/MODL /[id number] cc: Leann Finnegan
== END | disposition home or self-care (01) ==
LOC: OR 12:00
PROVIDERS: ATTEND Urology
DX: N20.0 Calculus of kidney (principal); N20.1 Calculus of ureter; Z46.6 Encounter for fitting and adjustment of urinary device; R35.1 Nocturia; N32.81 Overactive bladder; R39.14 Feeling of incomplete bladder emptying; N28.1 Cyst of kidney, acquired; N39.46 Mixed incontinence; N28.89 Other specified disorders of kidney and ureter; N81.10 Cystocele, unspecified; N81.6 Rectocele; N95.2 Postmenopausal atrophic vaginitis; E03.9 Hypothyroidism, unspecified; I25.10 Atherosclerotic heart disease of native coronary artery without angina pectoris; I11.0 Hypertensive heart disease with heart failure; I50.9 Heart failure, unspecified; J44.9 Chronic obstructive pulmonary disease, unspecified; F17.210 Nicotine dependence, cigarettes, uncomplicated; Z79.82 Long term (current) use of aspirin; Z95.5 Presence of coronary angioplasty implant and graft
CPT/HCPCS: 52352; 74420; 88300; J0461; J0696; J1100; J2001; J2250; J2405; J2704; Q9967; 74018; J3010

== ENCOUNTER → 2024-04-12 | Outpatient (REF) | payer MEDICARE, OTHER ==
[~2024-04-12] MED LIST changes: -ATROPINE SULFATE 1 MG/ML VIAL ONE; -B&O 60MG R/S 60 MG SUPP PR ONE; -CEFTRIAXONE SOD 1 GM/NS 50 ML 50 ML IV ONE; -DEXAMETHASONE SOD PHOS INJ 4 MG/ML VIAL ONE; -EPHEDRINE SULFATE INJ 50 MG/10 ML SYR ONE; -FENTANYL CITRATE/PF 100MCG/2 ML INJ ONE; +HYDROCHLOROTHIA25 MG PO; -IOPAMIDOL 610MG/1ML 300 MG/ML VIAL IV ONE; +IRBESARTAN150 MG PO; +LEVOCETIRIZINE D5 MG PO; -LIDOCAINE HCL 2% LOCAL INJ 5 ML SDV VIAL INJ ONE; -MIDAZOLAM HCL 2 MG/2 ML VIAL ONE; -ONDANSETRON HCL INJ 2MG/ML 2ML 2 MG/ML VIAL ONE; +PLAVIX75 MG PO; -PROPOFOL IV EMULSION 10 MG/ML 20 ML VIAL ONE; -SEVOFLURANE INHAL SOLN 250 ML PEN BTL ONE; +TRICOR48 MG PO; +TYLENOL325 MG PO; +VITAMIN B-121000 MCG PO; +VITAMIN D325 MCG PO
== END ==
LOC: CT 15:27
PROVIDERS: ATTEND Urology
DX: N20.0 Calculus of kidney (principal)
CPT/HCPCS: 74176

== ENCOUNTER 2024-04-13 13:06 | Inpatient (IN) | payer MEDICARE, OTHER ==
[2024-04-13] VITALS (7 sets, daily range): BP systolic 129–164; BP diastolic 50–51; PULSE 47–72; RESP 16–18; TEMP 97.5–98.1; O2SAT 96–100
[~2024-04-13] VITALS: Ht 162.6 cm; Wt 60.8 kg
[~2024-04-13 13:06] MED LIST changes: -HYDROCHLOROTHIA25 MG PO; -IRBESARTAN150 MG PO; -LEVOCETIRIZINE D5 MG PO; -PLAVIX75 MG PO; -TRICOR48 MG PO; -TYLENOL325 MG PO; -VITAMIN B-121000 MCG PO; -VITAMIN D325 MCG PO
[2024-04-13 15:11] LABS: BASOPHILS % 0.4 % (0.0-1.0); EOSINOPHILS # (AUTO) 0.1 (0.0-0.4); EOSINOPHILS % 2.6 % (0.0-6.0); HEMOGLOBIN 12.5 g/dL (12.0-16.0); LYMPHOCYTES # (AUTO) 0.8 (1.0-3.2); LYMPHOCYTES % 16.4 % (18.0-39.1); MEAN CORPUSCULAR HEMOGLOBIN 31.6 pg (28-32); MEAN CORPUSCULAR HGB CONC 32.9 g/dL (31-35); MONOCYTES # (AUTO) 0.5 (0.2-0.8); NEUTROPHILS # (AUTO) 3.5 (2.1-6.9); NEUTROPHILS % 70.4 % (38.7-80.0); PLATELET COUNT 280 x10e3/uL (140-360); RED BLOOD COUNT 3.96 x10e6/uL (3.6-5.1); RED CELL DISTRIBUTION WIDTH 13.2 % (11.7-14.4); WHITE BLOOD COUNT 4.99 x10e3/uL (4.8-10.8)
[2024-04-13] MEDS: ONDANSETRON HCL INJ 2MG/ML 2ML 2 MG/ML VIAL IV PRN (15:12)
[2024-04-13 15:13] LABS: BILIRUBIN,URINE NEGATIVE (NEGATIVE); CLARITY,URINE CLEAR (CLEAR); COLOR,URINE YELLOW (YELLOW); GLUCOSE, URINE NEGATIVE (NEGATIVE); KETONES,URINE NEGATIVE (NEGATIVE); LEUKOCYTE ESTERASE ,URINE TRACE (NEGATIVE); NITRITE,URINE NEGATIVE (NEGATIVE); PH,URINE 7 (5 - 7); PROTEIN,URINE DIPSTICK NEGATIVE (NEGATIVE); URINE UROBILINOGEN 0.2 mg/dL (0.2 - 1)
[2024-04-13] MEDS: Morphine 4mg INJECTION 4 MG/ML INJ IV PRN (15:13)
[2024-04-13 15:25] LABS: BACTERIA,URINE FEW /HPF; TRANSITIONAL EPI CELLS,URINE FEW; WBC,URINE (MAN) 0-5 /HPF (0-5)
[2024-04-13 15:27] LABS: ALBUMIN 4.2 g/dL (3.5-5.0); ALBUMIN/GLOBULIN RATIO 1.3 (0.8-2.0); ANION GAP 12.9 mmol/L (8-16); BILIRUBIN,TOTAL 0.4 mg/dL (0.2-1.2); CALCIUM 10.4 mg/dL (8.4-10.2); CREATININE, SERUM 0.71 mg/dL (0.57-1.11); POTASSIUM 3.9 mmol/L (3.5-5.1); TOTAL PROTEIN 7.4 g/dL (6.5-8.1)
[2024-04-13] MEDS ORDERED: ACETAMINOPHEN 325 MG TAB PO PRN (16:00)
[2024-04-13] MEDS ORDERED: VITAMIN B-121000 MCG PO (18:46)
[2024-04-13] MEDS ORDERED: HYDROCHLOROTHIA25 MG PO (18:46)
[2024-04-13] MEDS ORDERED: PLAVIX75 MG PO (18:46)
[2024-04-13] MEDS ORDERED: VITAMIN D325 MCG PO (18:46)
[2024-04-13] MEDS ORDERED: ZETIA10 MG PO (18:46)
[2024-04-13] MEDS ORDERED: TRICOR48 MG PO (18:46)
[2024-04-13] MEDS ORDERED: CATAPRES-TTS 11 EACH TD (18:46)
[2024-04-13] MEDS ORDERED: IRBESARTAN150 MG PO (18:46)
[2024-04-13] MEDS ORDERED: TYLENOL325 MG PO (18:50)
[2024-04-13] MEDS ORDERED: LEVOCETIRIZINE D5 MG PO (18:52)
[2024-04-13] MEDS ORDERED: INFLUENZA VIRUS VAC SPLIT INJ 0.5 ML SYR IM SCH (18:55)
[2024-04-13] MEDS: KETOROLAC TROMETHAMINE 30 MG/ML VIAL IV STA (19:29)
[2024-04-13] MEDS: AMLODIPINE BESYLATE 5 MG TAB PO SCH (19:33)
[2024-04-13] MEDS: CARVEDILOL 12.5 MG TAB PO SCH (19:34)
[2024-04-13] MEDS: SODIUM CHLORIDE 0.9% 1000ML 1,000 ML IV SCH (19:34)
[2024-04-13] MEDS: ATORVASTATIN 10 MG TAB PO SCH (21:02)
[2024-04-14] VITALS (9 sets, daily range): BP systolic 106–174; BP diastolic 44–61; PULSE 50–67; RESP 17–18; TEMP 97.3–97.9; O2SAT 95–100
[2024-04-14] MEDS: LEVOTHYROXINE SODIUM 50 MCG TAB PO SCH (05:37)
[2024-04-14 05:57] LABS: BASOPHILS % 0.5 % (0.0-1.0); EOSINOPHILS # (AUTO) 0.1 (0.0-0.4); EOSINOPHILS % 2.4 % (0.0-6.0); HEMATOCRIT 35.1 % (34.2-44.1); HEMOGLOBIN 11.5 g/dL (12.0-16.0); LYMPHOCYTES % 24.3 % (18.0-39.1); MEAN CORPUSCULAR HEMOGLOBIN 31.3 pg (28-32); MEAN CORPUSCULAR HGB CONC 32.8 g/dL (31-35); MEAN CORPUSCULAR VOLUME 95.4 fL (81-99); MONOCYTES # (AUTO) 0.5 (0.2-0.8); MONOCYTES % 11.4 % (4.4-11.3); NEUTROPHILS # (AUTO) 2.5 (2.1-6.9); NEUTROPHILS % 60.9 % (38.7-80.0); PLATELET COUNT 247 x10e3/uL (140-360); RED BLOOD COUNT 3.68 x10e6/uL (3.6-5.1); RED CELL DISTRIBUTION WIDTH 13.2 % (11.7-14.4); WHITE BLOOD COUNT 4.12 x10e3/uL (4.8-10.8)
[2024-04-14 06:22] LABS: ANION GAP 14.1 mmol/L (8-16); CALCIUM 9.5 mg/dL (8.4-10.2); CREATININE, SERUM 0.62 mg/dL (0.57-1.11); POTASSIUM 4.1 mmol/L (3.5-5.1)
[2024-04-14] MEDS ORDERED: IOPAMIDOL 610MG/1ML 300 MG/ML VIAL IV ONE (06:45)
[2024-04-14] MEDS: PANTOPRAZOLE SOD 40 MG TABEC PO SCH (07:50)
[2024-04-14] MEDS ORDERED: ACETAMINOPHEN 1000 MG/100 ML 100 ML IV ONE (08:37)
[2024-04-14] MEDS: KETOROLAC TROMETHAMINE 30 MG/ML VIAL IV PRN (10:06)
[2024-04-14] MEDS: CEFTRIAXONE 1 GM VIAL ONE (10:09)
[2024-04-14] MEDS: HYDRALAZINE HCL 20 MG/ML VIAL IV PRN (12:12)
[2024-04-14] MEDS ORDERED: ONDANSETRON HCL INJ 2MG/ML 2ML 2 MG/ML VIAL ONE (13:35)
[2024-04-14] MEDS ORDERED: SEVOFLURANE INHAL SOLN 250 ML PEN BTL ONE (13:35)
[2024-04-14] MEDS ORDERED: LIDOCAINE HCL 2% LOCAL INJ 5 ML SDV VIAL INJ ONE (13:35)
[2024-04-14] MEDS ORDERED: GLYCOPYRROLATE INJ 0.2 MG/ML VIAL ONE (13:35)
[2024-04-14] MEDS ORDERED: PROPOFOL IV EMULSION 10 MG/ML 20 ML VIAL ONE (13:35)
[2024-04-14] MEDS ORDERED: DEXAMETHASONE SOD PHOS INJ 4 MG/ML SDV ONE (13:35)
[2024-04-14] MEDS ORDERED: EPHEDRINE SULFATE INJ 50 MG/ML VIAL ONE (13:35)
[2024-04-14] MEDS: HYDROCODONE/APAP 10MG-325MG TAB PO PRN (13:55)
[2024-04-14] MEDS ORDERED: FENTANYL CITRATE/PF 100MCG/2 ML INJ ONE (15:22)
[2024-04-14] MEDS: ASPIRIN 81 MG CHEW TAB PO SCH (17:45)
[2024-04-15 01:25] VITALS: BP 164/55; PULSE 73; RESP 18; TEMP 97.8; O2SAT 95
[2024-04-15 04:43] VITALS: BP 146/57; PULSE 70; RESP 18; TEMP 98.3; O2SAT 96
[2024-04-15 06:31] LABS: BASOPHILS % 0.1 % (0.0-1.0); EOSINOPHILS % 0.3 % (0.0-6.0); HEMATOCRIT 35.9 % (34.2-44.1); HEMOGLOBIN 11.8 g/dL (12.0-16.0); LYMPHOCYTES # (AUTO) 1.1 (1.0-3.2); MEAN CORPUSCULAR HEMOGLOBIN 31.5 pg (28-32); MEAN CORPUSCULAR HGB CONC 32.9 g/dL (31-35); MEAN CORPUSCULAR VOLUME 95.7 fL (81-99); MONOCYTES # (AUTO) 0.7 (0.2-0.8); NEUTROPHILS # (AUTO) 5.5 (2.1-6.9); NEUTROPHILS % 75.2 % (38.7-80.0); PLATELET COUNT 265 x10e3/uL (140-360); RED BLOOD COUNT 3.75 x10e6/uL (3.6-5.1); RED CELL DISTRIBUTION WIDTH 13.6 % (11.7-14.4); WHITE BLOOD COUNT 7.32 x10e3/uL (4.8-10.8)
[2024-04-15 07:13] LABS: ANION GAP 12.7 mmol/L (8-16); CALCIUM 9.7 mg/dL (8.4-10.2); CREATININE, SERUM 0.61 mg/dL (0.57-1.11); POTASSIUM 3.7 mmol/L (3.5-5.1)
[2024-04-15 07:43] LABS: CHOL/HDL RATIO 3.1 (3.0-3.6)
[2024-04-15 08:00] VITALS: BP 146/57; PULSE 62; RESP 20; TEMP 97.9; O2SAT 100
[2024-04-15 08:04] LABS: THYROID STIMULATING HORMONE 0.697 uIU/mL (0.350-4.940)
[2024-04-15 08:35] VITALS: BP 146/42; PULSE 62; RESP 20; TEMP 97.9; O2SAT 100
[2024-04-15] MEDS: IRBESARTAN 150 MG TAB PO SCH (09:21)
[2024-04-15 11:56] VITALS: BP 154/44; PULSE 55; RESP 20; TEMP 97.8; O2SAT 97
== END 2024-04-15 12:55 | disposition home or self-care (01) | DRG 660 ==
LOC: ER 13:14 → ERHOLD 14:01 → MED/SURG3 17:25
PROVIDERS: ADMIT Internal Medicine; ATTEND Internal Medicine
PROC: 0T768DZ Dilation of Right Ureter with Intraluminal Device, Via Natural or Artificial Opening Endoscopic (ICD-10-PCS; principal; 2024-04-14 08:33)
PROC: BT161ZZ Fluoroscopy of Right Ureter using Low Osmolar Contrast (ICD-10-PCS; 2024-04-14 08:33)
DX: N13.6 Pyonephrosis (principal); E87.1 Hypo-osmolality and hyponatremia; N04.9 Nephrotic syndrome with unspecified morphologic changes; B96.5 Pseudomonas (aeruginosa) (mallei) (pseudomallei) as the cause of diseases classified elsewhere; R31.9 Hematuria, unspecified; N23 Unspecified renal colic; I11.0 Hypertensive heart disease with heart failure; J44.9 Chronic obstructive pulmonary disease, unspecified; I50.9 Heart failure, unspecified; R31.29 Other microscopic hematuria; E83.52 Hypercalcemia; I73.9 Peripheral vascular disease, unspecified; Z95.820 Peripheral vascular angioplasty status with implants and grafts; Z90.710 Acquired absence of both cervix and uterus; Z79.82 Long term (current) use of aspirin; Z79.02 Long term (current) use of antithrombotics/antiplatelets; Z79.890 Hormone replacement therapy; Z95.1 Presence of aortocoronary bypass graft; Z90.49 Acquired absence of other specified parts of digestive tract; F17.210 Nicotine dependence, cigarettes, uncomplicated
CPT/HCPCS: 36415; 74420; 80048; 80053; 80061; 81001; 83036; 84443; 85025; 87086; 87186; 94799; 99284; C1758; C2617; J0360; J0696; J1100; J1885; J2003; J2270; J2405; J7030

== ENCOUNTER → 2024-05-17 | Day surgery (SDC) | payer MEDICARE, OTHER ==
[2024-05-16 12:39] LABS: BASOPHILS % 0.4 % (0.0-1.0); EOSINOPHILS # (AUTO) 0.1 (0.0-0.4); EOSINOPHILS % 2.5 % (0.0-6.0); HEMATOCRIT 37.4 % (34.2-44.1); HEMOGLOBIN 11.9 g/dL (12.0-16.0); LYMPHOCYTES # (AUTO) 0.9 (1.0-3.2); LYMPHOCYTES % 19.1 % (18.0-39.1); MEAN CORPUSCULAR HEMOGLOBIN 31.2 pg (28-32); MEAN CORPUSCULAR HGB CONC 31.8 g/dL (31-35); MEAN CORPUSCULAR VOLUME 97.9 fL (81-99); MONOCYTES # (AUTO) 0.5 (0.2-0.8); MONOCYTES % 10.8 % (4.4-11.3); PLATELET COUNT 224 x10e3/uL (140-360); RED BLOOD COUNT 3.82 x10e6/uL (3.6-5.1); RED CELL DISTRIBUTION WIDTH 13.2 % (11.7-14.4); WHITE BLOOD COUNT 4.46 x10e3/uL (4.8-10.8)
[2024-05-16 12:57] LABS: ANION GAP 11.5 mmol/L (8-16); CALCIUM 10.1 mg/dL (8.4-10.2); CREATININE, SERUM 0.68 mg/dL (0.57-1.11); POTASSIUM 4.5 mmol/L (3.5-5.1)
[~2024-05-17] MED LIST changes: +ACETAMINOPHEN 1000 MG/100 ML 100 ML IV ONE; +DEXAMETHASONE SOD PHOS INJ 4 MG/ML SDV ONE; +EPHEDRINE SULFATE INJ 50 MG/ML VIAL ONE; +FAMOTIDINE 20 MG/2 ML VIAL IV ONE; +FENTANYL CITRATE/PF 100MCG/2 ML INJ ONE; +GLYCOPYRROLATE INJ 0.2 MG/ML VIAL ONE; +HYDROCHLOROTHIA25 MG PO; +IRBESARTAN150 MG PO; +LEVOCETIRIZINE D5 MG PO; +LIDOCAINE HCL 2% LOCAL INJ 5 ML SDV VIAL INJ ONE; +ONDANSETRON HCL INJ 2MG/ML 2ML 2 MG/ML VIAL ONE; +PLAVIX75 MG PO; +PROPOFOL IV EMULSION 10 MG/ML 20 ML VIAL ONE; +TRICOR48 MG PO; +TYLENOL325 MG PO; +VITAMIN B-121000 MCG PO; +VITAMIN D325 MCG PO
[2024-05-17] MEDS: LACTATED RINGER'S 1,000 ML ONE (06:49)
[2024-05-17] MEDS: CEFTRIAXONE 1 GM VIAL ONE (06:49)
[2024-05-17 10:53] VITALS: TEMP 97.7
[2024-05-17 11:40] VITALS: BP 145/60; PULSE 71; RESP 18; O2SAT 95
== END | disposition home or self-care (01) ==
LOC: OR 05:33
PROVIDERS: ATTEND Urology
DX: N20.0 Calculus of kidney (principal); Z96.0 Presence of urogenital implants; N32.81 Overactive bladder; R35.1 Nocturia; I10 Essential (primary) hypertension; E03.9 Hypothyroidism, unspecified; I25.10 Atherosclerotic heart disease of native coronary artery without angina pectoris; E78.5 Hyperlipidemia, unspecified; J44.9 Chronic obstructive pulmonary disease, unspecified; M06.9 Rheumatoid arthritis, unspecified; F17.200 Nicotine dependence, unspecified, uncomplicated; Z79.02 Long term (current) use of antithrombotics/antiplatelets; Z79.899 Other long term (current) drug therapy; Z95.5 Presence of coronary angioplasty implant and graft
CPT/HCPCS: 36415; 50590; 71046; 74018; 80048; 85025; 93005; J0131; J0696; J1100; J2003; J2405; J2704; J3010; J7121

== ENCOUNTER → 2024-07-21 | Day surgery (SDC) | payer MEDICARE, OTHER ==
[2024-07-20 11:39] LABS: BASOPHILS % 0.6 % (0.0-1.0); EOSINOPHILS # (AUTO) 0.1 (0.0-0.4); EOSINOPHILS % 2.2 % (0.0-6.0); HEMATOCRIT 38.2 % (34.2-44.1); HEMOGLOBIN 11.6 g/dL (12.0-16.0); LYMPHOCYTES # (AUTO) 0.9 (1.0-3.2); LYMPHOCYTES % 17.1 % (18.0-39.1); MEAN CORPUSCULAR HEMOGLOBIN 30.4 pg (28-32); MEAN CORPUSCULAR HGB CONC 30.4 g/dL (31-35); MONOCYTES # (AUTO) 0.5 (0.2-0.8); MONOCYTES % 9.9 % (4.4-11.3); NEUTROPHILS # (AUTO) 3.8 (2.1-6.9); NEUTROPHILS % 69.8 % (38.7-80.0); PLATELET COUNT 203 x10e3/uL (140-360); RED BLOOD COUNT 3.82 x10e6/uL (3.6-5.1); RED CELL DISTRIBUTION WIDTH 12.9 % (11.7-14.4); WHITE BLOOD COUNT 5.38 x10e3/uL (4.8-10.8)
[2024-07-20 12:08] LABS: ANION GAP 15.6 mmol/L (8-16); CALCIUM 10.5 mg/dL (8.4-10.2); CREATININE, SERUM 0.7 mg/dL (0.57-1.11); POTASSIUM 4.6 mmol/L (3.5-5.1); URIC ACID 3.1 mg/dL (2.6-8.0)
[~2024-07-21] MED LIST changes: -FAMOTIDINE 20 MG/2 ML VIAL IV ONE
[2024-07-21] MEDS: LACTATED RINGER'S 1,000 ML ONE (06:37)
[2024-07-21] MEDS: CEFTRIAXONE 1 GM VIAL ONE (06:38)
[2024-07-21] MEDS: GENTAMICIN 80MG/NS 100 ML 200 ML IV ONE (06:38)
[2024-07-21] MEDS: ACETAMINOPHEN 1000 MG/100 ML IV ONE (10:50)
[2024-07-21] MEDS: PHENAZOPYRIDINE HCL 100 MG TAB ONE (10:50)
[2024-07-21] MEDS: ACETAMINOPHEN/CODEINE 300MG - 30MG TAB ONE (11:29)
[2024-07-21 11:55] VITALS: BP 141/64; PULSE 73; RESP 16; O2SAT 97
== END | disposition home or self-care (01) ==
LOC: OR 05:38
PROVIDERS: ATTEND Urology
DX: N20.0 Calculus of kidney (principal); N20.1 Calculus of ureter; Z46.6 Encounter for fitting and adjustment of urinary device; N13.1 Hydronephrosis with ureteral stricture, not elsewhere classified; R35.1 Nocturia; N32.81 Overactive bladder; N95.2 Postmenopausal atrophic vaginitis; N81.6 Rectocele; I25.10 Atherosclerotic heart disease of native coronary artery without angina pectoris; I10 Essential (primary) hypertension; E78.5 Hyperlipidemia, unspecified; J44.9 Chronic obstructive pulmonary disease, unspecified; E03.9 Hypothyroidism, unspecified; Z01.812 Encounter for preprocedural laboratory examination; Z79.02 Long term (current) use of antithrombotics/antiplatelets; Z79.899 Other long term (current) drug therapy; Z95.5 Presence of coronary angioplasty implant and graft
CPT/HCPCS: 36415; 50590; 52332; 52352; 74018; 80048; 84550; 85025; 87086; 88300; C1758; C1769; C2617; J0131; J0696; J1100; J1580; J2003; J2405; J2704; J3010; J7121

== ENCOUNTER → 2024-08-28 | Day surgery (SDC) | payer MEDICARE, OTHER ==
[~2024-08-28] MED LIST changes: -EPHEDRINE SULFATE INJ 50 MG/ML VIAL ONE; +FAMOTIDINE 20 MG/2 ML VIAL IV ONE; -GLYCOPYRROLATE INJ 0.2 MG/ML VIAL ONE; +LACTATED RINGER'S 1,000 ML ONE; +PHENAZOPYRIDINE HCL 100 MG TAB ONE; +SEVOFLURANE INHAL SOLN 250 ML PEN BTL ONE
[2024-08-28 06:46] LABS: BASOPHILS % 0.2 % (0.0-1.0); EOSINOPHILS # (AUTO) 0.3 (0.0-0.4); EOSINOPHILS % 3.2 % (0.0-6.0); HEMOGLOBIN 11.9 g/dL (12.0-16.0); LYMPHOCYTES # (AUTO) 0.7 (1.0-3.2); LYMPHOCYTES % 8.5 % (18.0-39.1); MEAN CORPUSCULAR HEMOGLOBIN 30.4 pg (28-32); MEAN CORPUSCULAR HGB CONC 33.1 g/dL (31-35); MEAN CORPUSCULAR VOLUME 92.1 fL (81-99); MONOCYTES # (AUTO) 0.8 (0.2-0.8); MONOCYTES % 8.8 % (4.4-11.3); NEUTROPHILS # (AUTO) 6.8 (2.1-6.9); NEUTROPHILS % 79.1 % (38.7-80.0); PLATELET COUNT 323 x10e3/uL (140-360); RED BLOOD COUNT 3.91 x10e6/uL (3.6-5.1); RED CELL DISTRIBUTION WIDTH 14.2 % (11.7-14.4); WHITE BLOOD COUNT 8.54 x10e3/uL (4.8-10.8)
[2024-08-28 07:00] LABS: ANION GAP 16.1 mmol/L (8-16); CALCIUM 10.3 mg/dL (8.4-10.2); CREATININE, SERUM 0.7 mg/dL (0.57-1.11); POTASSIUM 4.1 mmol/L (3.5-5.1); URIC ACID 3.2 mg/dL (2.6-8.0)
[2024-08-28] MEDS: LACTATED RINGER'S 1,000 ML ONE (07:43)
[2024-08-28] MEDS: CEFTRIAXONE 1 GM VIAL ONE (07:44)
[2024-08-28] MEDS: GENTAMICIN 80MG/NS 100 ML 100 ML IV ONE (07:45)
[2024-08-28 09:59] VITALS: TEMP 97.9
[2024-08-28] MEDS: PHENAZOPYRIDINE HCL 100 MG TAB PO ONE ×2 (10:20)
[2024-08-28] MEDS: FENTANYL CITRATE/PF 100MCG/2 ML INJ IV ONE ×2 (10:30→10:35)
[2024-08-28 10:39] LABS: BILIRUBIN,URINE NEGATIVE (NEGATIVE); CLARITY,URINE CLOUDY (CLEAR); COLOR,URINE YELLOW (YELLOW); GLUCOSE, URINE NEGATIVE (NEGATIVE); KETONES,URINE NEGATIVE (NEGATIVE); LEUKOCYTE ESTERASE ,URINE LARGE (NEGATIVE); NITRITE,URINE NEGATIVE (NEGATIVE); PH,URINE 7 (5 - 7); PROTEIN,URINE DIPSTICK >=300 (NEGATIVE); URINE UROBILINOGEN 0.2 mg/dL (0.2 - 1)
[2024-08-28 11:00] VITALS: BP 131/54; PULSE 63; RESP 16; O2SAT 94
== END | disposition home or self-care (01) ==
LOC: OR 05:42
PROVIDERS: ATTEND Urology
DX: N20.0 Calculus of kidney (principal); Z46.6 Encounter for fitting and adjustment of urinary device; N81.3 Complete uterovaginal prolapse; N95.2 Postmenopausal atrophic vaginitis; N36.2 Urethral caruncle; N32.81 Overactive bladder; I25.10 Atherosclerotic heart disease of native coronary artery without angina pectoris; I10 Essential (primary) hypertension; E03.9 Hypothyroidism, unspecified; E78.5 Hyperlipidemia, unspecified; J44.9 Chronic obstructive pulmonary disease, unspecified; Z79.02 Long term (current) use of antithrombotics/antiplatelets; Z79.899 Other long term (current) drug therapy; Z98.61 Coronary angioplasty status; Z87.891 Personal history of nicotine dependence
CPT/HCPCS: 36415; 52352; 74018; 74420; 80048; 81003; 84550; 85025; 88300; 93005; C1758; C1769; J0131; J0696; J1100; J1580; J2003; J2405; J2704; J3010; J7121